=== PATIENT | male | born 1950 | race Caucasian/White ===

== ENCOUNTER 2024-10-22 03:30 | Inpatient (IN) | payer OTHER, MEDICARE ==
[2024-10-22] VITALS (17 sets, daily range): BP systolic 77–146; BP diastolic 41–76; PULSE 56–103; RESP 11–23; TEMP 98–99.2; O2SAT 70–100
[~2024-10-22] VITALS: Ht 188 cm; Wt 55.0 kg
[2024-10-22] MEDS: ALBUTEROL SULF 2.5 MG/0.5ML(0.5%) NEB SOLN HHN ONE (03:45)
[2024-10-22] MEDS: IPRATROPIUM BROM 0.5 MG/2.5ML INH SOL HHN ONE (03:45)
[2024-10-22] MEDS: ETOMIDATE (2MG/ML) 20ML VIAL IV ONE ×2 (03:55→04:24)
[2024-10-22] MEDS: SUCCINYLCHOLINE CHLORIDE 20 MG/ML 10ML VIAL IV ONE ×2 (03:55→04:24)
--- NOTE | 2024-10-22 04:02 | ED.PDOC ---
SOB-HPI HPI Comments 74 year old male brought in by EMS presents to the ED with a chief complaint of shortness of breath onset today. Per EMS, patient was experiencing shortness of breath, used albuterol and nebulizer at home without improvement. Upon EMS arrival, patient's O2 sat was 80% on RA and had bilateral leg swelling. Patient was placed on an NRB, O2 sat was 99%. PMHx HTN, AL. Patient is a poor historian. No other symptoms or modifying factors present at this time. Chief Complaint: Shortness of Breath Time Seen by MD: 03:35 Primary Care Provider: CHIQUIS Reviewed notes: Medications, Allergies Information Source: Patient, Emergency Med Personnel Mode of Arrival: EMS Severity: Moderate Timing: Hours Duration: Since onset Context: At Rest PE Risk Factors: None History of: None Prehospital treatment: Oxygen, Treatment Modifying Factors: Nothing Associated Signs and Symptoms: Leg Swelling Vital Signs Vital Signs Date Time Temp Pulse Resp B/P (MAP) Pulse Ox O2 Delivery O2 Flow Rate FiO2 10/22/24 07:30 57 19 100 Mechanical Ventilator+ 60 60 10/22/24 07:30 97.5 114/48 (70) 97.5 10/22/24 07:21 60 Physical Exam General: Patient is lethargic, in respiratory distress Skin: Skin in warm, dry and intact. Appropriate color for ethnicity. HEENT: The head is normocephalic and atraumatic. Conjunctivae are clear without exudates or hemorrhage. Sclera is non-icteric. EOM are intact. No signs of nystagmus. Eyelids are normal in appearance without swelling or lesions. Oral mucosa is pink and moist Neck: The neck is supple with normal range of motion. Positive JVD. Cardiac: Heart rate and rhythm are normal. No murmurs, gallops, or rubs are auscultated. Respiratory: Positive respiratory distress, tachypnea. Rhonchi bilaterally Abdominal: Abdomen is soft, non-tender without distention. Bowel sounds are present and normoactive in all four quadrants. Extremities: Upper and lower extremities are atraumatic in appearance without deformity, positive bilateral pitting edema Review of Systems: Unable to obtain Past Medical History PAST MEDICAL HISTORY: HTN, AL Surgical History: CABG Family History Family History: Reviewed,noncontributory to illness Social History Smoker: Cigarettes Alcohol: Denies ETOH Use Drugs: Denies Drug Use Lives In: Home Was a procedure done? Was a procedure done?: Yes Sedation Sedation?: Yes Informed consent obtained: No Sedation start time: 03:56 Sedation end time: 03:56 Sedation total time: patient is currently sedated Intubation Prep: Preoxygenation Pretreated with: Sedation Medicated with: Succinylcholine (100 mg), Other (etomidate 20 mg) Intubation Approach: Orotracheal Intubation size: cm (24) Informed consent obtained: Yes Risks/benefits/alt described: Yes Differential Dx Differential Diagnosis: Asthma, Bronchitis, Cardiogenic Shock, CHF, COPD, Myocardial infarction, Pneumonia, Pneumothorax, Pulmonary Embolism, Respiratory Distress, URI, Other X-Ray, Labs, Meds, VS Vital Signs Date Time Temp Pulse Resp B/P (MAP) Pulse Ox O2 Delivery O2 Flow Rate FiO2 10/22/24 07:30 57 19 100 Mechanical Ventilator+ 60 60 10/22/24 07:30 97.5 57 19 114/48 (70) 100 97.5 10/22/24 07:21 63 20 100 Mechanical Ventilator+ 60 60 60 10/22/24 07:00 97.5 58 24 110/48 (68) 100 97.5 10/22/24 07:00 110/48 10/22/24 07:00 110/48 10/22/24 07:00 110/48 10/22/24 06:50 61 13 116/47 (70) 100 10/22/24 06:45 59 15 89/52 (64) 100 10/22/24 06:45 82/52 10/22/24 06:40 85/46 10/22/24 06:30 59 15 85/46 (59) 100 10/22/24 06:30 93/45 10/22/24 06:30 93/45 10/22/24 06:30 93/45 10/22/24 06:30 85/45 10/22/24 06:30 93/45 10/22/24 06:15 97.7 63 20 100/45 (63) 100 97.7 10/22/24 06:15 97.7 63 20 100/45 (63) 100 97.7 10/22/24 06:15 100/45 10/22/24 06:15 100/45 10/22/24 06:15 100/45 10/22/24 06:03 67 20 77/41 (53) 100 60 10/22/24 06:00 76/40 10/22/24 06:00 77/41 10/22/24 06:00 68 20 76/40 (52) 100 10/22/24 05:55 75/43 10/22/24 05:50 74/44 10/22/24 05:45 67/42 10/22/24 05:45 67/42 10/22/24 05:45 71 20 67/42 (50) 100 10/22/24 05:30 69/35 10/22/24 05:30 71 20 69/35 (46) 100 10/22/24 05:15 71 20 93/48 (63) 100 10/22/24 05:00 73 18 121/57 (78) 100 10/22/24 05:00 121/57 10/22/24 04:45 66 22 132/78 (96) 96 10/22/24 04:45 132/78 10/22/24 04:36 146/76 10/22/24 04:30 76 12 95/54 (68) 98 10/22/24 04:30 95/54 10/22/24 04:15 92 22 146/76 (99) 96 10/22/24 04:11 83 20 146/76 (99) 70 100 10/22/24 04:10 146/76 10/22/24 04:00 95 22 150/75 (100) 100 10/22/24 04:00 92 22 96 Mechanical Ventilator+ 50 50 10/22/24 04:00 89 10/22/24 03:50 97.9 65 26 165/72 (103) 99 10/22/24 03:45 78 26 171/72 (105) 84 10/22/24 03:31 80 Lab Test 10/22/24 07:33 10/22/24 07:10 10/22/24 06:37 10/22/24 06:35 Range/Units Blood Gas Specimen Type Arterial Blood Gas Sample Site Right radial Blood Gas Patient Temperature 37.0 Arterial Blood Date Drawn [id number] Arterial Blood pH 7.290 L 7.350-7.450 Arterial Blood Partial Pressure CO2 53.1 H 35.0-48.0 mmHg Arterial Blood Partial Pressure O2 198.5 H 83.0-108.0 mmHg Arterial Blood HCO3 25.0 21.0-28.0 mmol/L Arterial Blood Oxygen Saturation 99.2 H 94.0-98.0 % Arterial Blood Base Excess -2.3 L -2.0-3.0 mmol/L Arterial Blood Oxyhemoglobin 97.2 94.0-98.0 % Arterial Blood Carboxyhemoglobin 1.4 0.5-1.5 % Arterial Blood Methemoglobin 0.6 0.0-1.5 % Javad Test Modified Blood Gas Total Hemoglobin 14.30 13.5-17.5 g/dL Blood Gas Set Respiration Rate 20.0 Blood Gas Modality Vent - ac FiO2 % 60.0 Blood Gas Tidal Volume 500.0 Blood Gas PEEP or CPAP 5.0 Troponin I High Sensitivity 504 *H </=54 ng/L Triglycerides Level 90 < 150 mg/dL Cholesterol Level 117 < 200 mg/dL LDL Cholesterol 64 < 100 mg/dL HDL Cholesterol 38 L 40-59 mg/dL Thyroid Stimulating Hormone (TSH) 2.77 0.55-4.78 uIU/mL Influenza Type A Antigen Negative Negative Influenza Type B Antigen Negative Negative SARS-CoV-2 Antigen (Rapid) Negative NEGATIVE Lactic Acid Level 2.9 *H 0.4-2.0 mmol/L Test 10/22/24 05:03 10/22/24 04:22 10/22/24 04:04 10/22/24 03:50 Range/Units Troponin I High Sensitivity 143 *H 155 *H </=54 ng/L Blood Gas Specimen Type Arterial Blood Gas Sample Site Right radial Blood Gas Patient Temperature 37.0 Arterial Blood Date Drawn [id number] Arterial Blood pH 7.053 *L 7.350-7.450 Arterial Blood Partial Pressure CO2 86.0 *H 35.0-48.0 mmHg Arterial Blood Partial Pressure O2 396.1 *H 83.0-108.0 mmHg Arterial Blood HCO3 23.4 21.0-28.0 mmol/L Arterial Blood Oxygen Saturation 99.8 H 94.0-98.0 % Arterial Blood Base Excess -9.1 L -2.0-3.0 mmol/L Arterial Blood Oxyhemoglobin 97.3 94.0-98.0 % Arterial Blood Carboxyhemoglobin 1.8 H 0.5-1.5 % Arterial Blood Methemoglobin 0.7 0.0-1.5 % Javad Test Modified Blood Gas Total Hemoglobin 15.10 13.5-17.5 g/dL Blood Gas Set Respiration Rate 20.0 Blood Gas Modality Vent - ac FiO2 % 100.0 Blood Gas Tidal Volume 450.0 Blood Gas PEEP or CPAP 5.0 Blood Gas Critical Value Read Back Yes Blood Gas Notified Whom Md geri gonzalez Blood Gas Notified Time [id number] Blood Gas Notified By Rt andrew reaves Urine Opiates Screen Neg NEGATIVE Urine Fentanyl Screen Neg NEGATIVE Urine Barbiturates Screen Neg NEGATIVE Urine Phencyclidine Screen Neg NEGATIVE Urine Amphetamines Screen Neg NEGATIVE Urine Benzodiazepines Screen Neg NEGATIVE Urine Cocaine Screen Neg NEGATIVE Urine Cannabinoids Screen Neg NEGATIVE White Blood Count 9.5 4.4-10.8 10^3/uL Red Blood Count 4.88 4.5-5.90 10^6/uL Hemoglobin 15.0 13.5-17.5 g/dL Hematocrit 45.2 41.0-53.0 % Mean Corpuscular Volume 92.6 80.0-100.0 fL Mean Corpuscular Hemoglobin 30.8 28.0-32.0 pg Mean Corpuscular Hemoglobin Concent 33.2 32.0-36.0 g/dL Red Cell Distribution Width 14.5 H 11.8-14.3 % Platelet Count 278 140-450 10^3/uL Mean Platelet Volume 7.4 6.9-10.8 fL Neutrophils (%) (Auto) 78.9 37.0-80.0 % Lymphocytes (%) (Auto) 14.0 10.0-50.0 % Monocytes (%) (Auto) 6.6 0.0-12.0 % Eosinophils (%) (Auto) 0.1 0.0-7.0 % Basophils (%) (Auto) 0.4 0.0-2.0 % Neutrophils # (Auto) 7.5 1.6-8.6 10 ^3/uL Lymphocytes # (Auto) 1.3 0.4-5.4 10 ^3/uL Monocytes # (Auto) 0.6 0-1.3 10 ^3/uL Eosinophils # (Auto) 0 0-0.8 10 ^3/uL Basophils # (Auto) 0 0-0.2 10 ^3/uL Nucleated Red Blood Cells 0.2 % Sodium Level 130 L 136-145 mmol/L Potassium Level 5.2 H 3.5-5.1 mmol/L Chloride Level 100 98-107 mmol/L Carbon Dioxide Level 24 20-31 mmol/L Anion Gap 6 5-15 Blood Urea Nitrogen 17 9-23 mg/dL Creatinine 1.28 0.700-1.30 mg/dL Glomerular Filtration Rate Calc 59 >90 mL/min BUN/Creatinine Ratio 13.3 10.0-20.0 Serum Glucose 303 H 74-106 mg/dL Lactic Acid Level 2.7 *H 0.4-2.0 mmol/L Calcium Level 9.1 8.7-10.4 mg/dL Total Bilirubin 0.4 0.2-1.0 mg/dL Aspartate Amino Transferase (AST) 67 H 13-40 U/L Alanine Aminotransferase (ALT) 52 H 7-40 U/L Alkaline Phosphatase 83 46-116 U/L B-Type Natriuretic Peptide 3521.35 0-100 pg/mL Total Protein 6.6 5.7-8.2 g/dL Albumin 4.0 3.2-4.8 g/dL Test 10/22/24 03:44 Range/Units POC Glucose 213 H 70-106 mg/dl Microbiology Date/Time Source Procedure Growth Status 10/22/24 04:12 Sputum Gram Stain - Final Resulted 10/22/24 04:12 Sputum Respiratory Culture Pending Resulted Current Medications Medications (Trade) Dose Ordered Sig/Diallo Route Start Time Stop Time Status Last Admin Methylprednisolone Sodium Succinate (Solu Medrol) 125 mg ONCE ONCE IV 10/22/24 03:45 10/22/24 03:46 DC 10/22/24 04:35 Furosemide (Lasix Injection) 40 mg ONCE ONCE IV 10/22/24 03:45 10/22/24 03:46 DC 10/22/24 04:36 Propofol 100 ml @ 1.566 mls/ hr Q24H IV 10/22/24 04:00 10/22/24 14:09 Etomidate 20 mg ONCE ONCE IV 10/22/24 04:00 10/22/24 04:01 DC 10/22/24 03:55 Succinylcholine Chloride (Quelicin) 100 mg ONCE ONCE IV 10/22/24 04:00 10/22/24 04:01 DC 10/22/24 03:55 Insulin Human Regular (InsuLIN R) 5 units ONCE ONCE IV 10/22/24 05:00 10/22/24 05:01 DC 10/22/24 05:58 Norepinephrine Bitartrate 250 ml @ 3.75 mls/hr Q24H IV 10/22/24 05:45 10/22/24 05:45 Midazolam HCl 50 ml @ 1 mls/hr Q24H IV 10/22/24 06:30 10/22/24 14:54 DC 10/22/24 11:46 [place] [id number] Ph: [phone] DIAGNOSTIC IMAGING Diagnostic Imaging Report : [id number] Signed PATIENT: JENNIFER HERMOSILLO ACCT: [id number] UNIT: [id number] : 1950 LOC: ER ROOM / BED: / AGE / SEX: 74 / M ADM STATUS: REG ER SERVICE [id number] ORDERING PHYSICIAN: DANIEL GONZALEZ MD PROCEDURE(s): CXRP - CHEST PORTABLE REASON: dyspnea ORDER NUMBER(s): [id number], ACCESSION NUMBER(s): [id number] CHEST RADIOGRAPH Indication: dyspnea Technique: Single frontal view of the chest was obtained Comparison: CHEST PORTABLE on DOS: 11/30/21 FINDINGS: Lines and Tubes: The enteric tube terminates in the region of the stomach. Endotracheal tube terminates 4.7 cm above the kathi. Lungs: Diffuse bilateral opacities. Pleura: No effusion. No pneumothorax. Cardiomediastinal contours: Unremarkable Bones: No acute osseous abnormality. IMPRESSION: 1. Support lines and tubes as described. 2. Diffuse bilateral opacities suspicious for multifocal pneumonia. ATED BY: VALDO SILVER MD DICTATED DATE/TIME: 10/22/24431 SIGNED BY: VALDO SILVER MD SIGNED DATE/TIME: 10/22/24431 CC: Time of 1ST Reevaluation: 04:05 Reevaluation 1ST: Unchanged Patient Education/Counseling: Diagnosis, Treatment, Prognosis Family Education/Counseling: No Family Present Additional Information The following tests were ordered, and results were reviewed by me: EKG-x3, CBC, CMP,BNP, XY CHEST, BLOOD ALCOHOL, TROP-x3, LA W/ REFLEX, ABG W/ CO-OX, RESPIRATORY CULTURE W/ GS, Additional Information was gathered from interviewing the following independent historians: EMS I reviewed and agreed with the following test results read by other providers: BHARATHI CHEST I discussed treatment and results with medical personnel and patient Departure 1 Departure Time of Disposition: 05:04 Impression: Primary Impression: Acute hypercapnic respiratory failure Additional Impressions: Acute exacerbation of CHF (congestive heart failure) Endotracheally intubated Elevated troponin I level Respiratory acidosis Pneumonia Disposition: ADMITTED INPATIENT Admit to: ICU Condition: Critical Comments 74-year-old male arrived to the emergency department in respiratory distress. Symptoms likely secondary to acute pulmonary edema or pneumonia. Shortly after his arrival his respiratory rate decreased, oxygen saturation decreased. He was intubated successfully. HS Troponin elevated will trend to determine if it is increasing/possibly secondary to ACS however patient did not report chest pain. NO ST elevations on EKG. VT increased, will repeat. CT head pending for evaluation of AMS, though likely secondary to respiratory status. Patient admitted for further treatment, monitoring and evaluation. Extensive evaluation was performed in attempt to identify or rule out: (See differential diagnosis section) The following tests were ordered, and results were reviewed by me: (See diagnostic results section) The following test were independently interpreted by me: Chest [id number] vascular congestion I reviewed and agreed with the following test results read by other providers: N/A I reviewed the following notes from the pt's past medical encounters: (None available at this time) Additional information was gathered from interviewing the following independent historians: EMS personel Discussion of management or test interpretation with external physician/other qualified health intensive care ambulance paramedic: Dr. Champion with [employer]. Auth # [id number] Addressed an acute or chronic illness that poses a threat to life or bodily function: Acute respiratory failure, respiratory acidosis,CHF exacerbation Decision regarding hospitalization or escalation of hospital level of care: Risk and benefits of admission for further treatment of patient's condition was considered. Due to patient's current clinical condition, high risk of decline and poor outcome if discharged and need for further inpatient management and monitoring, patient will be admitted to the hospital. Drug therapy requiring intensive monitoring for toxicity:Furosemide, propofol, etomidate, succinylcholine, Parenteral controlled substances: N/A Decision regarding elective major surgery with identified patient or procedure risk factors: N/A Decision regarding emergency major surgery: N/A Decision not to resuscitate or to de-escalate care because of poor prognosis: N/A Diagnosis or treatment significantly limited by social determinants of health: N/A Critical Care Note Critical Care Time?: Yes (35 min-critical care time only) Critical care comment: Due to a high probability of clinically significant, life threatening deterioration, the patient required my highest level of preparedness to intervene emergently and I personally spent this critical care time directly and personally managing the patient. This critical care time included obtaining a history; examining the patient; pulse oximetry; ordering and review of studies; arranging urgent treatment with development of a management plan; evaluation of patient's response to treatment; frequent reassessment; and, discussions with other providers. This critical care time was performed to assess and manage the high probability of imminent, life-threatening deterioration that could result in multi-organ failure. It was exclusive of separately billable procedures and treating other patients and teaching time. Please see my other sections and the rest of the note for further information on patient assessment and treatment. Stability Stability form required: No Heart Score Heart Score: Heart Score Response (Comments) Value History N/A 0 EKG N/A 0 Age N/A 0 Risk Factors N/A 0 Troponin N/A 0 Total 0 I personally scribed for DANIEL GONZALEZ MD ([email or web address]) on 10/22/24 at 04:02. Electronically submitted by Una Fuller ([email or web address]). I personally scribed for DANIEL GONZALEZ MD ([email or web address]) on 10/22/24 at 04:21. Electronically submitted by Una Fuller ([email or web address]). I personally scribed for DANIEL GONZALEZ MD ([email or web address]) on 10/22/24 at 04:44. Electronically submitted by Una Fuller ([email or web address]). I personally scribed for DANIEL GONZALEZ MD ([email or web address]) on 10/22/24 at 06:02. Electronically submitted by Una Fuller ([email or web address]). DANIEL GONZALEZ MD Oct 22, 2024 04:02
[2024-10-22] MEDS: PROPOFOL 100 ML IV SCH (04:10)
[2024-10-22] MEDS: PROPOFOL 100 ML IV ONE (04:24)
[2024-10-22 04:32] LABS: Basophils # (auto) 0 10 ^3/uL (0-0.2); Basophils % (auto) 0.4 % (0.0-2.0); Eosinophils # (auto) 0 10 ^3/uL (0-0.8); Eosinophils % (auto) 0.1 % (0.0-7.0); Hematocrit 45.2 % (41.0-53.0); Lymphocytes # (auto) 1.3 10 ^3/uL (0.4-5.4); Mean Corpuscular Hemoglobin 30.8 pg (28.0-32.0); Mean Corpuscular Hgb Conc. 33.2 g/dL (32.0-36.0); Mean Corpuscular Volume 92.6 fL (80.0-100.0); Monocytes # (auto) 0.6 10 ^3/uL (0-1.3); Monocytes % (auto) 6.6 % (0.0-12.0); Neutrophils # (auto) 7.5 10 ^3/uL (1.6-8.6); Neutrophils % (auto) 78.9 % (37.0-80.0); Nucleated Red Blood Cells % 0.2 %; Platelet Count (auto) 278 10^3/uL (140-450); Red Blood Cells 4.88 10^6/uL (4.5-5.90); Red Cell Distribution Width 14.5 % (11.8-14.3); White Blood Cell 9.5 10^3/uL (4.4-10.8)
--- NOTE | 2024-10-22 04:34 | DVH ---
CHEST RADIOGRAPH Indication: dyspnea Technique: Single frontal view of the chest was obtained Comparison: CHEST PORTABLE on DOS: 11/30/21 FINDINGS: Lines and Tubes: The enteric tube terminates in the region of the stomach. Endotracheal tube terminat es 4.7 cm above the kathi. Lungs: Diffuse bilateral opacities. Pleura: No effusion. No pneumothorax. Cardiomediastinal contours: Unremarkable Bones: No acute osseous abnormality. IMPRESSION: 1. Support lines and tubes as described. 2. Diffuse bilateral opacities suspicious for multifocal pneumonia.
[2024-10-22] MEDS: methylPREDNISolone SOD SUCC 125 MG/2 ML VL IV ONE (04:35)
[2024-10-22] MEDS: FUROSEMIDE 40 MG/4 ML VIAL IV ONE (04:36)
[2024-10-22 04:44] LABS: Base Excess -9.1 mmol/L (-2.0-3.0)
[2024-10-22 04:46] LABS: Alkaline Phosphatase 83 U/L (46-116); Anion Gap 6 (5-15); BUN/Creatinine Ratio 13.3 (10.0-20.0); Bilirubin, Total 0.4 mg/dL (0.2-1.0); Blood Urea Nitrogen 17 mg/dL (9-23); Calcium 9.1 mg/dL (8.7-10.4); Carbon Dioxide 24 mmol/L (20-31); Chloride 100 mmol/L (98-107)
[2024-10-22 04:47] LABS: Total Protein 6.6 g/dL (5.7-8.2)
[2024-10-22 04:50] LABS: Aspartate Aminotransferase 67 U/L (13-40); Glucose 303 mg/dL (74-106); Potassium 5.2 mmol/L (3.5-5.1); Sodium 130 mmol/L (136-145)
[2024-10-22 04:51] LABS: Alanine Aminotransferase 52 U/L (7-40)
[2024-10-22 04:54] LABS: Lactic Acid w/Reflex 2.7 mmol/L (0.4-2.0)
[2024-10-22] MEDS: NOREPINEPHRINE 8 MG/250ML KIT 250 ML IV SCH (05:45)
[2024-10-22] MEDS: NOREPINEPHRINE 8 MG/250ML KIT 250 ML IV ONE (05:52)
[2024-10-22] MEDS: InsuLIN REG 1unit/0.01ml Soln (100units/ml) IV ONE (05:58)
[2024-10-22] MEDS: MIDAZOLAM DRIP 50 mg/50mL 50 ML IV SCH (06:30)
[2024-10-22] MEDS: MIDAZOLAM DRIP 50 mg/50mL 50 ML IV ONE (06:33)
--- NOTE | 2024-10-22 07:03 | ECG ---
[facility] Test Date: 2024-10-22 Test Time: 03:31:43 Pat Name: JENNIFER HERMOSILLO Department: er Room: [facility] Gender: M [employer]: corrie : 1950 Requested By: EMERGENCY EMERGENCY Order Number: [id number] Reading MD: Bryant Lovell Measurements Intervals [place] Rate: 80 P: 85 ME: 110 QRS: -162 QRSD: 158 T: 26 QT: 397 QTc: 458 Interpretive Statements Sinus rhythm Borderline short ME interval Biatrial enlargement RBBB and LPFB Inferior infarct, age indeterminate Probable lateral infarct, old Artifact in lead(s) III,aVF,V6 Electronically Signed On 10-22-2024 9:51:30 PST by Bryant Lovell Please click the below link to view image of tracing.
[2024-10-22 07:29] LABS: Rapid Influenza A Negative (Negative); Rapid Influenza B Negative (Negative)
[2024-10-22 07:30] LABS: COVID19 ANTIGEN SOFIA FIA NEGATIVE (NEGATIVE)
[2024-10-22] MEDS ORDERED: MORPHINE SULFATE INJ 2 MG/ml SYRG IV PRN (07:45)
[2024-10-22] MEDS ORDERED: NITROGLYCERIN 0.4 MG SL TAB SL PRN (07:45)
[2024-10-22] MEDS ORDERED: ACETAMINOPHEN 325 MG TAB PO PRN (07:45)
[2024-10-22] MEDS: cefTRIAXone 1GM/50ML D5W 50 ML IV ONE (07:45)
[2024-10-22] MEDS ORDERED: ONDANSETRON HCL 4 MG/2 ML VIAL IV PRN (07:45)
[2024-10-22] MEDS ORDERED: ALBUTEROL SULF 2.5 MG/0.5ML(0.5%) NEB SOLN NEB PRN (07:45)
[2024-10-22] MEDS ORDERED: IPRATROPIUM BROM 0.5 MG/2.5ML INH SOL NEB PRN (07:45)
[2024-10-22 07:50] LABS: Base Excess -2.3 mmol/L (-2.0-3.0)
[2024-10-22] MEDS ORDERED: ASPI-325 PO (08:05)
[2024-10-22] MEDS ORDERED: ATOR40TA52 PO (08:05)
[2024-10-22] MEDS ORDERED: CLOP75TA70 PO (08:05)
[2024-10-22] MEDS ORDERED: MET25T PO (08:05)
--- NOTE | 2024-10-22 08:07 | DVHHP2 ---
History of Present Illness Reason for Visit: Shortness of breath History of Present Illness Josh Harmon is a 74-year-old male with past medical history of hypertension, COPD, CHF, [place], and CABG x4 greater than 10 years ago at [facility] [place] who presents to the ED for SOB x several months. 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 reports that patient has smokes cigarettes is also on the patch, drinks alcohol, and denies illicit drug use. Patient's granddaughter who is an ICU nurse reports that patient had abnormal D-dimer had an ultrasound DVT done which was negative. Patient was noted to have to 3+ edema bilateral lower extremities and was given Lasix to start today however was not able to start due to his worsening symptoms and here for evaluation. Family also reports that patient was able to ambulate but was short of breath while speaking no more than 3 words at a time. Patient also took nebulizer treatments with no relief. Family denies any recent illnesses or sick contacts. Cardiovascular: CHF, HTN, [place] Pulmonary: COPD Past Surgical History: CABG Family History: DM, Other (Dad with diabetes and CHF) Smoke: <1 pack per day ALCOHOL: occassional Drugs: None Lives: with Family Domestic Violence: Neg Review of Systems Constitutional: No: Fever, Chills, Sweats, Weakness, Malaise, Other Eyes: No: Pain, Vision change, Conjunctivae inflammation, Eyelid inflammation, Other, Redness ENT: No: Ear pain, Ear discharge, Nose pain, Nose discharge, Nose congestion, Mouth pain, Mouth swelling, Throat pain, Throat swelling, Other Respiratory: Shortness of breath; No: Cough, Dry, SOB with excertion, Wheezing, Hemoptysis, Pleuritic Pain, Sputum, Wheezing, Other Cardiovascular: No: Chest Pain, Palpitations, Orthopnea, Paroxysmal Noc. Dyspnea, Edema, Lt Headedness, Other Gastrointestinal: No: Nausea, Vomiting, Abdominal Pain, Diarrhea, Constipation, Melena, Hematochezia, Other Genitourinary: No Dysuria, No Frequency, No Incontinence, No Hematuria, No Retention, No Other Musculoskeletal: No: other, neck pain, shoulder pain, arm pain, back pain, hand pain, leg pain, foot pain Skin: No: Rash, Lesions, Jaundice, Bruising, Other Neurological: No: Weakness, Numbness, Incoordination, Change in speech, Confusion, Seizures, Other Allergies: Coded Allergies: NO KNOWN ALLERGIES (Unverified , 11/21/13) Medications Current Medications Medications Dose Ordered Sig/Diallo Route Start Time Stop Time Status Last Admin Dose Admin Propofol 100 ml @ 1.566 mls/ hr Q24H IV 10/22/24 04:00 10/22/24 04:10 1.566 MLS/HR Norepinephrine Bitartrate 250 ml @ 3.75 mls/hr Q24H IV 10/22/24 05:45 10/22/24 05:45 3.75 MLS/HR Midazolam HCl 50 ml @ 1 mls/hr Q24H IV 10/22/24 06:30 10/22/24 06:30 1 MLS/HR Ondansetron HCl 4 mg Q4HP PRN IV 10/22/24 07:45 UNV Enoxaparin Sodium 30 mg DAILY SC 10/22/24 10:00 UNV Acetaminophen 650 mg Q6HP PRN PO 10/22/24 07:45 UNV Nitroglycerin 0.4 mg Q5MINP PRN SL 10/22/24 07:45 UNV Morphine Sulfate 2 mg Q30M PRN IV 10/22/24 07:45 UNV Ceftriaxone Sodium 50 ml @ 100 mls/hr DAILY@09 IV 10/22/24 09:00 UNV Azithromycin 250 ml @ 125 mls/hr DAILY IV 10/22/24 10:00 UNV Methylprednisolone Sodium Succinate 40 mg Q8HR IV 10/22/24 14:00 UNV Albuterol 2.5 mg Q4HR NEB 10/22/24 10:00 UNV Albuterol 2.5 mg Q2HPRN PRN NEB 10/22/24 07:45 UNV Ipratropium [place] 0.5 mg Q4HR NEB 10/22/24 10:00 UNV Ipratropium [place] 0.5 mg Q2HPRN PRN NEB 10/22/24 07:45 UNV Exam Vital Signs Vital Signs Date Time Temp Pulse Resp B/P (MAP) Pulse Ox O2 Delivery O2 Flow Rate FiO2 10/22/24 07:21 63 20 100 Mechanical Ventilator+ 60 60 60 10/22/24 07:00 97.5 110/48 (68) 97.5 HEENT: Atraumatic Respiratory: Normal air movement Cardiovascular: Normal S1, Normal S2 Abdominal: Soft Extremities: No cyanosis Skin: No significant lesion Labs/Xrays Labs Test 10/22/24 07:33 10/22/24 07:10 10/22/24 06:37 10/22/24 06:35 Range/Units Blood Gas Specimen Type Arterial Blood Gas Sample Site Right radial Blood Gas Patient Temperature 37.0 Arterial Blood Date Drawn [id number] Arterial Blood pH 7.290 L 7.350-7.450 Arterial Blood Partial Pressure CO2 53.1 H 35.0-48.0 mmHg Arterial Blood Partial Pressure O2 198.5 H 83.0-108.0 mmHg Arterial Blood HCO3 25.0 21.0-28.0 mmol/L Arterial Blood Oxygen Saturation 99.2 H 94.0-98.0 % Arterial Blood Base Excess -2.3 L -2.0-3.0 mmol/L Arterial Blood Oxyhemoglobin 97.2 94.0-98.0 % Arterial Blood Carboxyhemoglobin 1.4 0.5-1.5 % Arterial Blood Methemoglobin 0.6 0.0-1.5 % Javad Test Modified Blood Gas Total Hemoglobin 14.30 13.5-17.5 g/dL Blood Gas Set Respiration Rate 20.0 Blood Gas Modality Vent - ac FiO2 % 60.0 Blood Gas Tidal Volume 500.0 Blood Gas PEEP or CPAP 5.0 Troponin I High Sensitivity 504 *H </=54 ng/L Influenza Type A Antigen Negative Negative Influenza Type B Antigen Negative Negative SARS-CoV-2 Antigen (Rapid) Negative NEGATIVE Lactic Acid Level 2.9 *H 0.4-2.0 mmol/L Test 10/22/24 04:22 10/22/24 03:50 10/22/24 03:44 Range/Units Blood Gas Critical Value Read Back Yes Blood Gas Notified Whom Md geri martinez Blood Gas Notified Time [id number] Blood Gas Notified By Rt andrew reaves White Blood Count 9.5 4.4-10.8 10^3/uL Red Blood Count 4.88 4.5-5.90 10^6/uL Hemoglobin 15.0 13.5-17.5 g/dL Hematocrit 45.2 41.0-53.0 % Mean Corpuscular Volume 92.6 80.0-100.0 fL Mean Corpuscular Hemoglobin 30.8 28.0-32.0 pg Mean Corpuscular Hemoglobin Concent 33.2 32.0-36.0 g/dL Red Cell Distribution Width 14.5 H 11.8-14.3 % Platelet Count 278 140-450 10^3/uL Mean Platelet Volume 7.4 6.9-10.8 fL Neutrophils (%) (Auto) 78.9 37.0-80.0 % Lymphocytes (%) (Auto) 14.0 10.0-50.0 % Monocytes (%) (Auto) 6.6 0.0-12.0 % Eosinophils (%) (Auto) 0.1 0.0-7.0 % Basophils (%) (Auto) 0.4 0.0-2.0 % Neutrophils # (Auto) 7.5 1.6-8.6 10 ^3/uL Lymphocytes # (Auto) 1.3 0.4-5.4 10 ^3/uL Monocytes # (Auto) 0.6 0-1.3 10 ^3/uL Eosinophils # (Auto) 0 0-0.8 10 ^3/uL Basophils # (Auto) 0 0-0.2 10 ^3/uL Nucleated Red Blood Cells 0.2 % Sodium Level 130 L 136-145 mmol/L Potassium Level 5.2 H 3.5-5.1 mmol/L Chloride Level 100 98-107 mmol/L Carbon Dioxide Level 24 20-31 mmol/L Anion Gap 6 5-15 Blood Urea Nitrogen 17 9-23 mg/dL Creatinine 1.28 0.700-1.30 mg/dL Glomerular Filtration Rate Calc 59 >90 mL/min BUN/Creatinine Ratio 13.3 10.0-20.0 Serum Glucose 303 H 74-106 mg/dL Calcium Level 9.1 8.7-10.4 mg/dL Total Bilirubin 0.4 0.2-1.0 mg/dL Aspartate Amino Transferase (AST) 67 H 13-40 U/L Alanine Aminotransferase (ALT) 52 H 7-40 U/L Alkaline Phosphatase 83 46-116 U/L B-Type Natriuretic Peptide 3521.35 0-100 pg/mL Total Protein 6.6 5.7-8.2 g/dL Albumin 4.0 3.2-4.8 g/dL POC Glucose 213 H 70-106 mg/dl CHEST RADIOGRAPH Indication: s/po central line placement verification Technique: Single frontal view of the chest was obtained Comparison: XY CHEST PORTABLE on DOS: 10/22/24, CHEST PORTABLE on DOS: 11/30/21, XY CHEST PORTABLE on DOS: 10/22/24 FINDINGS: Lines and Tubes: The enteric tube terminates in the region of the stomach. Endotracheal tube terminates 4.7 cm above the kathi. Lungs: Diffuse bilateral opacities. Pleura: No effusion. No pneumothorax. Cardiomediastinal contours: Unremarkable Bones: No acute osseous abnormality. IMPRESSION: 1. Support lines and tubes as described. 2. Diffuse bilateral opacities suspicious for multifocal pneumonia. CHEST RADIOGRAPH Indication: dyspnea Technique: Single frontal view of the chest was obtained Comparison: CHEST PORTABLE on DOS: 11/30/21 FINDINGS: Lines and Tubes: The enteric tube terminates in the region of the stomach. Endotracheal tube terminates 4.7 cm above the kathi. Lungs: Diffuse bilateral opacities. Pleura: No effusion. No pneumothorax. Cardiomediastinal contours: Unremarkable Bones: No acute osseous abnormality. IMPRESSION: 1. Support lines and tubes as described. Assessment/Plan Assessment/Plan Assessment/Plan: Acute hypoxic respiratory failure likely due to PNA Respiratory acidosis Lactic acidosis likely due to sepsis Hyponatremia Hyperkalemia Bradycardia Hyperkalemia protocol done in ED Elevated troponins Labs Chest x-ray Sedation Pressor Respiratory treatments Diuretics IV steroids ABG COVID test Flu test RSV test CT head Respiratory culture Troponin BNP EKG Lactic Blood cultures Last echo on 11/22/2023 EF 58% Echo ordered Cardiology consult IV antibiotics-ceftriaxone plus azithromycin A.m. chest x-ray A.m. labs UDS Lipid panel TSH CT chest Hyperglycemia A1c ISS and Accu-Cheks Chronic Hypertension Continue home medications History of CHF Strict I&Os Daily weights Tobacco use Patient currently uses nicotine patch Counseled patient's family on cessation of tobacco use FEN/PPX NPO Hep-Lock DVT ppx -patient on Plavix PUD ppx - Protonix Discussed plan of care with patient's , granddaughter, and nurse Home medications reconciled Admit to ICU Plan discussed with: Spouse, Other (Granddaughter Vanessa, she will ) My Orders Orders - TAQUERIA ERICKSON Procedure Category Date Status Time Admit ADMIT 10/22/24 Transmitted 07:43 Allergies [facility] 10/22/24 Transmitted 07:43 Code Status CODE 10/22/24 Transmitted 07:43 Ondansetron Hcl PHA 10/22/24 Logged (Zofran) 07:45 Complete Blood Count LAB 10/23/24 Verified 04:00 Comprehensive LAB 10/23/24 Verified Metabolic Panel 04:00 Npo (Nothing By DIET 10/22/24 Transmitted Mouth) Diet Breakfast Enoxaparin Sodium PHA 10/22/24 Logged (Lovenox) 10:00 Acetaminophen Tablet PHA 10/22/24 Logged (Tylenol Tablet) 07:45 Nitroglycerin PHA 10/22/24 Logged Sublingual (Ntrostat 07:45 Morphine Sulfate PHA 10/22/24 Logged Injection 07:45 Stat Ekg For Chest [facility] 10/22/24 Transmitted Pain 07:43 Notify Md Of Changes [facility] 10/22/24 Transmitted From Base 07:43 Pipe Cutter For [facility] 10/22/24 Transmitted 24 Hours 07:43 Emergency Dysrhythmia [facility] 10/22/24 Transmitted Protocol 07:43 Rhythm Strips Once [facility] 10/22/24 Transmitted Every Shift 07:43 Oxygen By Nasal RT 10/22/24 Transmitted Cannula 07:43 Ceftriaxone 1gm/50ml PHA 10/22/24 Logged D5w (Rocephin) 09:00 Ceftriaxone 1gm/50ml PHA 10/22/24 Logged D5w (Rocephin) 07:45 Azithromycin 500mg/ PHA 10/22/24 Logged 250ml (Zithromax 50 10:00 Methylprednisolone PHA 10/22/24 Logged Sod Succ (Solu Medrol 14:00 Albuterol Medneb PHA 10/22/24 Logged (Ventolin Medneb) 10:00 Albuterol Medneb PHA 10/22/24 Logged (Ventolin Medneb) 07:45 Ipratropium Medneb PHA 10/22/24 Logged (Atrovent Medneb) 10:00 Ipratropium Medneb PHA 10/22/24 Logged (Atrovent Medneb) 07:45 Furosemide Injection PHA 10/22/24 Verified (Lasix Injection) 18:00 Date of Service: Oct 22, 2024 Billing Provider: TAQUERIA ERICKSONP Common Visit Codes: [id number] INP/OBS CARE (HIGH) TAQUERIA ERICKSON UPHOLSTERER APPRENTICE Oct 22, 2024 08:07
--- NOTE | 2024-10-22 08:18 | DVH ---
CHEST RADIOGRAPH Indication: s/po central line placement verification Technique: Single frontal view of the chest was obtained Comparison: XY CHEST PORTABLE on DOS: 10/22/24, CHEST PORTABLE on DOS: 11/30/21, XY CHEST PORTABLE on DO S: 10/22/24 FINDINGS: Lines and Tubes: The enteric tube terminates in the region of the stomach. Endotracheal tube terminat es 4.7 cm above the kathi. Lungs: Diffuse bilateral opacities. Pleura: No effusion. No pneumothorax. Cardiomediastinal contours: Unremarkable Bones: No acute osseous abnormality. IMPRESSION: 1. Support lines and tubes as described. 2. Diffuse bilateral opacities suspicious for multifocal pneumonia.
[2024-10-22] MEDS: cefTRIAXone 1GM/50ML D5W 50 ML IV SCH (09:00)
[2024-10-22] MEDS: AZITHROMYCIN 500MG/ 250ML 250 ML IV SCH (10:00)
--- NOTE | 2024-10-22 10:11 | DVHINCON2 ---
Date Seen: Oct 22, 2024 Referring Physician WILIAM Rhodes Reason for Consultation Elevated troponin History of Present Illness This is a 74-year-old male patient who presents to the emergency room for chief complaint of shortness of breath for three months. Patient is mechanically ventilated and chemically sedated at time of assessment. History obtained from patients , Estrella. According to the patient's , the patient has been having shortness of breath for approximately three months. She noticed worsening shortness of breath yesterday approximately 3 hours prior to emergency room arrival. She states that she called emergency medical services after patient stated that he was feeling severely short of breath prompted her to call 911. Upon emergency room arrival, the patient was urgently intubated. Initial twelve lead electrocardiogram reveals normal sinus rhythm with right bundle branch block. Initial troponin level of 155ng/L with up trend and peak level at 504ng/L. Significant past medical history includes ST-elevation myocardial in farction status post PTCA X 1 RICARDO to RCA in 2013, severe coronary artery disease status post triple-vessel CABG in 2013, hypertension, dyslipidemia, COPD, hepatitis-B, and anxiety. 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 Past Medical History Past medical history reviewed. No other significant than mentioned above. Past Surgical History Triple vessel CABG in 2013 Hernia repair Family History Family history reviewed. Social History The patient has a 30 pack-year history, smokes approximately half a pack per day Denies illicit drug use Denies any alcohol use (As per patients ) Allergies: Coded Allergies: NO KNOWN ALLERGIES (Unverified , 11/21/13) Home Meds Reported Medications Nicotine (Nicotine Transdermal Syst) 7 Mg/24 Hr Dis, 1 DAILY 10/22/24 Clopidogrel Bisulfate (CLOPIDOGREL) 75 Mg Tab, 1 DAILY 10/22/24 Aspirin (Aspirin Low Dose) 81 Mg Tab, 1 DAILY 10/22/24 Atorvastatin Calcium (ATORVASTATIN CALCIUM) 40 Mg Tab, 1 DAILY 10/22/24 Metoprolol Tartrate (Lopressor) 25 Mg Tb, 1 10/22/24 Home Meds Home medications reviewed. Current Medications Current Medications Medications (Trade) Dose Ordered Sig/Diallo Route PRN Reason Start Time Stop Time Status Last Admin Propofol 100 ml @ 1.566 mls/ hr Q24H IV 10/22/24 04:00 10/22/24 08:06 Norepinephrine Bitartrate 250 ml @ 3.75 mls/hr Q24H IV 10/22/24 05:45 10/22/24 05:45 Midazolam HCl 50 ml @ 1 mls/hr Q24H IV 10/22/24 06:30 10/22/24 06:30 Ondansetron HCl (Zofran) 4 mg Q4HP PRN IV NAUSEA / VOMITING 10/22/24 07:45 UNV Enoxaparin Sodium (Lovenox) 30 mg DAILY SC 10/22/24 10:00 UNV Acetaminophen (Tylenol Tablet) 650 mg Q6HP PRN PO PAIN SCALE 1-3 OR TEMP>100.4 10/22/24 07:45 UNV Nitroglycerin (Ntrostat Sublingual) 0.4 mg Q5MINP PRN SL FOR CHEST PAIN 10/22/24 07:45 UNV Morphine Sulfate 2 mg Q30M PRN IV FOR CHEST PAIN 10/22/24 07:45 UNV Ceftriaxone Sodium 50 ml @ 100 mls/hr DAILY@09 IV 10/22/24 09:00 UNV Azithromycin 250 ml @ 125 mls/hr DAILY IV 10/22/24 10:00 UNV Methylprednisolone Sodium Succinate (Solu Medrol) 40 mg Q8HR IV 10/22/24 14:00 UNV Albuterol (Ventolin Medneb) 2.5 mg Q4HR NEB 10/22/24 10:00 UNV Albuterol (Ventolin Medneb) 2.5 mg Q2HPRN PRN NEB SHORTNESS OF BREATH 10/22/24 07:45 UNV Ipratropium [place] (Atrovent Medneb) 0.5 mg Q4HR NEB 10/22/24 10:00 UNV Ipratropium [place] (Atrovent Medneb) 0.5 mg Q2HPRN PRN NEB SHORTNESS OF BREATH 10/22/24 07:45 UNV Furosemide (Lasix Injection) 40 mg BIDD IV 10/22/24 18:00 UNV Review of Systems Constitutional: No symptom reported Ears, Nose, & Throat: No symptom reported Eyes: No symptom reported Neurological: No symptoms reported Pulmonary/Respiratory: Shortness of breath Cardiovascular: No symptom reported Gastrointestinal: No symptom reported Genitourinary: No symptom reported Musculoskeletal: No symptom reported Skin: No symptom reported Psychiatric: No symptom reported Endocrine: No symptom reported Hematologic/Lymphatic: No symptom reported Vital Signs Vital Signs Date Time Temp Pulse Resp B/P (MAP) Pulse Ox O2 Delivery O2 Flow Rate FiO2 10/22/24 08:57 98.0 56 20 120/59 98.0 10/22/24 08:02 100 60 10/22/24 07:30 Mechanical Ventilator+ 10/22/24 07:21 60 Physical Exam General Appearance: Calm, relaxed Pulmonary/Respiratory: Diminished bilateral lower lobes Cardiovascular/Chest: Regular rate and rhythm. Peripheral Pulses: 2+ Radial (R). 2+ Radial (L). 2+ Pedal (R). 2+ Pedal (L) Abdominal Exam: Normal bowel sounds. Soft, non-tender. No hepatosplenomegaly. No masses. Ankle Exam: 4+ pitting edema Lower extremities: 4+ pitting edema Neuro/Mental Status: Chemically sedated Thoughts/Psych: Deferred Appearance: No acute distress. Skin Exam: Normal inspection. Normal color. Warm and dry. Labs/Diagnostic Data Labs Test 10/22/24 07:33 10/22/24 07:10 10/22/24 06:37 10/22/24 06:35 Range/Units Blood Gas Specimen Type Arterial Blood Gas Sample Site Right radial Blood Gas Patient Temperature 37.0 Arterial Blood Date Drawn [id number] Arterial Blood pH 7.290 L 7.350-7.450 Arterial Blood Partial Pressure CO2 53.1 H 35.0-48.0 mmHg Arterial Blood Partial Pressure O2 198.5 H 83.0-108.0 mmHg Arterial Blood HCO3 25.0 21.0-28.0 mmol/L Arterial Blood Oxygen Saturation 99.2 H 94.0-98.0 % Arterial Blood Base Excess -2.3 L -2.0-3.0 mmol/L Arterial Blood Oxyhemoglobin 97.2 94.0-98.0 % Arterial Blood Carboxyhemoglobin 1.4 0.5-1.5 % Arterial Blood Methemoglobin 0.6 0.0-1.5 % Javad Test Modified Blood Gas Total Hemoglobin 14.30 13.5-17.5 g/dL Blood Gas Set Respiration Rate 20.0 Blood Gas Modality Vent - ac FiO2 % 60.0 Blood Gas Tidal Volume 500.0 Blood Gas PEEP or CPAP 5.0 Troponin I High Sensitivity 504 *H </=54 ng/L Influenza Type A Antigen Negative Negative Influenza Type B Antigen Negative Negative SARS-CoV-2 Antigen (Rapid) Negative NEGATIVE Lactic Acid Level 2.9 *H 0.4-2.0 mmol/L Test 10/22/24 04:22 10/22/24 03:50 10/22/24 03:44 Range/Units Blood Gas Critical Value Read Back Yes Blood Gas Notified Whom Md geri martinez Blood Gas Notified Time [id number] Blood Gas Notified By Rt andrew reaves White Blood Count 9.5 4.4-10.8 10^3/uL Red Blood Count 4.88 4.5-5.90 10^6/uL Hemoglobin 15.0 13.5-17.5 g/dL Hematocrit 45.2 41.0-53.0 % Mean Corpuscular Volume 92.6 80.0-100.0 fL Mean Corpuscular Hemoglobin 30.8 28.0-32.0 pg Mean Corpuscular Hemoglobin Concent 33.2 32.0-36.0 g/dL Red Cell Distribution Width 14.5 H 11.8-14.3 % Platelet Count 278 140-450 10^3/uL Mean Platelet Volume 7.4 6.9-10.8 fL Neutrophils (%) (Auto) 78.9 37.0-80.0 % Lymphocytes (%) (Auto) 14.0 10.0-50.0 % Monocytes (%) (Auto) 6.6 0.0-12.0 % Eosinophils (%) (Auto) 0.1 0.0-7.0 % Basophils (%) (Auto) 0.4 0.0-2.0 % Neutrophils # (Auto) 7.5 1.6-8.6 10 ^3/uL Lymphocytes # (Auto) 1.3 0.4-5.4 10 ^3/uL Monocytes # (Auto) 0.6 0-1.3 10 ^3/uL Eosinophils # (Auto) 0 0-0.8 10 ^3/uL Basophils # (Auto) 0 0-0.2 10 ^3/uL Nucleated Red Blood Cells 0.2 % Sodium Level 130 L 136-145 mmol/L Potassium Level 5.2 H 3.5-5.1 mmol/L Chloride Level 100 98-107 mmol/L Carbon Dioxide Level 24 20-31 mmol/L Anion Gap 6 5-15 Blood Urea Nitrogen 17 9-23 mg/dL Creatinine 1.28 0.700-1.30 mg/dL Glomerular Filtration Rate Calc 59 >90 mL/min BUN/Creatinine Ratio 13.3 10.0-20.0 Serum Glucose 303 H 74-106 mg/dL Calcium Level 9.1 8.7-10.4 mg/dL Total Bilirubin 0.4 0.2-1.0 mg/dL Aspartate Amino Transferase (AST) 67 H 13-40 U/L Alanine Aminotransferase (ALT) 52 H 7-40 U/L Alkaline Phosphatase 83 46-116 U/L B-Type Natriuretic Peptide 3521.35 0-100 pg/mL Total Protein 6.6 5.7-8.2 g/dL Albumin 4.0 3.2-4.8 g/dL POC Glucose 213 H 70-106 mg/dl Assessment NSTEMI, rule out progressive coronary artery disease Severe coronary artery disease s/p triple vessel CABG in [address]-elevation myocardial infarction status post PTCA X 1 RICARDO to RCA in 2013 (on Plavix and ASA) Acute on chronic HFrEF, NYHA class IV, newly diagnosed Moderate tricuspid valve regurgitation Hypertension Dyslipidemia Pneumonia COPD Hepatitis B Anxiety Plan/Recommendation We will continue with the following plan/recommendations (Dr. Lovell): Case reviewed with . Transthoracic echocardiogram reveals an EF 25-30% with global hypokinesis especially of the inferior basal segment of the left ventricle. Unable to initiate GDMT considering that the patient is on vas opressor therapy. Given the patient's significant cardiac history, significant up-trend in troponin levels, and echocardiogram results, we will recommend for the patient to undergo a coronary angiogram with left heart catheterization. Spoke with patient's who was at bedside regarding plan for coronary angiogram.The procedure was discussed with the patient's in full detail including risks and benefits. Risks include but are not limited to bleeding, contrast-induced nephropathy, stroke, and even . The patient's understands and is agreeable for the patient to undergo the procedure. We will schedule the patient for coronary angiogram on 10/23/24 at first availability. In the meantime, continue vasopressors for hemodynamic support. Continue dual antiplatelet therapy and lipid-lowering agent. Diuretics as tolerated. Continue with close cardiac surveillance. Thank you for allowing us to care for this patient. Please call with any questions or concerns. Critical care time spent: 44 minutes This medical document was created using an electronic medical record system with voice recognition software and computerized dictation system. Although this document has been carefully reviewed, there might still be some phonetic and typographical errors. Occasional wrong-word or ``sound-alike substitutions may have occurred due to the inherent limitations of voice recognition software. These areas are purely typographical due to imperfections of the software programs and do not reflect any compromise in the patient's medical care. Please read the chart carefully and recognize, using context, where these substi tutions have occurred. Plan discussed with: Spouse, Other (Bedside RN) NYHA Physical activity limitations: Class4(Severe)discomfort (w any activit,symptoms at rest) Date of Service: Oct 22, 2024 Billing Provider: NURA CATES Cardiology Common Codes: [id number] INP/OBS CARE (High) Cardiology Consultation Codes: [id number] CONSULT <45MIN NURA CATES Oct 22, 2024 10:11
[2024-10-22] MEDS: ALBUTEROL SULF 2.5 MG/0.5ML(0.5%) NEB SOLN ONE (10:28)
[2024-10-22] MEDS: IPRATROPIUM BROM 0.5 MG/2.5ML INH SOL ONE (10:28)
[2024-10-22] MEDS ORDERED: NICO7DIS19 TD (10:32)
[2024-10-22] MEDS: IPRATROPIUM BROM 0.5 MG/2.5ML INH SOL NEB SCH (10:36)
[2024-10-22] MEDS: ALBUTEROL SULF 2.5 MG/0.5ML(0.5%) NEB SOLN NEB SCH (10:37)
[2024-10-22 10:55] LABS: LDL Cholesterol 64 mg/dL (< 100); Triglycerides 90 mg/dL (< 150)
[2024-10-22 10:57] LABS: Cholesterol 117 mg/dL (< 200)
[2024-10-22 11:07] LABS: Benzodiazephine Screen, Urine Neg (NEGATIVE)
[2024-10-22 11:15] LABS: HDL Cholesterol 38 mg/dL (40-59)
[2024-10-22 11:16] LABS: Amphetamine Screen, Urine Neg (NEGATIVE); Barbiturate Scree,Urine Neg (NEGATIVE); Cannabinoid Screen, Urine Neg (NEGATIVE); Cocaine Screen, Urine Neg (NEGATIVE); Opiate Scree,Urine Neg (NEGATIVE); Phencyclidine Screen, Urine Neg (NEGATIVE)
[2024-10-22] MEDS: IOHEXOL 300 MG/ML 100ML BOTTLE IJ ONE (11:19)
[2024-10-22] MEDS: ENOXAPARIN SOD 30 MG/0.3 ML SYRINGE SC SCH (11:44)
--- NOTE | 2024-10-22 12:27 | DVH ---
EXAM: CT HEAD WITHOUT CONTRAST HISTORY: ams COMPARISON: None TECHNIQUE: Axial images of the head were obtained and reformatted in coronal and sagittal planes. All CT scans at this medical facility are performed using dose modulation techniques as appropriate t o a performed exam including the following: Automated exposure control was utilized; adjustment of th e MA and/or KV according to patient size; and use of iterative reconstruction technique. CT Dose: CTDI volume is 6 mGy. Dose-length product is 17 40 mGy*cm FINDINGS: There is no evidence of acute intracranial hemorrhage, mass, mass effect midline shift. There is no h ydrocephalus or extra-axial fluid collection. Norman-white matter differentiation is maintained. The visualized paranasal sinuses and mastoid air cells are clear. The calvarium is intact. IMPRESSION: 1. No acute intracranial process. HS:Y
[2024-10-22] MEDS: methylPREDNISolone SOD SUCC 40 MG/ML VL IV SCH (13:44)
--- NOTE | 2024-10-22 13:51 | DVHNC2 ---
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 Indication: Hypotension, CVP monitoring Room prepared for procedure: Yes Patrol Police Sergeant performed hand hygien: Yes Maximal sterile barrier precau: Mask/Eye shield, Sterile gown Skin Preparation: Chlorhexidine gluconate, Providine iodine Skin preparation completely dr: Yes Insertion site: Right, Internal jugular Central line catheter type: Otc-[id number]-yqa dialysis Number of lumens: 3 Antiseptic ointment applied to: Yes Post Assessment: Chest X-Ray Date of Service: Oct 22, 2024 Billing Provider: AIDEN MEDINA MD Common Visit Codes: [id number] INP/OBS CARE (HIGH) Secondary Visit Codes: [id number] STANDBY SERVICE Consultation Codes: [id number] CONSULT <45MIN Procedure Codes: [id number] NON-TUNNEL CV CATH AIDEN MEDINA MD Oct 22, 2024 13:51
[2024-10-22] MEDS ORDERED: methylPREDNISolone SOD SUCC 40 MG/ML VL IV SCH (14:00)
--- NOTE | 2024-10-22 14:01 | DVH ---
EXAM: CT CT CHEST WITH AND WO HISTORY: resp failure COMPARISON: None TECHNIQUE: Axial images were obtained and reformatted in coronal and sagittal planes. All CT scans at this medical facility are performed using dose modulation techniques as appropriate to a performed exam including the following: Automated exposure control was utilized; adjustment of the MA and/or K V according to patient size; and use of iterative reconstruction technique. CT Dose: CTDI volume is 60.62 mGy. Dose-length product is 1740.14 mGy*cm FINDINGS: Medical devices: ETT ends above the level the kathi. Enteric tube extends to slightly below the gas troesophageal junction. Lower neck: Unremarkable. Cardiomediastinal: The heart is normal in size. Median sternotomy wires and mediastinal vascular cl ips are seen . The 1st and 2nd order branches of the pulmonary arteries are patent. Aorta is normal in caliber with moderate atherosclerotic calcified plaque formation. Lungs: small right pleural effusion with mild adjacent compressive atelectasis. Mild reticular opac ities are seen in the bilateral upper lobes, more prominent on the right side. Bones and Soft Tissues: No acute abnormality. Upper Abdomen: No acute abnormality. Other: None. IMPRESSION: 1. The enteric tube ends slightly below the GE junction. Recommend 10 cm advancement for optimal pos itioning. 2. The ETT is in satisfactory position. 3. Small right pleural effusion with mild adjacent compressive atelectasis. 4. Mild scattered bilateral reticular opacities more prominent in the right upper lobe that may repre sent edema or infiltrates. No lobar consolidation noted. 5. The 1st and 2nd order branches of the pulmonary arteries are patent.
[2024-10-22] MEDS ORDERED: Jevity 1.2 Cal/Fiber 1 Liter GT SCH (15:00)
--- NOTE | 2024-10-22 15:01 | DVHPN2 ---
Subjective Patient chemically sedated Reviewed: Care Plan, H&P, Labs, Medications Changes from previous H/P or p: No Changes General: Per HPI Eyes: No Pain, No Vision change, No Conjunctivae inflammation, No Eyelid inflammation, No Other, No Redness ENT: No Ear pain, No Ear discharge, No Nose pain, No Nose discharge, No Nose congestion, No Mouth pain, No Mouth swelling, No Throat pain, No Throat swelling, No Other Cardiovascular: No Chest Pain, No Palpitations, No Orthopnea, No Paroxysmal Noc. Dyspnea, No Edema, No Lt Headedness, No Other Respiratory: No Cough, No Dry; Shortness of breath; No SOB with excertion, No Wheezing, No Hemoptysis, No Pleuritic Pain, No Sputum, No Other Gastrointestinal: No Nausea, No Vomiting, No Abdominal Pain, No Diarrhea, No Constipation, No Melena, No Hematochezia, No Other Genitourinary: No Dysuria, No Frequency, No Incontinence, No Hematuria, No Retention, No Other Musculoskeletal: No other, No neck pain, No shoulder pain, No arm pain, No back pain, No hand pain, No leg pain, No foot pain Skin: No Rash, No Lesions, No Jaundice, No Bruising, No Other Objective Vitals Vital Signs Date Time Temp Pulse Resp B/P (MAP) Pulse Ox O2 Delivery O2 Flow Rate FiO2 10/22/24 14:36 63 20 110/59 (76) 100 30 10/22/24 08:57 98.0 98.0 10/22/24 07:30 Mechanical Ventilator+ 10/22/24 07:21 60 Intake/Output Intake and Output 10/22/24 07:00 Intake Total 193.48 ml Balance 193.48 ml Intake IV Total 193.48 ml General Appearance: Other (Chemically sedated) HEENT: Atraumatic, PERRLA Neck: Carotid Bruits [place] Lungs: Clear to auscultation, Normal air movement, Other (Mechanical ventilation) Cardiovascular: Normal S1, Normal S2 Abdomen: Normal bowel sounds Back: Flank Tenderness, Midline Tenderness Neuro: Other (Unable to assess) Skin: Dry, Intact Psych/Mental Status: Other (Unable to assess) Medications Current Medications Medications Dose Ordered Sig/Diallo Route Start Time Stop Time Status Last Admin Dose Admin Propofol 100 ml @ 1.566 mls/ hr Q24H IV 10/22/24 04:00 10/22/24 14:09 15.66 MLS/HR Norepinephrine Bitartrate 250 ml @ 3.75 mls/hr Q24H IV 10/22/24 05:45 10/22/24 05:45 3.75 MLS/HR Ondansetron HCl 4 mg Q4HP PRN IV 10/22/24 07:45 Acetaminophen 650 mg Q6HP PRN PO 10/22/24 07:45 Nitroglycerin 0.4 mg Q5MINP PRN SL 10/22/24 07:45 Morphine Sulfate 2 mg Q30M PRN IV 10/22/24 07:45 Ceftriaxone Sodium 50 ml @ 100 mls/hr DAILY@09 IV 10/22/24 09:00 10/22/24 09:00 100 MLS/HR Azithromycin 250 ml @ 125 mls/hr DAILY IV 10/22/24 10:00 10/22/24 10:00 125 MLS/HR Albuterol 2.5 mg Q4HR NEB 10/22/24 10:00 10/22/24 14:36 2.5 MG Albuterol 2.5 mg Q2HPRN PRN NEB 10/22/24 07:45 Ipratropium [place] 0.5 mg Q4HR NEB 10/22/24 10:00 10/22/24 14:36 0.5 MG Ipratropium [place] 0.5 mg Q2HPRN PRN NEB 10/22/24 07:45 Furosemide 40 mg BIDD IV 10/22/24 18:00 Budesonide 0.5 mg BID NEB 10/22/24 22:00 Methylprednisolone Sodium Succinate 40 mg Q12H IV 10/23/24 02:00 UNV Enoxaparin Sodium 50 mg Q12HR SC 10/22/24 22:00 UNV Fentanyl Citrate 250 ml @ 2.5 mls/hr Q24H IV 10/22/24 15:00 UNV Enteral Nutritional Formula 1,000 ml 30ML/HR GT 10/22/24 15:00 UNV Laboratory Results Laboratory Tests 10/22/24 03:50 Chemistry Test 10/22/24 03:50 Albumin 4.0 g/dL (3.2-4.8) Calcium Level 9.1 mg/dL (8.7-10.4) Total Protein 6.6 g/dL (5.7-8.2) Lipid panel Test 10/22/24 07:10 Cholesterol Level 117 mg/dL (< 200) HDL Cholesterol 38 mg/dL (40-59) L Triglycerides Level 90 mg/dL (< 150) Cardiac Markers Test 10/22/24 03:50 B-Type Natriuretic Peptide 3521.35 pg/mL (0-100) LFT Test 10/22/24 03:50 Alanine Aminotransferase (ALT) 52 U/L (7-40) H Alkaline Phosphatase 83 U/L (46-116) Aspartate Amino Transferase (AST) 67 U/L (13-40) H Total Bilirubin 0.4 mg/dL (0.2-1.0) HgA1c, TSH Test 10/22/24 07:10 Thyroid Stimulating Hormone (TSH) 2.77 uIU/mL (0.55-4.78) Blood Gas Results Test 10/22/24 04:22 10/22/24 07:33 Arterial Blood pH 7.053 (7.350-7.450) 7.290 (7.350-7.450) FiO2 % 100.0 60.0 Microbiology Microbiology Date/Time Source Procedure Growth Status 10/22/24 04:12 Sputum Gram Stain - Final Resulted 10/22/24 04:12 Sputum Respiratory Culture Pending Resulted Labs and/or images reviewed: Labs reviewed by me, Image(s) reviewed by me Assessment/Plan Assessment/Plan Impression: -acute on chronic hypoxic and hypercarbic respiratory failure -COPD with exacerbation -rule out community-acquired pneumonia, probable Gram-positive/Gram-negative etiology -NSTEMI,? Type 2 -history of CAD with previous CABG and stent placement -pulmonary cachexia -shock, questionable etiology including sepsis versus cardiogenic Plan: -continue current ventilator settings -repeat BMP, lactic acid level, troponin level -cardiology consultation -start full-dose anticoagulation with Lovenox -CT angiogram of the chest reviewed. Negative for PE. -continue antibiotic therapy with azithromycin and Rocephin -bronchodilators q.4 hours -start tube feeding -long discussion made with the patient's and daughter who were bedside. All questions answered. Critical care time spent with patient discussing and formulating plan of care: 90 minutes. This does not include time spent performing procedures. This medical document was created using an electronic medical record system with [employer] system. Although this document has been carefully reviewed, there may still be some phonetic and typographical errors. These areas are purely typographical due to imperfections of the software programs, and do not reflect any compromise in the patient's medical care. Plan discussed with: Patient, Spouse, Daughter, Other (RN) My Orders Orders - LAMONT ESCOBAR NP Procedure Category Date Status Time Methylprednisolone PHA 10/23/24 Logged Sod Succ (Solu Medrol 02:00 Basic Metabolic Panel LAB 10/22/24 Transmitted 14:48 Lactic Acid W/ Reflex LAB 10/22/24 Transmitted Order 14:48 Troponin-I Hs LAB 10/22/24 Transmitted 14:48 Enoxaparin Sodium PHA 10/22/24 Logged (Lovenox) 22:00 Fentanyl Drip PHA 10/22/24 Logged 2500mcg/250mlns 15:00 Nutritional PHA 10/22/24 Logged Supplements (Jevity 15:00 Abg W/ Co-Ox RT 10/22/24 Logged 14:48 Date of Service: Oct 22, 2024 Billing Provider: LAMONT ESCOBAR NP Common Visit Codes: [id number] CARE 30-74 MIN, [id number] CARE-EACH +30MIN LAMNOT ESCOBAR NP Oct 22, 2024 15:01
[2024-10-22 15:29] LABS: Chloride 102 mmol/L (98-107); Potassium 4.4 mmol/L (3.5-5.1)
[2024-10-22 15:30] LABS: Anion Gap 8 (5-15); Carbon Dioxide 25 mmol/L (20-31)
[2024-10-22 15:32] LABS: Base Excess -1.3 mmol/L (-2.0-3.0)
[2024-10-22 15:36] LABS: BUN/Creatinine Ratio 14.8 (10.0-20.0); Blood Urea Nitrogen 19 mg/dL (9-23)
[2024-10-22 15:46] LABS: Calcium 8.4 mg/dL (8.7-10.4); Glucose 149 mg/dL (74-106); Sodium 135 mmol/L (136-145)
[2024-10-22] MEDS: ENOXAPARIN SOD 100 MG/1 ML SYRINGE SC SCH (16:03)
[2024-10-22] MEDS: fentaNYL Drip 2500mCg/250mlNS 250 ML IV SCH (16:35)
--- NOTE | 2024-10-22 17:18 | DVHSR ---
APPROVED REPORT EXAM: Two-dimensional and M-mode echocardiogram with Doppler and color Doppler. Blood Pressure: 120/59 mmHg INDICATION Elevated Trops RISK FACTORS Height: 74, Weight: 115 DIMENSIONS LVDd4.8 (3.8-5.7cm)LA (2D)4.5 (1.9-4.0cm)Aortic Root (2.0-3.7cm) LVDs3.9 (2.5-4.0cm)LA (MM) (1.9-4.0cm)Aortic Cusp Exc (1.5-2.0cm) EF (%) 40.0 (55-70%)Rt. Atrium3.5 (1.9-4.0cm)Asc. Aorta cm Mitral Valve MitralMitral Stenosis E wave0.86m/sMV Mean GR.mmHg A wave0.56m/sMV Peak GR.80mmHg E/A ratio1.52D MVAcm2 DECEL [id number] 1/2 [id number] IVRTmsDop MVA1.88cm2 Aortic Valve Aortic ValveAortic Stenosis V11.03m/Willie Mean GR.4mmHg V21.45m/Willie Peak GR.9mmHg LVOT Diameter1.6 (1.8-2.4cm)Doppler AVA1.43cm2 AI P 1/2 Scom332.24ms Tricuspid Valve TR Velocity2.79m/s [id number] Other Information Technically limited study due to patient on a vent. Conclusion Technically difficult study. Sinus rhythm. Left ventricular enlargement. Aortic root enlargement. Left atrial enlargement. Notable aortic sclerosis. Diminished excursion of the right coronary cusp with calcification of the cusps. Mitral and tricuspid are structurally normal. Pulmonic normal. Left ventricular function is diminished. EF is about 25-30%. Global hypokinesis especially of the i nferior basal segment of the left ventricle. Moderate tricuspid regurgitation. Mild aortic insufficiency. No pericardial effusion masses or vegetations discernible.
[2024-10-22] MEDS: FUROSEMIDE 40 MG/4 ML VIAL IV SCH (18:17)
[2024-10-22] MEDS: BUDESONIDE (INHALATION) 0.5 MG/2 ML NEB NEB SCH (18:41)
[2024-10-22] MEDS: ATORVASTATIN 20 MG TAB PO SCH (22:00)
[2024-10-23] VITALS (97 sets, daily range): BP systolic 81–125; BP diastolic 46–66; PULSE 54–89; RESP 17–78; TEMP 96.7–99.2; O2SAT 98–100
[2024-10-23] MEDS: methylPREDNISolone SOD SUCC 40 MG/ML VL IV SCH (01:43)
[2024-10-23 03:42] LABS: Basophils # (auto) 0 10 ^3/uL (0-0.2); Basophils % (auto) 0.1 % (0.0-2.0); Eosinophils # (auto) 0 10 ^3/uL (0-0.8); Eosinophils % (auto) 0.2 % (0.0-7.0); Hematocrit 41.5 % (41.0-53.0); Hemoglobin 14.1 g/dL (13.5-17.5); Lymphocytes # (auto) 0.6 10 ^3/uL (0.4-5.4); Lymphocytes % (auto) 5.4 % (10.0-50.0); Mean Corpuscular Hemoglobin 30.9 pg (28.0-32.0); Mean Corpuscular Hgb Conc. 33.9 g/dL (32.0-36.0); Mean Corpuscular Volume 91.1 fL (80.0-100.0); Monocytes # (auto) 0.7 10 ^3/uL (0-1.3); Monocytes % (auto) 6.2 % (0.0-12.0); Neutrophils # (auto) 9.6 10 ^3/uL (1.6-8.6); Neutrophils % (auto) 88.1 % (37.0-80.0); Nucleated Red Blood Cells % 0.1 %; Platelet Count (auto) 270 10^3/uL (140-450); Red Blood Cells 4.56 10^6/uL (4.5-5.90); White Blood Cell 10.9 10^3/uL (4.4-10.8)
[2024-10-23 03:53] LABS: Albumin 3.3 g/dL (3.2-4.8); Alkaline Phosphatase 69 U/L (46-116); Anion Gap 9 (5-15); BUN/Creatinine Ratio 15.7 (10.0-20.0); Bilirubin, Total 0.3 mg/dL (0.2-1.0); Blood Urea Nitrogen 21 mg/dL (9-23); Calcium 8.9 mg/dL (8.7-10.4); Carbon Dioxide 25 mmol/L (20-31); Chloride 102 mmol/L (98-107); Potassium 4.2 mmol/L (3.5-5.1); Total Protein 5.7 g/dL (5.7-8.2)
[2024-10-23 04:14] LABS: Sodium 136 mmol/L (136-145)
[2024-10-23 04:15] LABS: Alanine Aminotransferase 42 U/L (7-40); Aspartate Aminotransferase 42 U/L (13-40); Glucose 170 mg/dL (74-106)
--- NOTE | 2024-10-23 05:28 | DVH ---
EXAM: XR Chest, 1 View CLINICAL INDICATION: pna, NGT placement TECHNIQUE: Frontal view of the chest. COMPARISON: XY CHEST PORTABLE on DOS: 10/22/24, XY CHEST PORTABLE on DOS: 10/22/24, CHEST PORTABLE on D OS: 11/30/21 FINDINGS: LUNGS AND PLEURAL SPACES: Mild pulmonary congestion. No consolidation. No pneumothorax. HEART: Unremarkable. No cardiomegaly. MEDIASTINUM: Unremarkable. Normal mediastinal contour. BONES/JOINTS: Unremarkable. No acute fracture. TUBES, LINES AND DEVICES: Enteric tube tip in the stomach. The endotracheal tube (ETT) is in [employer] position. Right internal jugular central venous catheter tip in the superior vena cava. OTHER FINDINGS: . None. . .. IMPRESSION: Mild pulmonary congestion.
[2024-10-23 06:29] LABS: Base Excess 1.4 mmol/L (-2.0-3.0)
[2024-10-23] MEDS: IODIXANOL 320MG/ML 100ML BTL IV ONE ×5 (07:16→10:11)
[2024-10-23] MEDS: HEPARIN IN NS 1000Units/500mL 1,500 ML ONE (07:17)
[2024-10-23] MEDS: LIDOCAINE 2%HCL (LOCAL ANESTH.) INJ 20ML MDV ONE (07:45)
[2024-10-23] MEDS: SODIUM CHL 0.9% 50 ML ONE ×2 (08:02→09:20)
[2024-10-23] MEDS: ANGIOMAX 250 MG VIAL IV ONE ×2 (08:02→09:20)
--- NOTE | 2024-10-23 08:09 | DVH ---
EXAM: XY CHEST PORTABLE Indication: ETT ADVANCE Technique: Frontal view of the chest. Comparison: XY CHEST XRAY 1 VIEW on DOS: 10/23/24, XY CHEST PORTABLE on DOS: 10/22/24, XY CHEST PORTABLE on DOS: 10/22/24, CHEST PORTABLE on DOS: 11/30/21, XY CHEST XRAY 1 VIEW on DOS: 10/23/24 FINDINGS: LUNGS AND PLEURAL SPACES: Mild pulmonary congestion. No consolidation. No pneumothorax. HEART: Unremarkable. No cardiomegaly. MEDIASTINUM: Unremarkable. Normal mediastinal contour. BONES/JOINTS: Unremarkable. No acute fracture. TUBES, LINES AND DEVICES: Enteric tube tip in the stomach. The endotracheal tube (ETT) is in [employer] position. Right internal jugular central venous catheter tip in the superior vena cava. IMPRESSION: No significant change compared to prior exam.
[2024-10-23] MEDS: ASPirin 81 mg TAB PO SCH (10:00)
[2024-10-23] MEDS: CLOPIDOGREL BISULFATE 75 MG TAB PO SCH (10:00)
--- NOTE | 2024-10-23 10:07 | DVHPN2 ---
Subjective Patient chemically sedated Reviewed: Care Plan, H&P, Labs, Medications Changes from previous H/P or p: No Changes General: Per HPI Eyes: No Pain, No Vision change, No Conjunctivae inflammation, No Eyelid inflammation, No Other, No Redness ENT: No Ear pain, No Ear discharge, No Nose pain, No Nose discharge, No Nose congestion, No Mouth pain, No Mouth swelling, No Throat pain, No Throat swelling, No Other Cardiovascular: No Chest Pain, No Palpitations, No Orthopnea, No Paroxysmal Noc. Dyspnea, No Edema, No Lt Headedness, No Other Respiratory: No Cough, No Dry; Shortness of breath; No SOB with excertion, No Wheezing, No Hemoptysis, No Pleuritic Pain, No Sputum, No Other Gastrointestinal: No Nausea, No Vomiting, No Abdominal Pain, No Diarrhea, No Constipation, No Melena, No Hematochezia, No Other Genitourinary: No Dysuria, No Frequency, No Incontinence, No Hematuria, No Retention, No Other Musculoskeletal: No other, No neck pain, No shoulder pain, No arm pain, No back pain, No hand pain, No leg pain, No foot pain Skin: No Rash, No Lesions, No Jaundice, No Bruising, No Other Objective Vitals Vital Signs Date Time Temp Pulse Resp B/P (MAP) Pulse Ox O2 Delivery O2 Flow Rate FiO2 10/23/24 09:44 30 10/23/24 08:00 78 20 99 Mechanical Ventilator+ 10/23/24 07:15 98/52 (67) 10/23/24 07:00 97.6 97.6 10/22/24 07:21 60 Intake/Output Intake and Output 10/23/24 07:00 Intake Total 847.9410 ml Output Total 1300 ml Balance -452.0590 ml Intake Oral 0 ml IV Total 847.9410 ml Output Urine Total 1300 ml Stool Total 0 ml Exam Patient was assessed in the cardiac catheterization lab. General Appearance: Other (Chemically sedated) HEENT: Atraumatic, PERRLA Neck: Carotid Bruits [place] Lungs: Clear to auscultation, Normal air movement, Other (Mechanical ventilation) Cardiovascular: Normal S1, Normal S2 Abdomen: Normal bowel sounds Back: Flank Tenderness, Midline Tenderness Neuro: Other (Unable to assess) Skin: Dry, Intact Psych/Mental Status: Other (Unable to assess) Medications Current Medications Medications Dose Ordered Sig/Diallo Route Start Time Stop Time Status Last Admin Dose Admin Propofol 100 ml @ 1.566 mls/ hr Q24H IV 10/22/24 04:00 10/23/24 00:50 10.962 MLS/HR Norepinephrine Bitartrate 250 ml @ 3.75 mls/hr Q24H IV 10/22/24 05:45 10/22/24 05:45 3.75 MLS/HR Ondansetron HCl 4 mg Q4HP PRN IV 10/22/24 07:45 Acetaminophen 650 mg Q6HP PRN PO 10/22/24 07:45 Nitroglycerin 0.4 mg Q5MINP PRN SL 10/22/24 07:45 Morphine Sulfate 2 mg Q30M PRN IV 10/22/24 07:45 Ceftriaxone Sodium 50 ml @ 100 mls/hr DAILY@09 IV 10/22/24 09:00 10/22/24 09:00 100 MLS/HR Azithromycin 250 ml @ 125 mls/hr DAILY IV 10/22/24 10:00 10/22/24 10:00 125 MLS/HR Albuterol 2.5 mg Q4HR NEB 10/22/24 10:00 10/23/24 06:19 2.5 MG Albuterol 2.5 mg Q2HPRN PRN NEB 10/22/24 07:45 Ipratropium [place] 0.5 mg Q4HR NEB 10/22/24 10:00 10/23/24 06:19 0.5 MG Ipratropium [place] 0.5 mg Q2HPRN PRN NEB 10/22/24 07:45 Furosemide 40 mg BIDD IV 10/22/24 18:00 10/23/24 05:27 40 MG Budesonide 0.5 mg BID NEB 10/22/24 22:00 10/23/24 06:19 0.5 MG Methylprednisolone Sodium Succinate 40 mg Q12H IV 10/23/24 02:00 10/23/24 01:43 40 MG Enoxaparin Sodium 50 mg Q12HR SC 10/22/24 22:00 10/22/24 16:03 50 MG Fentanyl Citrate 250 ml @ 2.5 mls/hr Q24H IV 10/22/24 15:00 10/22/24 16:35 2.5 MLS/HR Enteral Nutritional Formula 1,000 ml 30ML/HR GT 10/22/24 15:00 Clopidogrel Bisulfate 75 mg DAILY PO 10/23/24 10:00 Aspirin 81 mg DAILY PO 10/23/24 10:00 Atorvastatin Calcium 40 mg HS PO 10/22/24 22:00 Sodium Chloride 1,000 ml @ 75 mls/hr [id number] IV 10/23/24 10:00 10/23/24 23:19 UNV Laboratory Results Laboratory Tests 10/23/24 03:11 Chemistry Test 10/22/24 15:07 10/23/24 03:11 Calcium Level 8.4 mg/dL (8.7-10.4) L 8.9 mg/dL (8.7-10.4) Albumin 3.3 g/dL (3.2-4.8) Total Protein 5.7 g/dL (5.7-8.2) LFT Test 10/23/24 03:11 Alanine Aminotransferase (ALT) 42 U/L (7-40) H Alkaline Phosphatase 69 U/L (46-116) Aspartate Amino Transferase (AST) 42 U/L (13-40) H Total Bilirubin 0.3 mg/dL (0.2-1.0) Blood Gas Results Test 10/22/24 15:15 10/23/24 06:20 Arterial Blood pH 7.375 (7.350-7.450) 7.371 (7.350-7.450) FiO2 % 30.0 30.0 Microbiology Microbiology Date/Time Source Procedure Growth Status 10/22/24 04:12 Sputum Gram Stain - Final Resulted 10/22/24 04:12 Sputum Respiratory Culture Pending Resulted 10/22/24 03:50 Blood Blood Culture - Preliminary NO GROWTH AFTER 24 HOURS OF INCUBATION. Resulted Labs and/or images reviewed: Labs reviewed by me, Image(s) reviewed by me Assessment/Plan Assessment/Plan Impression: -acute on chronic hypoxic and hypercarbic respiratory failure -COPD with exacerbation -rule out community-acquired pneumonia, probable Gram-positive/Gram-negative etiology -NSTEMI, type 1 secondary to circumflex artery -history of CAD with previous CABG and stent placement -pulmonary cachexia -shock, questionable etiology including sepsis versus cardiogenic -acute diastolic heart failure Plan: Events: Repeat troponin level increased yesterday. ABG within normal limits. Patient was started on therapeutic dose Lovenox. Patient was taken to cardiac catheterization lab this a.m. for which she was receiving intervention to his circumflex artery. Continue dual antiplatelet therapy per Dr. Lovell discretion. -continue current ventilator settings -cardiology consultation : Recommendations reviewed -gentle IV hydration with diuresis over the next 24 hours -start full-dose anticoagulation with Lovenox -CT angiogram of the chest reviewed. Negative for PE. -continue antibiotic therapy with azithromycin and Rocephin -bronchodilators q.4 hours -start tube feeding -repeat labs, chest x-ray, ABG in a.m. Critical care time spent with patient discussing and formulating plan of care: 40 minutes. This does not include time spent performing procedures. This medical document was created using an electronic medical record system with [employer] system. Although this document has been carefully reviewed, there may still be some phonetic and typographical errors. These areas are purely typographical due to imperfections of the software programs, and do not reflect any compromise in the patient's medical care. Plan discussed with: Patient, Other My Orders Orders - LAMONT ESCOBAR NP Procedure Category Date Status Time Methylprednisolone PHA 10/23/24 In Process Sod Succ (Solu Medrol 02:00 Enoxaparin Sodium PHA 10/22/24 In Process (Lovenox) 22:00 Fentanyl Drip PHA 10/22/24 In Process 2500mcg/250mlns 15:00 Nutritional PHA 10/22/24 In Process Supplements (Jevity 15:00 Abg W/ Co-Ox RT 10/22/24 Logged 14:48 Communication Order ORDERS 10/22/24 Transmitted 15:53 Urine Bacterial BRODIE 10/23/24 In Process Culture 04:41 Mrsa Screen BRODIE 10/23/24 In Process 01:00 Chest Xray 1 View XY 10/23/24 Resulted 04:00 * Wound Consult CONS 10/23/24 Transmitted Abg W/ Co-Ox RT 10/23/24 Logged 06:00 Sodium Chloride 0.9% PHA 10/23/24 Logged 10:00 Complete Blood Count LAB 10/24/24 Verified 04:00 Chest Portable XY 10/24/24 Logged 04:00 Abg W/ Co-Ox RT 10/24/24 Logged 04:00 Date of Service: Oct 23, 2024 Billing Provider: LAMONT ESCOBAR NP Common Visit Codes: [id number] CARE 30-74 MIN LAMONT ESCOBAR NP Oct 23, 2024 10:07
[2024-10-23] MEDS: CLOPIDOGREL BISULFATE 75 MG TAB ONE (10:26)
[2024-10-23] MEDS: ASPirin 325 MG TAB ONE (10:35)
--- NOTE | 2024-10-23 11:31 | DVH ---
EXAM: XY CHEST PORTABLE Indication: CHECK ETT PLACEMENT Technique: Frontal view of the chest. Comparison: XY CHEST PORTABLE on DOS: 10/23/24, XY CHEST XRAY 1 VIEW on DOS: 10/23/24, XY CHEST PORTABLE on DOS: 10/22/24, XY CHEST PORTABLE on DOS: 10/22/24, CHEST PORTABLE on DOS: 11/30/21, XY CHEST PORTABLE o n DOS: 10/23/24 FINDINGS: LUNGS AND PLEURAL SPACES: Mild pulmonary congestion. No consolidation. No pneumothorax. HEART: Unremarkable. No cardiomegaly. MEDIASTINUM: Unremarkable. Normal mediastinal contour. BONES/JOINTS: Unremarkable. No acute fracture. TUBES, LINES AND DEVICES: Enteric tube tip in the stomach. The endotracheal tube (ETT) is in [employer] position. Right internal jugular central venous catheter tip in the superior vena cava. IMPRESSION: No significant change compared to prior exam.
[2024-10-23] MEDS: SODIUM CHLORIDE 0.9% 1,000 ML IV SCH (11:40)
--- NOTE | 2024-10-23 11:58 | DVHOP2 ---
Operative Report - 2 Report Details Date: 10/23/24 Preop Diagnosis: CAD Postop Diagnosis: Severe CAD Surgeon: Henrietta Lovell MD Anesthesiologist: Conscious sedation and IV sedation. Patient on a ventilator Anesthesia: Mac, Local Consent: The patient was informed of the risks and benefits of the procedure. These include but are not limited to complications of anesthesia, postoperative infection, incomplete relief of symptoms, recurrence of symptoms, damage to blood vessels, nerves and tendons, deep venous thrombosis, pulmonary embolism and possible need for repeat surgery in the future. Complications: No complications Estimated Blood Loss: 10 cc Findings: Coronary artery disease. Severe calcification of the circumflex. Occluded saphenous graft to the marginal. Occluded LAD proximally. Indications for Surgery: Non STEMI Name of Procedure Performed Bilateral cine coronary angiography. Ventriculography not performed. Left heart catheterization precipitated complete heart block given underlying right bundle branch block Procedure Details Procedure Details: Prior local anesthesia with 2% lidocaine to the right groin and full informed consent obtained patient was prepped and draped in usual fashion followed by placement of a six Qat[place] sheath into the right femoral artery through which six [place] Tong catheters were used to cannulate both right and left coronary ostium. A pigtail catheter was not used. The right coronary catheter was used to cannulate the left internal mammary artery and saphenous grafts. Hemodynamics aortic blood pressure was 110/70. End-diastolic pressure was not obtained. Coronary anatomy. The RCA is a large vessel it is normal in its proximal and mid section there is moderate plaquing throughout its proximal mid and distal segments. The PDA and posterolateral branches are free of significant disease. The saphenous grafts to the RCA is occluded. We could not find a 2nd graft within the aorta. The left main is large and normal. Left anterior descending is occluded proximally. The circumflex is occluded proximally. There is slight filling of the distal circumflex marginal. The saphenous graft to the circumflex could not be found. The internal mammary artery to the LAD is patent in its entirety without stenosis. The anastomosis is wide and open. The LAD distal to the anastomosis is free of significant disease. Ventriculography was not performed. Angioplasty was performed for which a three five EBU was placed. A whisper wire was placed across the area of stenosis and we attempted balloon angioplasty however we could not get a balloon through for which we placed a Sapphire 1 mm balloon and dilated the proximal and mid circumflex. We were then able to pass a shockwave balloon 2.5 x 12 into the proximal portion but could not get it past the proximal. Several treatments rounds were made. We then placed a guide liner into the proximal circumflex to help with support. We were able to take the balloon distally into the distal circumflex however this was a diffusely diseased vessel. We were able to place a two five by 17 mm stent distally prior to the bifurcation of the posterolateral branch. There was some diffuse irregularity at the posterolateral and distally into the circumflex. Possibly a dissection. We then placed a two 5 x 17 stent into the proximal circumflex and an 3.0 mm x 8 mm stent into the proximal circumflex itself. There was improved flow however distal runoff was questionable. ALFREDO two flow was noted. Patient tolerated procedure well there were no further complications. Impression three-vessel coronary artery disease with patent saphenous grafts to the LAD. Occluded graft to the RCA with patent RCA. Occluded saphenous graft to the circumflex with reconstitution of flow and aperture of the PETROGRAPHER to the circumflex coronary artery. Recommendations: dual antiplatelet therapy to continue. Lipid-lowering therapy. Guarded prognosis This was considered salvage angioplasty given patient is on a ventilator with a decreased ejection fraction. Condition Poor Disposition Still a Patient Date of Service: Oct 23, 2024 Billing Provider: HENRIETTA LOVELL Sr., MD Cardiology Common Codes: [id number] INP/OBS CARE (High) Cardiology Procedure Codes: 16654 -PTCA W/STENT PLACEMENT ( aperture of PETROGRAPHER circumflex) HENRIETTA LOVELL Sr., MD Oct 23, 2024 11:58
[2024-10-23] MEDS ORDERED: AMLO1TAB22 PO (12:27)
[2024-10-23] MEDS ORDERED: FURO20TA3 PO (12:27)
[2024-10-23] MEDS ORDERED: TIOT17SP IN (12:27)
[2024-10-23] MEDS ORDERED: ALBU108A5 IN (12:27)
--- NOTE | 2024-10-23 23:23 | DVHINCON2 ---
Date of service: Oct 23, 2024 Referring Physician Gio Mclean NP Reason for Consultation Acute on chronic hypoxic respiratory failure requiring mechanical ventilator, COPD exacerbation. History of Present Illness A 74-year-old man with past medical history of COPD, hypertension, CHF, CT, and CAD s/p CABG x4 greater than [address] [facility] [place] presented to ED on 10/22/24 for SOB x several months. Family reported patient has been short of breath for several months, SOB with ambulation and out of breath when talking. 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 reports patient smokes cigarettes, is also on the patch. Granddaughter, who is an ICU nurse, reports patient had abnormal D-dimer and ultrasound was negative for DVT. Patient had 2 to 3+ edema in bilateral lower extremities and was given Lasix to start on day of presentation; however was not able to start due to his worsening symptoms and presented here for evaluation. Patient also took nebulizer treatments with no relief. Family denies any recent illnesses or sick contacts. Patient was admitted for further care and pulmonary consultation is requested for evaluation and management d/t the above findings. Review of Systems: 14-point review of systems negative unless otherwise noted above. Past Medical History: Hypertension, COPD, CHF, CT, and coronary artery disease Past Surgical History: CABG x4 greater than [address] [facility] [place] Medications: Reviewed. Allergies: No known drug allergies. Family History: Diabetes, CHF. Social History: Smoker. Smokes cigarettes, <1 pack per day. Is on the patch. Drinks alcohol occasionally. No illicit drug use. Family History: Cardiovascular disease G8 FATHER Diabetes mellitus G8 FATHER Allergies: Coded Allergies: NO KNOWN ALLERGIES (Unverified , 11/21/13) Home Meds Reported Medications Amlodipine Besylate (Amlodipine Besylate) 5 Mg Tab, 5 MG PO DAILY, MG 10/23/24 Furosemide (Furosemide) 20 Mg Tab, 20 MG PO DAILY, TAB 10/23/24 Albuterol Sulfate (Albuterol Sulfate Hfa) 108 Mcg/Act Aer, 1 PUFF IN Q4H PRN for SHORTNESS OF BREATH, AER 10/23/24 Tiotropium [place] Monohydrate (Spiriva Respimat) 2.5 Mcg/Act Spr, 1 PUFF IN DAILY, SPRAY 10/23/24 Nicotine (Nicotine Transdermal Syst) 7 Mg/24 Hr Dis, 1 PATCH TD DAILY 10/22/24 Clopidogrel Bisulfate (CLOPIDOGREL) 75 Mg Tab, 1 TAB PO DAILY 10/22/24 Aspirin (Aspirin Low Dose) 81 Mg Tab, 1 TAB PO DAILY 10/22/24 Atorvastatin Calcium (ATORVASTATIN CALCIUM) 40 Mg Tab, 1 TAB PO DAILY 10/22/24 Metoprolol Tartrate (Lopressor) 25 Mg Tb, 1 TAB PO BID 10/22/24 Current Medications Current Medications Medications (Trade) Dose Ordered Sig/Diallo Route PRN Reason Start Time Stop Time Status Last Admin Methylprednisolone Sodium Succinate (Solu Medrol) 40 mg Q12H IV 10/23/24 02:00 10/23/24 13:31 Clopidogrel Bisulfate (Plavix) 75 mg DAILY PO 10/23/24 10:00 Aspirin 81 mg DAILY PO 10/23/24 10:00 Sodium Chloride 1,000 ml @ 75 mls/hr [id number] IV 10/23/24 10:00 10/23/24 23:19 10/23/24 11:40 Vital Signs Vital Signs Date Time Temp Pulse Resp B/P (MAP) Pulse Ox O2 Delivery O2 Flow Rate FiO2 10/23/24 23:00 66 20 93/47 (62) 100 10/23/24 22:38 30 10/23/24 20:00 96.7 96.7 10/23/24 20:00 Mechanical Ventilator+ 10/22/24 07:21 60 Physical Exam Gen.: Patient lying in bed in medical ICU. Sedated, intubated on mechanical ventilator. Head: Normocephalic, atraumatic. Eyes: PERRLA. Ears: Normal external anatomy. Throat: Endotracheal tube and orogastric tube in place. Neck: Supple, trachea midline. Chest: Transmitted breath sounds bilaterally. Decreased air entry bilaterally. No wheezing. Bibasilar crackles. Cardiovascular: Positive S1, positive S2. Regular rate and rhythm. Abdomen: Positive bowel sounds in all 4 quadrants. Soft, nontender, nondistended. : Bills in place. Normal external genitalia. Rectal: Deferred. Skin: Warm, dry. Intact. Extremities: 2+ radial pulses bilaterally. No lower extremity edema. Neuro: Sedated. Labs/Diagnostic Data Labs Test 10/23/24 06:20 10/23/24 03:11 10/22/24 15:55 10/22/24 15:07 Range/Units Blood Gas Specimen Type Arterial Blood Gas Sample Site Left radial Blood Gas Patient Temperature 37.0 Arterial Blood Date Drawn Arterial Blood pH 7.371 7.350-7.450 Arterial Blood Partial Pressure CO2 48.4 H 35.0-48.0 mmHg Arterial Blood Partial Pressure O2 83.4 83.0-108.0 mmHg Arterial Blood HCO3 27.4 21.0-28.0 mmol/L Arterial Blood Oxygen Saturation 95.1 94.0-98.0 % Arterial Blood Base Excess 1.4 -2.0-3.0 mmol/L Arterial Blood Oxyhemoglobin 94.5 94.0-98.0 % Arterial Blood Carboxyhemoglobin 0.2 L 0.5-1.5 % Arterial Blood Methemoglobin 0.4 0.0-1.5 % Javad Test Modified Blood Gas Total Hemoglobin 15.30 13.5-17.5 g/dL Blood Gas Set Respiration Rate 20.0 Blood Gas Modality Vent - ac FiO2 % 30.0 Blood Gas Tidal Volume 550.0 Blood Gas PEEP or CPAP 5.0 White Blood Count 10.9 H 4.4-10.8 10^3/uL Red Blood Count 4.56 4.5-5.90 10^6/uL Hemoglobin 14.1 13.5-17.5 g/dL Hematocrit 41.5 41.0-53.0 % Mean Corpuscular Volume 91.1 80.0-100.0 fL Mean Corpuscular Hemoglobin 30.9 28.0-32.0 pg Mean Corpuscular Hemoglobin Concent 33.9 32.0-36.0 g/dL Red Cell Distribution Width 14.0 11.8-14.3 % Platelet Count 270 140-450 10^3/uL Mean Platelet Volume 7.8 6.9-10.8 fL Neutrophils (%) (Auto) 88.1 H 37.0-80.0 % Lymphocytes (%) (Auto) 5.4 L 10.0-50.0 % Monocytes (%) (Auto) 6.2 0.0-12.0 % Eosinophils (%) (Auto) 0.2 0.0-7.0 % Basophils (%) (Auto) 0.1 0.0-2.0 % Neutrophils # (Auto) 9.6 H 1.6-8.6 10 ^3/uL Lymphocytes # (Auto) 0.6 0.4-5.4 10 ^3/uL Monocytes # (Auto) 0.7 0-1.3 10 ^3/uL Eosinophils # (Auto) 0 0-0.8 10 ^3/uL Basophils # (Auto) 0 0-0.2 10 ^3/uL Nucleated Red Blood Cells 0.1 % Sodium Level 136 136-145 mmol/L Potassium Level 4.2 3.5-5.1 mmol/L Chloride Level 102 98-107 mmol/L Carbon Dioxide Level 25 20-31 mmol/L Anion Gap 9 5-15 Blood Urea Nitrogen 21 9-23 mg/dL Creatinine 1.34 H 0.700-1.30 mg/dL Glomerular Filtration Rate Calc 56 >90 mL/min BUN/Creatinine Ratio 15.7 10.0-20.0 Serum Glucose 170 H 74-106 mg/dL Calcium Level 8.9 8.7-10.4 mg/dL Total Bilirubin 0.3 0.2-1.0 mg/dL Aspartate Amino Transferase (AST) 42 H 13-40 U/L Alanine Aminotransferase (ALT) 42 H 7-40 U/L Alkaline Phosphatase 69 46-116 U/L Total Protein 5.7 5.7-8.2 g/dL Albumin 3.3 3.2-4.8 g/dL Lactic Acid Level 1.2 0.4-2.0 mmol/L Troponin I High Sensitivity 2020 *H </=54 ng/L Test 10/22/24 07:10 10/22/24 06:37 10/22/24 04:22 10/22/24 04:04 Range/Units Triglycerides Level 90 < 150 mg/dL Cholesterol Level 117 < 200 mg/dL LDL Cholesterol 64 < 100 mg/dL HDL Cholesterol 38 L 40-59 mg/dL Thyroid Stimulating Hormone (TSH) 2.77 0.55-4.78 uIU/mL Influenza Type A Antigen Negative Negative Influenza Type B Antigen Negative Negative SARS-CoV-2 Antigen (Rapid) Negative NEGATIVE Blood Gas Critical Value Read Back Yes Blood Gas Notified Whom Md geri martinez Blood Gas Notified Time [id number] Blood Gas Notified By Rt andrew reaves Urine Opiates Screen Neg NEGATIVE Urine Fentanyl Screen Neg NEGATIVE Urine Barbiturates Screen Neg NEGATIVE Urine Phencyclidine Screen Neg NEGATIVE Urine Amphetamines Screen Neg NEGATIVE Urine Benzodiazepines Screen Neg NEGATIVE Urine Cocaine Screen Neg NEGATIVE Urine Cannabinoids Screen Neg NEGATIVE Test 10/22/24 03:50 10/22/24 03:44 Range/Units B-Type Natriuretic Peptide 3521.35 0-100 pg/mL POC Glucose 213 H 70-106 mg/dl Microbiology Date/Time Source Procedure Growth Status 10/22/24 23:45 Nose MRSA Screen - Final Complete 10/22/24 04:12 Sputum Gram Stain - Final Resulted 10/22/24 04:12 Sputum Respiratory Culture Pending Resulted 10/22/24 03:50 Blood Blood Culture - Preliminary NO GROWTH AFTER 24 HOURS OF INCUBATION. Resulted Assessment Impression: Acute on chronic hypoxic respiratory failure On mechanical ventilator Acute COPD exacerbation Shock, septic vs. cardiogenic Coronary artery disease, s/p stents x3 Pulmonary cachexia Acute diastolic CHF Nicotine dependence, on NRT Plan: s/p intubation on mechanical ventilator. CXR image and report reviewed. Devices in place. Mild pulmonary congestion. No consolidation. No pneumothorax. ABG reviewed, compensated. On AC mode; RR 20, VT 550, PEEP 5, FiO2 of 30% Titrate FIO2 to keep O2 saturation above 90%. VAP bundle. Daily ABG and CXR while intubated Sedate for ventilator synchrony - On Propofol Fentanyl for analgesia Continue bronchodilators. Pulmicort IV steroids Continue antibiotics. F/u cultures. On pressors for hemodynamic support Levophed 6 mcg/min Titrate to keep mean arterial pressure greater than 65 mmHg. Diurese as tolerated w/ Lasix Monitor renal function Monitor electrolytes. Supplement as necessary. Monitor ins and outs. Maintain euvolemia. Tube feeds for nutritional support GI prophylaxis. DVT prophylaxis. Prognosis: Poor given patient's multiple co-morbidities. Condition: Critical Rest of plan per hospitalist and other consultants. A total of 35 minutes of critical care time was spent reviewing the patient record, examining the patient, making a diagnostic and therapeutic plan, discussing this plan with the medical personnel, following up on diagnostic studies and following the patient for clinical stability excluding any and all procedures. At least 50% of this time was spent in direct, [id number] contact. Thank you, WILIAM Mclean, for allowing me to participate in this patient's care. Further recommendations will depend on the patient's clinical course. Please do not hesitate to contact me if you have any questions or concerns. This medical document was created using an electronic medical record system with [employer] computerized dictation system. Although these documentations are being carefully reviewed, there may still be some phonetic and typographical changes. The errors are purely typographical, due to imperfection on the software program, and do not reflect any compromise in the patient's medical care. Plan discussed with: Other (LING Baeza/WILIAM Mclean/) MARCO ANTONIO QUIGLEY MD Oct 23, 2024 23:23
[2024-10-24] VITALS (112 sets, daily range): BP systolic 84–134; BP diastolic 45–64; PULSE 64–93; RESP 18–25; TEMP 97.2–99.1; O2SAT 93–100
[2024-10-24 04:15] LABS: Basophils # (auto) 0 10 ^3/uL (0-0.2); Basophils % (auto) 0.1 % (0.0-2.0); Eosinophils # (auto) 0 10 ^3/uL (0-0.8); Hematocrit 38.6 % (41.0-53.0); Hemoglobin 13.5 g/dL (13.5-17.5); Lymphocytes # (auto) 0.3 10 ^3/uL (0.4-5.4); Lymphocytes % (auto) 3.1 % (10.0-50.0); Mean Corpuscular Hemoglobin 31.5 pg (28.0-32.0); Monocytes # (auto) 0.7 10 ^3/uL (0-1.3); Monocytes % (auto) 6.3 % (0.0-12.0); Neutrophils # (auto) 9.7 10 ^3/uL (1.6-8.6); Neutrophils % (auto) 90.5 % (37.0-80.0); Platelet Count (auto) 224 10^3/uL (140-450); Red Blood Cells 4.29 10^6/uL (4.5-5.90); White Blood Cell 10.7 10^3/uL (4.4-10.8)
[2024-10-24 04:31] LABS: Alanine Aminotransferase 36 U/L (7-40); Albumin 3.3 g/dL (3.2-4.8); Alkaline Phosphatase 66 U/L (46-116); Anion Gap 6 (5-15); Aspartate Aminotransferase 34 U/L (13-40); BUN/Creatinine Ratio 22.4 (10.0-20.0); Carbon Dioxide 30 mmol/L (20-31); Chloride 103 mmol/L (98-107); Magnesium 2.2 mg/dL (1.6-2.6); Phosphorus 4.7 mg/dL (2.4-5.1); Potassium 3.7 mmol/L (3.5-5.1); Sodium 139 mmol/L (136-145)
[2024-10-24 04:37] LABS: Bilirubin, Total 0.3 mg/dL (0.2-1.0); Blood Urea Nitrogen 26 mg/dL (9-23); Calcium 8.7 mg/dL (8.7-10.4); Glucose 132 mg/dL (74-106); Total Protein 5.3 g/dL (5.7-8.2)
--- NOTE | 2024-10-24 05:19 | DVH ---
CHEST RADIOGRAPH Indication: Respiratory Failure Technique: Single frontal view of the chest was obtained Comparison: XY CHEST PORTABLE on DOS: 10/23/24, XY CHEST PORTABLE on DOS: 10/23/24, XY CHEST XRAY 1 VIEW on DOS: 10/23/24 IMPRESSION: Heart appears normal in size. The lungs appear hyperinflated. Support lines and tubes appear unchang ed in position. Similar appearance of interstitial upper lobe prominence and perihilar prominence. No discrete pneumothorax. No significant interval change.
[2024-10-24 06:48] LABS: Base Excess 1.2 mmol/L (-2.0-3.0)
--- NOTE | 2024-10-24 07:40 | DVH ---
CHEST RADIOGRAPH Indication: OGT PLACEMENT Technique: Single frontal view of the chest was obtained COMPARISON: XY CHEST PORTABLE on DOS: 10/24/24, XY CHEST PORTABLE on DOS: 10/23/24, XY CHEST PORTABLE on DOS: 10/23/24, XY CHEST XRAY 1 VIEW on DOS: 10/23/24, XY CHEST PORTABLE on DOS: 10/22/24 FINDINGS: Lines and Tubes: Endotracheal tube, enteric catheter, right central venous catheter in satisfactory p osition. Median sternotomy. Lungs: Mild congestion. COPD. Pleura: No effusion. No pneumothorax. Cardiomediastinal contours: Unremarkable Bones: Unremarkable IMPRESSION: Lines and tubes in satisfactory position. No significant interval change.
--- NOTE | 2024-10-24 09:52 | DVHPN2 ---
Consult Progress Note Subjective Review of Systems: Deferred (Currently intubated and sedated) Objective vital signs Vital Sign Date Time Temp Pulse Resp B/P (MAP) Pulse Ox O2 Delivery O2 Flow Rate FiO2 10/24/24 09:34 70 10/24/24 09:32 30 10/24/24 09:30 98.2 20 109/53 (71) 100 208.8 10/24/24 07:56 Mechanical Ventilator+ 10/22/24 07:21 60 Total Intake and Output 10/23/24 10/23/24 10/24/24 15:00 23:00 07:00 Intake Total 865.498 ml 790.112 ml 279.800 ml Output Total 1050 ml 900 ml Balance 865.498 ml -259.888 ml -620.200 ml medications Current Medications Medications Dose Ordered Sig/Diallo Route Start Time Stop Time Status Last Admin Dose Admin Propofol 100 ml @ 1.566 mls/ hr Q24H IV 10/22/24 04:00 10/24/24 03:32 9.396 MLS/HR Norepinephrine Bitartrate 250 ml @ 3.75 mls/hr Q24H IV 10/22/24 05:45 10/23/24 12:24 11.25 MLS/HR Ondansetron HCl 4 mg Q4HP PRN IV 10/22/24 07:45 Acetaminophen 650 mg Q6HP PRN PO 10/22/24 07:45 Nitroglycerin 0.4 mg Q5MINP PRN SL 10/22/24 07:45 Morphine Sulfate 2 mg Q30M PRN IV 10/22/24 07:45 Ceftriaxone Sodium 50 ml @ 100 mls/hr DAILY@09 IV 10/22/24 09:00 10/24/24 08:58 100 MLS/HR Azithromycin 250 ml @ 125 mls/hr DAILY IV 10/22/24 10:00 10/24/24 08:59 125 MLS/HR Albuterol 2.5 mg Q4HR NEB 10/22/24 10:00 10/24/24 06:06 2.5 MG Albuterol 2.5 mg Q2HPRN PRN NEB 10/22/24 07:45 Ipratropium [place] 0.5 mg Q4HR NEB 10/22/24 10:00 10/24/24 06:06 0.5 MG Ipratropium [place] 0.5 mg Q2HPRN PRN NEB 10/22/24 07:45 Furosemide 40 mg BIDD IV 10/22/24 18:00 10/24/24 06:14 40 MG Budesonide 0.5 mg BID NEB 10/22/24 22:00 10/23/24 19:02 0.5 MG Methylprednisolone Sodium Succinate 40 mg Q12H IV 10/23/24 02:00 10/24/24 01:58 40 MG Fentanyl Citrate 250 ml @ 2.5 mls/hr Q24H IV 10/22/24 15:00 10/23/24 16:40 7.5 MLS/HR Enteral Nutritional Formula 1,000 ml 30ML/HR GT 10/22/24 15:00 Clopidogrel Bisulfate 75 mg DAILY PO 10/23/24 10:00 10/24/24 08:59 75 MG Aspirin 81 mg DAILY PO 10/23/24 10:00 10/24/24 08:58 81 MG Atorvastatin Calcium 40 mg HS PO 10/22/24 22:00 10/23/24 21:41 40 MG Examination: LUNGS:Abnormal (On vent at 30% FiO2.), CVS:Normal (Telemetry reviewed consistent with sinus rhythm at 70 beats per minute.), CVS:Abnormal (On vasopressor support with Levophed at 8), NEURO:Abnormal (Sedated) laboratory and microbiology Laboratory Tests 10/24/24 03:46 Test 10/24/24 03:46 Range/Units Serum Glucose 132 H 74-106 mg/dL Problem List/Assessment/Plan Problem List/Assessment/Plan Assessment NSTEMI, rule out progressive coronary artery disease Severe coronary artery disease s/p triple vessel CABG in [address]-elevation myocardial infarction status post PTCA X 1 RICARDO to RCA in 2014 (on Plavix and ASA) Acute on chronic HFrEF, NYHA class IV, newly diagnosed Moderate tricuspid valve regurgitation Hypertension Dyslipidemia Pneumonia COPD Hepatitis B Anxiety Plan/Recommendation Case Discussed with Dr Lovell. Echo reviewed and shows EF 25-30% with global hypokinesis especially of the inferior basal segment of the left ventricle. GDMT held as patient on vasopressor support with Levophed continue titrating. Continues to be intubated, FiO2 30%. S/p coronary angiogram noting occluded SVG to RCA though did show RCA has a normal vessel in proximal mid section with moderate plaquing throughout its mid to distal segments. [place] to LAD patent. SVG to circ can not be found, patient underwent shockwave therapy, angioplasty, and stenting to distal and proximal circumflex. Possible dissection. Continue on anticoagulation therapy with DAPT with aspirin and Plavix. Continue supportive management while of vent. Continue diuresis with Lasix 40 mg IV twice daily. On IV antibiotics. Pulmonology on board. Critical care time spent: 38 minutes This medical document was created using an electronic medical record system with voice recognition software and computerized dictation system. Although this document has been carefully reviewed, there might still be some phonetic and typographical errors. Occasional wrong-word or ``sound-alike substitutions may have occurred due to the inherent limitations of voice recognition software. These areas are purely typographical due to imperfections of the software programs and do not reflect any compromise in the patient's medical care. Please read the chart carefully and recognize, using context, where these substitutions have occurred. Thank you for allowing me to participate in the management of this patient. The treatment plan was discussed with and agreed upon by patient/family including requesting consultants and ordering of imaging/procedures. Plan discussed with: Patient Date of Service: Oct 24, 2024 Billing Provider: MILY PAULSON Common Visit Codes: [id number] INP/OBS CARE(HIGH), 07296-[id number] CARE 30-74 MIN MILY PAULSON Oct 24, 2024 09:52
[2024-10-24] MEDS: POTASSIUM CHL 20MEQ/100ML 100 ML IV ONE (11:18)
--- NOTE | 2024-10-24 12:58 | DVHPN2 ---
Subjective Intubated, and sedated Reviewed: Care Plan, H&P, Labs, Medications, Previous Orders, Radiology, Other (Consultations) Changes from previous H/P or p: No Changes Objective Vitals Vital Signs Date Time Temp Pulse Resp B/P (MAP) Pulse Ox O2 Delivery O2 Flow Rate FiO2 10/24/24 12:00 30 10/24/24 11:40 67 20 112/59 (76) 100 10/24/24 11:00 98.2 208.8 10/24/24 07:56 Mechanical Ventilator+ 10/22/24 07:21 60 Intake/Output Intake and Output 10/24/24 07:00 Intake Total 1935.410 ml Output Total 1950 ml Balance -14.590 ml Intake Oral 30 ml IV Total 1846.410 ml Tube Feeding 59 ml Output Urine Total 1950 ml General Appearance: Other (Intubated, and sedated) HEENT: Atraumatic Lungs: Other (MV sounds) Cardiovascular: Regular rate, Normal S1, Normal S2 Abdomen: Normal bowel sounds, Soft Genitourinary: Other (Bills's) Neuro: Other (Sedated) Psych/Mental Status: Other (Sedated) Medications Current Medications Medications Dose Ordered Sig/Diallo Route Start Time Stop Time Status Last Admin Dose Admin Propofol 100 ml @ 1.566 mls/ hr Q24H IV 10/22/24 04:00 10/24/24 09:40 12.528 MLS/HR Norepinephrine Bitartrate 250 ml @ 3.75 mls/hr Q24H IV 10/22/24 05:45 10/23/24 12:24 11.25 MLS/HR Ondansetron HCl 4 mg Q4HP PRN IV 10/22/24 07:45 Acetaminophen 650 mg Q6HP PRN PO 10/22/24 07:45 Nitroglycerin 0.4 mg Q5MINP PRN SL 10/22/24 07:45 Morphine Sulfate 2 mg Q30M PRN IV 10/22/24 07:45 Ceftriaxone Sodium 50 ml @ 100 mls/hr DAILY@09 IV 10/22/24 09:00 10/24/24 08:58 100 MLS/HR Azithromycin 250 ml @ 125 mls/hr DAILY IV 10/22/24 10:00 10/24/24 08:59 125 MLS/HR Albuterol 2.5 mg Q4HR NEB 10/22/24 10:00 10/24/24 10:05 2.5 MG Albuterol 2.5 mg Q2HPRN PRN NEB 10/22/24 07:45 Ipratropium [place] 0.5 mg Q4HR NEB 10/22/24 10:00 10/24/24 10:05 0.5 MG Ipratropium [place] 0.5 mg Q2HPRN PRN NEB 10/22/24 07:45 Furosemide 40 mg BIDD IV 10/22/24 18:00 10/24/24 06:14 40 MG Budesonide 0.5 mg BID NEB 10/22/24 22:00 10/24/24 10:05 0.5 MG Methylprednisolone Sodium Succinate 40 mg Q12H IV 10/23/24 02:00 10/24/24 01:58 40 MG Fentanyl Citrate 250 ml @ 2.5 mls/hr Q24H IV 10/22/24 15:00 10/23/24 16:40 7.5 MLS/HR Enteral Nutritional Formula 1,000 ml 30ML/HR GT 10/22/24 15:00 Clopidogrel Bisulfate 75 mg DAILY PO 10/23/24 10:00 10/24/24 08:59 75 MG Aspirin 81 mg DAILY PO 10/23/24 10:00 10/24/24 08:58 81 MG Atorvastatin Calcium 40 mg HS PO 10/22/24 22:00 10/23/24 21:41 40 MG Enteral Nutritional Formula 1,000 ml DAILY NG 10/25/24 10:00 Laboratory Results Laboratory Tests 10/24/24 03:46 Chemistry Test 10/24/24 03:46 Albumin 3.3 g/dL (3.2-4.8) Calcium Level 8.7 mg/dL (8.7-10.4) Magnesium Level 2.2 mg/dL (1.6-2.6) Phosphorus Level 4.7 mg/dL (2.4-5.1) Total Protein 5.3 g/dL (5.7-8.2) L LFT Test 10/24/24 03:46 Alanine Aminotransferase (ALT) 36 U/L (7-40) Alkaline Phosphatase 66 U/L (46-116) Aspartate Amino Transferase (AST) 34 U/L (13-40) Total Bilirubin 0.3 mg/dL (0.2-1.0) Blood Gas Results Test 10/24/24 06:36 Arterial Blood pH 7.393 (7.350-7.450) FiO2 % 30.0 Microbiology Microbiology Date/Time Source Procedure Growth Status 10/22/24 23:45 Nose MRSA Screen - Final Complete 10/22/24 04:12 Sputum Gram Stain - Final Resulted 10/22/24 04:12 Sputum Respiratory Culture Pending Resulted 10/22/24 03:50 Blood Blood Culture - Preliminary NO GROWTH AFTER 48 HOURS OF INCUBATION. Resulted Labs and/or images reviewed: Labs reviewed by me, Image(s) reviewed by me Assessment/Plan Assessment/Plan Covering Gio Mclean NP: #Acute metabolic/toxic encephalopathy in the setting of shock #Acute on chronic hypoxic and hypercarbic respiratory failure due to Haemophilus influenzae pneumonia #COPD with exacerbation #Haemophilus influenzae pneumonia #NSTEMI, type 1 secondary to circumflex artery #CAD s/p CABG and stent placement #Pulmonary cachexia #Multi-factorial shock; septic with lactic acidosis and cardiogenic #FRED due to VMN in the setting of shock #Acute diastolic heart failure Pulmonology, and cardiology are following Continue broad-spectrum IV antibiotics Continue oxygen therapy via MV as indicated Continue IV vasopressors as needed Monitor electrolytes closely and replace/correct as needed Avoid nephrotoxic agents Reviewed available cultures, labs, ABGs, and imaging studies including CXR Continue close monitoring Goals of care discussed with the patient's for 20 minutes; full code. 120 minutes of critical care time. Late Entry. This medical document was created using an electronic medical record system with computerized dictation system. Although this document has been carefully reviewed, there might still be some phonetic and typographical errors. These areas are purely typographical due to imperfections of the software programs, and do not reflect any compromise in the patient's medical care. Plan discussed with: Spouse, Other (Nurse) My Orders Orders - BETSY SMITH MD Procedure Category Date Status Time Potassium Chl PHA 10/24/24 In Process 20meq/100ml 11:00 Date of Service: Oct 24, 2024 Billing Provider: BETSY SMITH MD Common Visit Codes: 25471-[id number] CARE 30-74 MIN (120 minutes), [id number] CARE-EACH +30MIN Secondary Visit Codes: [id number] CARE PLAN 30 MINUTES (20 minutes) BETSY SMITH MD Oct 24, 2024 12:58
--- NOTE | 2024-10-24 22:34 | DVHPN2 ---
Progress Note - Dictate Date Seen: Oct 24, 2024 Medical Necessity Reason Pt with a Central, PICC or Fol: Yes The following are medically ne: Garcia Catheter Reason for garcia catheter: Strict I&O Subjective Patient seen and examined at bedside. Sedated, intubated on mechanical ventilator. Overnight events reviewed. vital signs Vital Sign Date Time Temp Pulse Resp B/P (MAP) Pulse Ox O2 Delivery O2 Flow Rate FiO2 10/24/24 22:00 30 10/24/24 22:00 70 10/24/24 22:00 98.8 20 116/59 (78) 100 209.8 10/24/24 20:00 Mechanical Ventilator+ 10/22/24 07:21 60 Total Intake and Output 10/23/24 10/23/24 10/24/24 15:00 23:00 07:00 Intake Total 865.498 ml 790.112 ml 279.800 ml Output Total 1050 ml 900 ml Balance 865.498 ml -259.888 ml -620.200 ml medications Current Medications Medications Dose Ordered Sig/Dialol Route Start Time Stop Time Status Last Admin Dose Admin Propofol 100 ml @ 1.566 mls/ hr Q24H IV 10/22/24 04:00 10/24/24 17:14 12.528 MLS/HR Norepinephrine Bitartrate 250 ml @ 3.75 mls/hr Q24H IV 10/22/24 05:45 10/23/24 12:24 11.25 MLS/HR Ondansetron HCl 4 mg Q4HP PRN IV 10/22/24 07:45 Acetaminophen 650 mg Q6HP PRN PO 10/22/24 07:45 Nitroglycerin 0.4 mg Q5MINP PRN SL 10/22/24 07:45 Morphine Sulfate 2 mg Q30M PRN IV 10/22/24 07:45 Ceftriaxone Sodium 50 ml @ 100 mls/hr DAILY@09 IV 10/22/24 09:00 10/24/24 08:58 100 MLS/HR Azithromycin 250 ml @ 125 mls/hr DAILY IV 10/22/24 10:00 10/24/24 08:59 125 MLS/HR Albuterol 2.5 mg Q4HR NEB 10/22/24 10:00 10/24/24 21:36 2.5 MG Albuterol 2.5 mg Q2HPRN PRN NEB 10/22/24 07:45 Ipratropium [place] 0.5 mg Q4HR NEB 10/22/24 10:00 10/24/24 21:36 0.5 MG Ipratropium [place] 0.5 mg Q2HPRN PRN NEB 10/22/24 07:45 Furosemide 40 mg BIDD IV 10/22/24 18:00 10/24/24 17:15 40 MG Budesonide 0.5 mg BID NEB 10/22/24 22:00 10/24/24 21:36 0.5 MG Methylprednisolone Sodium Succinate 40 mg Q12H IV 10/23/24 02:00 10/24/24 14:17 40 MG Fentanyl Citrate 250 ml @ 2.5 mls/hr Q24H IV 10/22/24 15:00 10/23/24 16:40 7.5 MLS/HR Enteral Nutritional Formula 1,000 ml 30ML/HR GT 10/22/24 15:00 Clopidogrel Bisulfate 75 mg DAILY PO 10/23/24 10:00 10/24/24 08:59 75 MG Aspirin 81 mg DAILY PO 10/23/24 10:00 10/24/24 08:58 81 MG Atorvastatin Calcium 40 mg HS PO 10/22/24 22:00 10/24/24 22:11 40 MG Enteral Nutritional Formula 1,000 ml DAILY NG 10/25/24 10:00 Dexmedetomidine HCl 400 mcg/ Dextrose 100 ml @ 3.45 mls/hr Q24H IV 10/24/24 14:45 objective Gen.: Patient lying in bed in medical ICU. Sedated, intubated on mechanical ventilator. Head: Normocephalic, atraumatic. Eyes: PERRLA. Ears: Normal external anatomy. Throat: Endotracheal tube and orogastric tube in place. Neck: Supple, trachea midline. Chest: Transmitted breath sounds bilaterally. Decreased air entry bilaterally. No wheezing. Bibasilar crackles. Cardiovascular: Positive S1, positive S2. Regular rate and rhythm. Abdomen: Positive bowel sounds in all 4 quadrants. Soft, nontender, nondistended. : Garcia in place. Normal external genitalia. Rectal: Deferred. Skin: Warm, dry. Intact. Extremities: 2+ radial pulses bilaterally. No lower extremity edema. Neuro: Sedated. laboratory and microbiology Laboratory Tests 10/24/24 03:46 Test 10/24/24 03:46 Range/Units Serum Glucose 132 H 74-106 mg/dL Assessment/Plan Impression: Acute on chronic hypoxic respiratory failure On mechanical ventilator Acute COPD exacerbation Shock, septic vs. cardiogenic Coronary artery disease, s/p stents x3 Pulmonary cachexia Acute diastolic CHF Nicotine dependence, on NRT Events: Remains on vent support Sedated on Propofol, Fentanyl On pressors for hemodynamic support Levophed 4 mcg/min Titrate to keep mean arterial pressure greater than 65 mmHg. Improved pressor requirements ABG reviewed, compensated. CXR reviewed, demonstrates mild pulmonary congestion, COPD. Continue antibiotics Follow up cardiology recs Tube feeds for nutritional support SBT/CATHY - CPAP when stable from cardiac standpoint. Labs and imaging reviewed. Rest of plan as noted below. Plan: s/p intubation on mechanical ventilator. On AC mode; RR 20, VT 550, PEEP 5, FiO2 of 30% Titrate FIO2 to keep O2 saturation above 90%. VAP bundle. Daily ABG and CXR while intubated Sedate for ventilator synchrony - On Propofol Fentanyl for analgesia Continue bronchodilators. Pulmicort IV steroids Continue antibiotics. F/u cultures. On pressors for hemodynamic support Titrate to keep mean arterial pressure greater than 65 mmHg. Diurese as tolerated w/ Lasix Monitor renal function Monitor electrolytes. Supplement as necessary. Monitor ins and outs. Maintain euvolemia. Tube feeds for nutritional support GI prophylaxis. DVT prophylaxis. Prognosis: Poor given patient's multiple co-morbidities. Condition: Critical Rest of plan per hospitalist and other consultants. A total of 35 minutes of critical care time was spent reviewing the patient record, examining the patient, making a diagnostic and therapeutic plan, discussing this plan with the medical personnel, following up on diagnostic studies and following the patient for clinical stability excluding any and all procedures. At least 50% of this time was spent in direct, [id number] contact. Thank you, WILIAM Mclean, for allowing me to participate in this patient's care. Further recommendations will depend on the patient's clinical course. Please do not hesitate to contact me if you have any questions or concerns. This medical document was created using an electronic medical record system with [employer] system. Although these documentations are being carefully reviewed, there may still be some phonetic and typographical changes. The errors are purely typographical, due to imperfection on the software program, and do not reflect any compromise in the patient's medical care. Dietary Evaluation Review Recommendations by RD: Increase Calorie Intake Comments: 1. Increase TF to goal rate of 55 mL/hr as tolerated. Goal rate will provide 1,832 kcals (including propofol) 73 g protein, and 1581 mL H2O (including flushes) per 24 hours. Goal rate will meet ~ 97% daily estimated energy needs and 100% daily estimated protein needs 2. Flush wih 200 mL H20 Q6 2. Advance patient diet when medically feasible to cardiac diet, pending H[employer]KE OPERATOR approval 3. Continue to monitor TF tolerance, weight, labs, and skin integrity Expected Outcomes/Goals: 1) labs to improve 2) diet to advance 3) f/u in 2-3 days Plan discussed with: Other (RN) Critical Care Time(min): 35 MARCO ANTONIO QUIGLEY MD Oct 24, 2024 22:34
--- NOTE | 2024-10-24 23:13 | DVHPN2 ---
Consult Progress Note Subjective Review of Systems: Deferred (Currently intubated and sedated ) Other Systems: Patient was seen and evaluated in follow up in the ICU, as I am covering for cardiology services this weekend. Patient intubated and sedated on ventilator. 30% FiO2. Patient is planned for CPAP trial. BUN 26. Objective vital signs Vital Sign Date Time Temp Pulse Resp B/P (MAP) Pulse Ox O2 Delivery O2 Flow Rate FiO2 10/24/24 22:00 30 10/24/24 22:00 70 10/24/24 22:00 98.8 20 116/59 (78) 100 209.8 10/24/24 20:00 Mechanical Ventilator+ 10/22/24 07:21 60 Total Intake and Output 10/23/24 10/23/24 10/24/24 15:00 23:00 07:00 Intake Total 865.498 ml 790.112 ml 279.800 ml Output Total 1050 ml 900 ml Balance 865.498 ml -259.888 ml -620.200 ml medications Current Medications Medications Dose Ordered Sig/Diallo Route Start Time Stop Time Status Last Admin Dose Admin Propofol 100 ml @ 1.566 mls/ hr Q24H IV 10/22/24 04:00 10/24/24 17:14 12.528 MLS/HR Norepinephrine Bitartrate 250 ml @ 3.75 mls/hr Q24H IV 10/22/24 05:45 10/23/24 12:24 11.25 MLS/HR Ondansetron HCl 4 mg Q4HP PRN IV 10/22/24 07:45 Acetaminophen 650 mg Q6HP PRN PO 10/22/24 07:45 Nitroglycerin 0.4 mg Q5MINP PRN SL 10/22/24 07:45 Morphine Sulfate 2 mg Q30M PRN IV 10/22/24 07:45 Ceftriaxone Sodium 50 ml @ 100 mls/hr DAILY@09 IV 10/22/24 09:00 10/24/24 08:58 100 MLS/HR Azithromycin 250 ml @ 125 mls/hr DAILY IV 10/22/24 10:00 10/24/24 08:59 125 MLS/HR Albuterol 2.5 mg Q4HR NEB 10/22/24 10:00 10/24/24 21:36 2.5 MG Albuterol 2.5 mg Q2HPRN PRN NEB 10/22/24 07:45 Ipratropium [place] 0.5 mg Q4HR NEB 10/22/24 10:00 10/24/24 21:36 0.5 MG Ipratropium [place] 0.5 mg Q2HPRN PRN NEB 10/22/24 07:45 Furosemide 40 mg BIDD IV 10/22/24 18:00 10/24/24 17:15 40 MG Budesonide 0.5 mg BID NEB 10/22/24 22:00 10/24/24 21:36 0.5 MG Methylprednisolone Sodium Succinate 40 mg Q12H IV 10/23/24 02:00 10/24/24 14:17 40 MG Fentanyl Citrate 250 ml @ 2.5 mls/hr Q24H IV 10/22/24 15:00 10/23/24 16:40 7.5 MLS/HR Enteral Nutritional Formula 1,000 ml 30ML/HR GT 10/22/24 15:00 Clopidogrel Bisulfate 75 mg DAILY PO 10/23/24 10:00 10/24/24 08:59 75 MG Aspirin 81 mg DAILY PO 10/23/24 10:00 10/24/24 08:58 81 MG Atorvastatin Calcium 40 mg HS PO 10/22/24 22:00 10/24/24 22:11 40 MG Enteral Nutritional Formula 1,000 ml DAILY NG 10/25/24 10:00 Dexmedetomidine HCl 400 mcg/ Dextrose 100 ml @ 3.45 mls/hr Q24H IV 10/24/24 14:45 Examination: GENERAL:Abnormal (intubated on vent), HEENT:Normal, LUNGS:Abnormal (decreased breath sounds ), ABDOMEN:Normal, NEURO:Abnormal (sedated ) laboratory and microbiology Laboratory Tests 10/24/24 03:46 Test 10/24/24 03:46 Range/Units Serum Glucose 132 H 74-106 mg/dL Problem List/Assessment/Plan Problem List/Assessment/Plan Assessment NSTEMI, rule out progressive coronary artery disease. Severe coronary artery disease s/p triple vessel CABG in 2013. HX of ST-elevation myocardial infarction status post PTCA X 1 RICARDO to RCA in 2014 (on Plavix and ASA). Acute on chronic HFrEF, NYHA class IV, newly diagnosed. Moderate tricuspid valve regurgitation. Hypertension. Dyslipidemia. Pneumonia. COPD. Hepatitis B. Anxiety. Plan/Recommendation Continued all current supportive medical care. Patient has been seen by Rafat Adams NP on my behalf, him and I discussed the plan with the patient. Echo reviewed and shows EF 25-30% with global hypokinesis especially of the inferior basal segment of the left ventricle. GDMT held as patient on vasopressor support with Levophed continue titrating. Continues to be intubated, FiO2 30%. S/p coronary angiogram noting occluded SVG to RCA though did show RCA has a normal vessel in proximal mid section with moderate plaquing throughout its mid to distal segments. [place] to LAD patent. SVG to circ can not be found, patient underwent shockwave therapy, angioplasty, and stenting to distal and proximal circumflex. Possible dissection. Continue on anticoagulation therapy with DAPT with aspirin and Plavix. Continue supportive management while of vent. Continue diuresis with Lasix 40 mg IV twice daily. On IV antibiotics. Pulmonology on board. Additional plan as per the hospital course. Plan discussed with: Other Dietary Evaluation Review Recommendations by RD: Increase Calorie Intake Comments: 1. Increase TF to goal rate of 55 mL/hr as tolerated. Goal rate will provide 1,832 kcals (including propofol) 73 g protein, and 1581 mL H2O (including flushes) per 24 hours. Goal rate will meet ~ 97% daily estimated energy needs and 100% daily estimated protein needs 2. Flush wih 200 mL H20 Q6 2. Advance patient diet when medically feasible to cardiac diet, pending KLYSTR[employer] TUBE TESTER approval 3. Continue to monitor TF tolerance, weight, labs, and skin integrity Expected Outcomes/Goals: 1) labs to improve 2) diet to advance 3) f/u in 2-3 days Date of Service: Oct 24, 2024 Billing Provider: KELSI MIGUEL MD Cardiology Common Codes: [id number] HOSP CARE(High, [id number] CARE 30-74 MIN KELSI MIGUEL MD Oct 24, 2024 22:27
[2024-10-25] VITALS (78 sets, daily range): BP systolic 94–167; BP diastolic 48–91; PULSE 61–99; RESP 10–22; TEMP 97.7–99.1; O2SAT 76–100
[2024-10-25 04:09] LABS: Basophils # (auto) 0 10 ^3/uL (0-0.2); Basophils % (auto) 0.1 % (0.0-2.0); Eosinophils # (auto) 0 10 ^3/uL (0-0.8); Hematocrit 36.9 % (41.0-53.0); Hemoglobin 12.6 g/dL (13.5-17.5); Lymphocytes # (auto) 0.6 10 ^3/uL (0.4-5.4); Lymphocytes % (auto) 6.7 % (10.0-50.0); Mean Corpuscular Hemoglobin 30.8 pg (28.0-32.0); Mean Corpuscular Hgb Conc. 34.2 g/dL (32.0-36.0); Mean Corpuscular Volume 90.1 fL (80.0-100.0); Monocytes # (auto) 0.7 10 ^3/uL (0-1.3); Monocytes % (auto) 8.6 % (0.0-12.0); Neutrophils % (auto) 84.6 % (37.0-80.0); Platelet Count (auto) 182 10^3/uL (140-450); White Blood Cell 8.3 10^3/uL (4.4-10.8)
[2024-10-25 04:31] LABS: Alanine Aminotransferase 34 U/L (7-40); Albumin 3.4 g/dL (3.2-4.8); Alkaline Phosphatase 59 U/L (46-116); Anion Gap 7 (5-15); BUN/Creatinine Ratio 23.6 (10.0-20.0); Calcium 8.7 mg/dL (8.7-10.4); Chloride 101 mmol/L (98-107); Magnesium 2.4 mg/dL (1.6-2.6); Potassium 3.8 mmol/L (3.5-5.1); Sodium 140 mmol/L (136-145)
[2024-10-25 04:32] LABS: Total Protein 5.7 g/dL (5.7-8.2)
[2024-10-25 04:35] LABS: Aspartate Aminotransferase 73 U/L (13-40); Bilirubin, Total 0.3 mg/dL (0.2-1.0); Blood Urea Nitrogen 25 mg/dL (9-23); Carbon Dioxide 32 mmol/L (20-31); Glucose 123 mg/dL (74-106)
--- NOTE | 2024-10-25 05:43 | DVH ---
CHEST RADIOGRAPH Indication: Intubated. Technique: Single frontal view of the chest was obtained Comparison: XY CHEST PORTABLE on DOS: 10/24/24, XY CHEST PORTABLE on DOS: 10/24/24, XY CHEST PORTABLE on DOS: 10/23/24 IMPRESSION: Heart appears normal in size. Lungs appear clear without focal airspace opacity, effusion, pneumotho rax. Coarsened interstitial markings. Support lines and tubes appear similar to prior examination.
[2024-10-25] MEDS: Jevity 1.2 Cal/Fiber 1 Liter NG SCH (07:03)
[2024-10-25 09:26] LABS: Base Excess 4.8 mmol/L (-2.0-3.0)
--- NOTE | 2024-10-25 10:02 | DVHPN2 ---
Consult Progress Note Subjective Review of Systems: Deferred (Intubated) Objective vital signs Vital Sign Date Time Temp Pulse Resp B/P (MAP) Pulse Ox O2 Delivery O2 Flow Rate FiO2 10/25/24 09:42 79 10/25/24 09:30 97.9 14 122/65 (84) 100 208.2 10/25/24 09:00 30 10/25/24 08:00 Mechanical Ventilator+ Total Intake and Output 10/24/24 10/24/24 10/25/24 15:00 23:00 07:00 Intake Total 361.762 ml 330.224 ml 510.831 ml Output Total 1150 ml 1150 ml Balance 361.762 ml -819.776 ml -639.169 ml medications Current Medications Medications Dose Ordered Sig/Diallo Route Start Time Stop Time Status Last Admin Dose Admin Propofol 100 ml @ 1.566 mls/ hr Q24H IV 10/22/24 04:00 10/25/24 00:22 12.528 MLS/HR Norepinephrine Bitartrate 250 ml @ 3.75 mls/hr Q24H IV 10/22/24 05:45 10/23/24 12:24 11.25 MLS/HR Ondansetron HCl 4 mg Q4HP PRN IV 10/22/24 07:45 Acetaminophen 650 mg Q6HP PRN PO 10/22/24 07:45 Nitroglycerin 0.4 mg Q5MINP PRN SL 10/22/24 07:45 Morphine Sulfate 2 mg Q30M PRN IV 10/22/24 07:45 Ceftriaxone Sodium 50 ml @ 100 mls/hr DAILY@09 IV 10/22/24 09:00 10/25/24 07:12 100 MLS/HR Azithromycin 250 ml @ 125 mls/hr DAILY IV 10/22/24 10:00 10/25/24 07:12 125 MLS/HR Albuterol 2.5 mg Q4HR NEB 10/22/24 10:00 10/25/24 06:54 2.5 MG Albuterol 2.5 mg Q2HPRN PRN NEB 10/22/24 07:45 Ipratropium [place] 0.5 mg Q4HR NEB 10/22/24 10:00 10/25/24 06:54 0.5 MG Ipratropium [place] 0.5 mg Q2HPRN PRN NEB 10/22/24 07:45 Furosemide 40 mg BIDD IV 10/22/24 18:00 10/25/24 05:49 40 MG Budesonide 0.5 mg BID NEB 10/22/24 22:00 10/25/24 06:54 0.5 MG Methylprednisolone Sodium Succinate 40 mg Q12H IV 10/23/24 02:00 10/25/24 02:18 40 MG Fentanyl Citrate 250 ml @ 2.5 mls/hr Q24H IV 10/22/24 15:00 10/25/24 02:21 5 MLS/HR Enteral Nutritional Formula 1,000 ml 30ML/HR GT 10/22/24 15:00 Clopidogrel Bisulfate 75 mg DAILY PO 10/23/24 10:00 10/25/24 07:17 75 MG Aspirin 81 mg DAILY PO 10/23/24 10:00 10/25/24 07:17 81 MG Atorvastatin Calcium 40 mg HS PO 10/22/24 22:00 10/24/24 22:11 40 MG Enteral Nutritional Formula 1,000 ml DAILY NG 10/25/24 10:00 Dexmedetomidine HCl 400 mcg/ Dextrose 100 ml @ 3.45 mls/hr Q24H IV 10/24/24 14:45 10/25/24 03:24 3.45 MLS/HR Examination: LUNGS:Abnormal (CPAP trial), CVS:Normal (Telemetry consistent with sinus rhythm at 84 beats per minute. No overnight events noted on review.), NEURO:Abnormal (Following commands, CPAP trial) laboratory and microbiology Laboratory Tests 10/25/24 03:34 Test 10/25/24 03:34 Range/Units Serum Glucose 123 H 74-106 mg/dL Problem List/Assessment/Plan Problem List/Assessment/Plan Assessment NSTEMI, rule out progressive coronary artery disease Severe coronary artery disease s/p triple vessel CABG in [address]-elevation myocardial infarction status post PTCA X 1 RICARDO to RCA in 2014 (on Plavix and ASA) Acute on chronic HFrEF, NYHA class IV, newly diagnosed Moderate tricuspid valve regurgitation Hypertension Dyslipidemia Pneumonia COPD Hepatitis B Anxiety Plan/Recommendation Case Discussed with Dr Lovell. Echo reviewed and shows EF 25-30% with global hypokinesis especially of the inferior basal segment of the left ventricle. GDMT held as patient on vasopressor support with Levophed continue titrating. Continues to be intubated, FiO2 30%. S/p coronary angiogram noting occluded SVG to RCA though did show RCA has a normal vessel in proximal mid section with moderate plaquing throughout its mid to distal segments. [place] to LAD patent. SVG to circ can not be found, patient underwent shockwave therapy, angioplasty, and stenting to distal and proximal circumflex. Continue on anticoagulation therapy with DAPT with aspirin and Plavix. Continue supportive management while of vent CPAP trial today. Continue diuresis with Lasix 40 mg IV twice daily. Good urine output overnight, creatinine stable. On IV antibiotics. Pulmonology on board. Critical care time spent: 38 minutes This medical document was created using an electronic medical record system with voice recognition software and computerized dictation system. Although this document has been carefully reviewed, there might still be some phonetic and typographical errors. Occasional wrong-word or ``sound-alike substitutions may have occurred due to the inherent limitations of voice recognition software. These areas are purely typographical due to imperfections of the software programs and do not reflect any compromise in the patient's medical care. Please read the chart carefully and recognize, using context, where these substitutions have occurred. Thank you for allowing me to participate in the management of this patient. The treatment plan was discussed with and agreed upon by patient/family including requesting consultants and ordering of imaging/procedures. Plan discussed with: Patient, Spouse, Other (Bedside RN) Dietary Evaluation Review Recommendations by RD: Increase Calorie Intake Comments: 1. Increase TF to goal rate of 55 mL/hr as tolerated. Goal rate will provide 1,832 kcals (including propofol) 73 g protein, and 1581 mL H2O (including flushes) per 24 hours. Goal rate will meet ~ 97% daily estimated energy needs and 100% daily estimated protein needs 2. Flush wih 200 mL H20 Q6 2. Advance patient diet when medically feasible to cardiac diet, pending CARPET REPAIRER approval 3. Continue to monitor TF tolerance, weight, labs, and skin integrity Expected Outcomes/Goals: 1) labs to improve 2) diet to advance 3) f/u in 2-3 days Date of Service: Oct 25, 2024 Billing Provider: MILY PAULSON Common Visit Codes: [id number] INP/OBS CARE(HIGH), [id number] CARE 30-74 MIN MILY PAULSONP Oct 25, 2024 10:02
--- NOTE | 2024-10-25 21:36 | DVHPN2 ---
Subjective Extubated Reviewed: Care Plan, H&P, Labs, Medications, Previous Orders, Radiology, Other (Consultations) Changes from previous H/P or p: Changes Objective Vitals Vital Signs Date Time Temp Pulse Resp B/P (MAP) Pulse Ox O2 Delivery O2 Flow Rate FiO2 10/25/24 20:00 84 20 95 Mechanical Ventilator+ 30 30 10/25/24 18:18 3 10/25/24 18:00 99.1 167/91 (116) 210.4 Intake/Output Intake and Output 10/25/24 07:00 Intake Total 1202.817 ml Output Total 2300 ml Balance -1097.183 ml Intake Oral 240 ml IV Total 629.817 ml Tube Feeding 333 ml Output Urine Total 2300 ml Stool Total 0 ml General Appearance: Alert, Oriented X3, Cooperative, No acute distress HEENT: Atraumatic Lungs: Other (Decreased air bilaterally) Cardiovascular: Regular rate, Normal S1, Normal S2 Abdomen: Normal bowel sounds, Soft, No tenderness Genitourinary: Other (Bills's) Neuro: Cranial nerves 3-12 NL Psych/Mental Status: Mental status NL Medications Current Medications Medications Dose Ordered Sig/Diallo Route Start Time Stop Time Status Last Admin Dose Admin Ondansetron HCl 4 mg Q4HP PRN IV 10/22/24 07:45 Acetaminophen 650 mg Q6HP PRN PO 10/22/24 07:45 Nitroglycerin 0.4 mg Q5MINP PRN SL 10/22/24 07:45 Morphine Sulfate 2 mg Q30M PRN IV 10/22/24 07:45 Ceftriaxone Sodium 50 ml @ 100 mls/hr DAILY@09 IV 10/22/24 09:00 10/25/24 07:12 100 MLS/HR Azithromycin 250 ml @ 125 mls/hr DAILY IV 10/22/24 10:00 10/25/24 07:12 125 MLS/HR Albuterol 2.5 mg Q4HR NEB 10/22/24 10:00 10/25/24 18:23 2.5 MG Albuterol 2.5 mg Q2HPRN PRN NEB 10/22/24 07:45 Ipratropium [place] 0.5 mg Q4HR NEB 10/22/24 10:00 10/25/24 18:23 0.5 MG Ipratropium [place] 0.5 mg Q2HPRN PRN NEB 10/22/24 07:45 Furosemide 40 mg BIDD IV 10/22/24 18:00 10/25/24 17:50 40 MG Budesonide 0.5 mg BID NEB 10/22/24 22:00 10/25/24 06:54 0.5 MG Methylprednisolone Sodium Succinate 40 mg Q12H IV 10/23/24 02:00 10/25/24 12:54 40 MG Clopidogrel Bisulfate 75 mg DAILY PO 10/23/24 10:00 10/25/24 07:17 75 MG Aspirin 81 mg DAILY PO 10/23/24 10:00 10/25/24 07:17 81 MG Atorvastatin Calcium 40 mg HS PO 10/22/24 22:00 10/24/24 22:11 40 MG Laboratory Results Laboratory Tests 10/25/24 03:34 Chemistry Test 10/25/24 03:34 Albumin 3.4 g/dL (3.2-4.8) Calcium Level 8.7 mg/dL (8.7-10.4) Magnesium Level 2.4 mg/dL (1.6-2.6) Total Protein 5.7 g/dL (5.7-8.2) LFT Test 10/25/24 03:34 Alanine Aminotransferase (ALT) 34 U/L (7-40) Alkaline Phosphatase 59 U/L (46-116) Aspartate Amino Transferase (AST) 73 U/L (13-40) H Total Bilirubin 0.3 mg/dL (0.2-1.0) Blood Gas Results Test 10/25/24 09:02 Arterial Blood pH 7.429 (7.350-7.450) FiO2 % 30.0 Microbiology Microbiology Date/Time Source Procedure Growth Status 10/23/24 00:30 Urine - [place] Urine Culture - Final Complete 10/22/24 23:45 Nose MRSA Screen - Final Complete 10/22/24 04:12 Sputum Gram Stain - Final Complete 10/22/24 04:12 Respiratory Culture - Final Haemophilus influenzae Complete 10/22/24 03:50 Blood Blood Culture - Preliminary NO GROWTH AFTER 72 HOURS OF INCUBATION. Resulted Labs and/or images reviewed: Labs reviewed by me, Image(s) reviewed by me Assessment/Plan Assessment/Plan Covering Gio Mclean NP: #Acute metabolic/toxic encephalopathy in the setting of shock; resolved #Acute on chronic hypoxic and hypercarbic respiratory failure due to Haemophilus influenzae pneumonia #COPD with exacerbation #Haemophilus influenzae pneumonia #NSTEMI, type 1 secondary to circumflex artery #CAD s/p CABG and stent placement #Pulmonary cachexia #Multi-factorial shock; septic with lactic acidosis and cardiogenic #FRED due to VMN in the setting of shock #Acute diastolic heart failure Pulmonology, and cardiology are following Continue broad-spectrum IV antibiotics Continue oxygen therapy via nasal cannula as indicated Restart IV vasopressors as needed Monitor electrolytes closely and replace/correct as needed Avoid nephrotoxic agents Reviewed available cultures, labs, ABGs, and imaging studies including CXR Continue close monitoring 66 minutes of critical care time. Late Entry. This medical document was created using an electronic medical record system with computerized dictation system. Although this document has been carefully reviewed, there might still be some phonetic and typographical errors. These areas are purely typographical due to imperfections of the software programs, and do not reflect any compromise in the patient's medical care. Plan discussed with: Patient, Spouse, Other (Nurse) My Orders Orders - BETSY SMITH MD Procedure Category Date Status Time Abg W/ Co-Ox RT 10/25/24 Logged 08:50 * Swallow Request ST 10/25/24 Transmitted 17:00 Pt Request For Service PT 10/25/24 Logged 13:09 Magnesium LAB 10/26/24 Verified 04:00 Transfer Orders XFER 10/25/24 Transmitted 18:38 * Swallow Request ST 10/26/24 Transmitted 09:00 Date of Service: Oct 25, 2024 Billing Provider: BETSY SMITH MD Common Visit Codes: [id number] CARE 30-74 MIN (66 minutes) BETSY SMITH MD Oct 25, 2024 21:36
--- NOTE | 2024-10-25 21:45 | DVHPN2 ---
Progress Note - Dictate Date Seen: Oct 25, 2024 Medical Necessity Reason Pt with a Central, PICC or Fol: Yes The following are medically ne: Garcia Catheter Reason for garcia catheter: Strict I&O Subjective Patient seen and examined at bedside. S/p extubation, on supplemental oxygen Overnight events reviewed. vital signs Vital Sign Date Time Temp Pulse Resp B/P (MAP) Pulse Ox O2 Delivery O2 Flow Rate FiO2 10/25/24 20:00 84 20 95 Mechanical Ventilator+ 30 30 10/25/24 18:18 3 10/25/24 18:00 99.1 167/91 (116) 210.4 Total Intake and Output 10/24/24 10/24/24 10/25/24 15:00 23:00 07:00 Intake Total 361.762 ml 330.224 ml 510.831 ml Output Total 1150 ml 1150 ml Balance 361.762 ml -819.776 ml -639.169 ml medications Current Medications Medications Dose Ordered Sig/Diallo Route Start Time Stop Time Status Last Admin Dose Admin Ondansetron HCl 4 mg Q4HP PRN IV 10/22/24 07:45 Acetaminophen 650 mg Q6HP PRN PO 10/22/24 07:45 Nitroglycerin 0.4 mg Q5MINP PRN SL 10/22/24 07:45 Morphine Sulfate 2 mg Q30M PRN IV 10/22/24 07:45 Ceftriaxone Sodium 50 ml @ 100 mls/hr DAILY@09 IV 10/22/24 09:00 10/25/24 07:12 100 MLS/HR Azithromycin 250 ml @ 125 mls/hr DAILY IV 10/22/24 10:00 10/25/24 07:12 125 MLS/HR Albuterol 2.5 mg Q4HR NEB 10/22/24 10:00 10/25/24 18:23 2.5 MG Albuterol 2.5 mg Q2HPRN PRN NEB 10/22/24 07:45 Ipratropium [place] 0.5 mg Q4HR NEB 10/22/24 10:00 10/25/24 18:23 0.5 MG Ipratropium [place] 0.5 mg Q2HPRN PRN NEB 10/22/24 07:45 Furosemide 40 mg BIDD IV 10/22/24 18:00 10/25/24 17:50 40 MG Budesonide 0.5 mg BID NEB 10/22/24 22:00 10/25/24 06:54 0.5 MG Methylprednisolone Sodium Succinate 40 mg Q12H IV 10/23/24 02:00 10/25/24 12:54 40 MG Clopidogrel Bisulfate 75 mg DAILY PO 10/23/24 10:00 10/25/24 07:17 75 MG Aspirin 81 mg DAILY PO 10/23/24 10:00 10/25/24 07:17 81 MG Atorvastatin Calcium 40 mg HS PO 10/22/24 22:00 10/24/24 22:11 40 MG objective Gen.: Patient lying in bed in no apparent distress. On supplemental oxygen. Head: Normocephalic, atraumatic. Eyes: EOMI/PERRLA. Ears: Normal hearing. Normal anatomy. Neck/trachea: Trachea midline, supple. Nose: Normal external anatomy. Mouth: Moist mucous membranes. Chest: Decreased air entry bilaterally. No wheezing or rhonchi. Cardiovascular: Positive S1, positive S2. Regular rate and rhythm. Abdomen: Positive bowel sounds in all 4 quadrants. Soft, non-tender, non- distended. : Deferred. Rectal: Deferred. Skin: Warm, dry. Intact. Extremities: 2+ radial pulses bilaterally. No lower extremity edema. Neuro: Awake, alert, oriented x3. No gross motor or sensory deficits. Cranial nerves II through XII intact. Gait not assessed. laboratory and microbiology Laboratory Tests 10/25/24 03:34 Test 10/25/24 03:34 Range/Units Serum Glucose 123 H 74-106 mg/dL Assessment/Plan Impression: Acute on chronic hypoxic respiratory failure On mechanical ventilator Acute COPD exacerbation Shock, septic vs. cardiogenic Coronary artery disease, s/p stents x3 Pulmonary cachexia Acute diastolic CHF Nicotine dependence, on NRT Events: Patient tolerated CPAP this AM and was extubated uneventfully Currently on supplemental oxygen, 3 LPM NC Taper O2 as tolerated Off sedation Off pressors, hemodynamically stable Continue antibiotics Incentive spirometry Cardiology recs appreciated Labs and imaging reviewed. Rest of plan as noted below. Plan: S/p extubation On supplemental oxygen Titrate to keep O2 sats above 90%. Off sedation Continue bronchodilators. Pulmicort IV steroids Continue antibiotics. F/u cultures. Pressors as necessary for hemodynamic support Titrate to keep mean arterial pressure greater than 65 mmHg. Diurese as tolerated w/ Lasix Monitor renal function Monitor electrolytes. Supplement as necessary. Monitor ins and outs. Maintain euvolemia. Tube feeds for nutritional support GI prophylaxis. DVT prophylaxis. Prognosis: Guarded given patient's multiple co-morbidities. Condition: Critical Rest of plan per hospitalist and other consultants. A total of 35 minutes of critical care time was spent reviewing the patient record, examining the patient, making a diagnostic and therapeutic plan, discussing this plan with the medical personnel, following up on diagnostic studies and following the patient for clinical stability excluding any and all procedures. At least 50% of this time was spent in direct, [id number] contact. Thank you, WILIAM Mclean, for allowing me to participate in this patient's care. Further recommendations will depend on the patient's clinical course. Please do not hesitate to contact me if you have any questions or concerns. This medical document was created using an electronic medical record system with [employer] dictation system. Although these documentations are being carefully reviewed, there may still be some phonetic and typographical changes. The errors are purely typographical, due to imperfection on the software program, and do not reflect any compromise in the patient's medical care. Dietary Evaluation Review Recommendations by RD: Increase Calorie Intake Comments: 1. Increase TF to goal rate of 55 mL/hr as tolerated. Goal rate will provide 1,832 kcals (including propofol) 73 g protein, and 1581 mL H2O (including flushes) per 24 hours. Goal rate will meet ~ 97% daily estimated energy needs and 100% daily estimated protein needs 2. Flush wih 200 mL H20 Q6 2. Advance patient diet when medically feasible to cardiac diet, pending [employer] approval 3. Continue to monitor TF tolerance, weight, labs, and skin integrity Expected Outcomes/Goals: 1) labs to improve 2) diet to advance 3) f/u in 2-3 days Plan discussed with: Other (LING Valente) Critical Care Time(min): 35 MARCO ANTONIO QUIGLEY MD Oct 25, 2024 21:45
--- NOTE | 2024-10-25 22:38 | DVHPN2 ---
Consult Progress Note Subjective Review of Systems: Deferred Other Systems: Patient was seen and evaluated in follow up in the ICU, as I am covering for Dr. Lovell, cardiology services over the weekend. Patient had successful CPAP trial and was successfully extubated. Patient is on 40 L via mask. CO2 32, BUN 25, AST 73. Chest x-ray shows heart appears normal in size. Lungs appear clear without focal airspace opacity, effusion, pneumothorax. Coarsened interstitial markings. Objective vital signs Vital Sign Date Time Temp Pulse Resp B/P (MAP) Pulse Ox O2 Delivery O2 Flow Rate FiO2 10/25/24 15:00 98.6 80 17 138/73 (94) 99 209.5 10/25/24 14:26 Mask 40.0 10/25/24 14:26 N/A Total Intake and Output 10/24/24 10/24/24 10/25/24 15:00 23:00 07:00 Intake Total 361.762 ml 330.224 ml 510.831 ml Output Total 1150 ml 1150 ml Balance 361.762 ml -819.776 ml -639.169 ml medications Current Medications Medications Dose Ordered Sig/Diallo Route Start Time Stop Time Status Last Admin Dose Admin Propofol 100 ml @ 1.566 mls/ hr Q24H IV 10/22/24 04:00 10/25/24 00:22 12.528 MLS/HR Norepinephrine Bitartrate 250 ml @ 3.75 mls/hr Q24H IV 10/22/24 05:45 10/23/24 12:24 11.25 MLS/HR Ondansetron HCl 4 mg Q4HP PRN IV 10/22/24 07:45 Acetaminophen 650 mg Q6HP PRN PO 10/22/24 07:45 Nitroglycerin 0.4 mg Q5MINP PRN SL 10/22/24 07:45 Morphine Sulfate 2 mg Q30M PRN IV 10/22/24 07:45 Ceftriaxone Sodium 50 ml @ 100 mls/hr DAILY@09 IV 10/22/24 09:00 10/25/24 07:12 100 MLS/HR Azithromycin 250 ml @ 125 mls/hr DAILY IV 10/22/24 10:00 10/25/24 07:12 125 MLS/HR Albuterol 2.5 mg Q4HR NEB 10/22/24 10:00 10/25/24 14:25 2.5 MG Albuterol 2.5 mg Q2HPRN PRN NEB 10/22/24 07:45 Ipratropium [place] 0.5 mg Q4HR NEB 10/22/24 10:00 10/25/24 14:26 0.5 MG Ipratropium [place] 0.5 mg Q2HPRN PRN NEB 10/22/24 07:45 Furosemide 40 mg BIDD IV 10/22/24 18:00 10/25/24 05:49 40 MG Budesonide 0.5 mg BID NEB 10/22/24 22:00 10/25/24 06:54 0.5 MG Methylprednisolone Sodium Succinate 40 mg Q12H IV 10/23/24 02:00 10/25/24 12:54 40 MG Fentanyl Citrate 250 ml @ 2.5 mls/hr Q24H IV 10/22/24 15:00 10/25/24 02:21 5 MLS/HR Enteral Nutritional Formula 1,000 ml 30ML/HR GT 10/22/24 15:00 Clopidogrel Bisulfate 75 mg DAILY PO 10/23/24 10:00 10/25/24 07:17 75 MG Aspirin 81 mg DAILY PO 10/23/24 10:00 10/25/24 07:17 81 MG Atorvastatin Calcium 40 mg HS PO 10/22/24 22:00 10/24/24 22:11 40 MG Enteral Nutritional Formula 1,000 ml DAILY NG 10/25/24 10:00 Dexmedetomidine HCl 400 mcg/ Dextrose 100 ml @ 3.45 mls/hr Q24H IV 10/24/24 14:45 10/25/24 03:24 3.45 MLS/HR Examination: GENERAL:Normal, HEENT:Normal, NECK:Normal, LUNGS:Abnormal (decresed breath sound ), CVS:Normal, ABDOMEN:Normal, SKIN:Normal laboratory and microbiology Laboratory Tests 10/25/24 03:34 Test 10/25/24 03:34 Range/Units Serum Glucose 123 H 74-106 mg/dL Problem List/Assessment/Plan Problem List/Assessment/Plan Assessment NSTEMI, rule out progressive coronary artery disease. Severe coronary artery disease s/p triple vessel CABG in 2013. HX of ST-elevation myocardial infarction status post PTCA X 1 RICARDO to RCA in 2013 (on Plavix and ASA). Acute on chronic HFrEF, NYHA class IV, newly diagnosed. Moderate tricuspid valve regurgitation. Hypertension. Dyslipidemia. Pneumonia. COPD. Hepatitis B. Anxiety. Plan/Recommendation Continued all current supportive medical care. Patient has been seen by Rafat Adams NP on my behalf, him and I discussed the plan with the patient. Echo reviewed and shows EF 25-30% with global hypokinesis especially of the inferior basal segment of the left ventricle. GDMT held as patient on vasopressor support with Levophed continue titrating. S/p coronary angiogram noting occluded SVG to RCA though did show RCA has a normal vessel in proximal mid section with moderate plaquing throughout its mid to distal segments. [place] to LAD patent. SVG to circ can not be found, patient underwent shockwave therapy, angioplasty, and stenting to distal and proximal circumflex. Possible dissection. Continue on anticoagulation therapy with DAPT with aspirin and Plavix. Continue diuresis with Lasix 40 mg IV twice daily. On IV antibiotics. Pulmonology on board. Additional plan as per the hospital course. Plan discussed with: Other Dietary Evaluation Review Recommendations by RD: Increase Calorie Intake Comments: 1. Increase TF to goal rate of 55 mL/hr as tolerated. Goal rate will provide 1,832 kcals (including propofol) 73 g protein, and 1581 mL H2O (including flushes) per 24 hours. Goal rate will meet ~ 97% daily estimated energy needs and 100% daily estimated protein needs 2. Flush wih 200 mL H20 Q6 2. Advance patient diet when medically feasible to cardiac diet, pending [employer] approval 3. Continue to monitor TF tolerance, weight, labs, and skin integrity Expected Outcomes/Goals: 1) labs to improve 2) diet to advance 3) f/u in 2-3 days Date of Service: Oct 25, 2024 Billing Provider: KELSI MIGUEL MD Cardiology Common Codes: [id number] INP/OBS CARE (High), [id number] CARE 30-74 MIN KELSI MIGUEL MD Oct 25, 2024 16:24
[2024-10-26] VITALS (29 sets, daily range): BP systolic 122–153; BP diastolic 63–74; PULSE 74–87; RESP 15–80; TEMP 97.7–99.3; O2SAT 90–100
[2024-10-26 04:58] LABS: Basophils # (auto) 0 10 ^3/uL (0-0.2); Basophils % (auto) 0.1 % (0.0-2.0); Eosinophils # (auto) 0 10 ^3/uL (0-0.8); Eosinophils % (auto) 0.1 % (0.0-7.0); Hematocrit 38.9 % (41.0-53.0); Hemoglobin 13.3 g/dL (13.5-17.5); Lymphocytes # (auto) 0.4 10 ^3/uL (0.4-5.4); Lymphocytes % (auto) 4.5 % (10.0-50.0); Mean Corpuscular Hgb Conc. 34.1 g/dL (32.0-36.0); Mean Corpuscular Volume 90.7 fL (80.0-100.0); Monocytes # (auto) 0.7 10 ^3/uL (0-1.3); Monocytes % (auto) 6.8 % (0.0-12.0); Neutrophils # (auto) 8.6 10 ^3/uL (1.6-8.6); Neutrophils % (auto) 88.5 % (37.0-80.0); Platelet Count (auto) 189 10^3/uL (140-450); Red Blood Cells 4.29 10^6/uL (4.5-5.90); Red Cell Distribution Width 14.3 % (11.8-14.3); White Blood Cell 9.7 10^3/uL (4.4-10.8)
[2024-10-26 05:19] LABS: Albumin 3.6 g/dL (3.2-4.8); Alkaline Phosphatase 60 U/L (46-116); Anion Gap 7 (5-15); BUN/Creatinine Ratio 27.6 (10.0-20.0); Calcium 9.2 mg/dL (8.7-10.4); Chloride 99 mmol/L (98-107); Glucose 100 mg/dL (74-106); Magnesium 2.1 mg/dL (1.6-2.6); Potassium 3.7 mmol/L (3.5-5.1); Sodium 141 mmol/L (136-145); Total Protein 5.9 g/dL (5.7-8.2)
[2024-10-26 05:22] LABS: Alanine Aminotransferase 85 U/L (7-40); Aspartate Aminotransferase 255 U/L (13-40); Blood Urea Nitrogen 24 mg/dL (9-23); Carbon Dioxide 35 mmol/L (20-31)
[2024-10-26 05:35] LABS: Bilirubin, Total 0.4 mg/dL (0.2-1.0)
--- NOTE | 2024-10-26 10:32 | DVHPN2 ---
Subjective Patient chemically sedated Reviewed: Care Plan, H&P, Labs, Medications, Previous Orders, Radiology, Other (Consultations) Changes from previous H/P or p: No Changes General: Per HPI Objective Vitals Vital Signs Date Time Temp Pulse Resp B/P (MAP) Pulse Ox O2 Delivery O2 Flow Rate FiO2 10/26/24 10:14 97.7 78 17 150/72 (98) 93 97.7 10/26/24 08:00 Nasal Cannula* 2 28 Intake/Output Intake and Output 10/26/24 07:00 Intake Total 360.35 ml Output Total 3150 ml Balance -2789.65 ml Intake Oral 50 ml IV Total 310.35 ml Output Urine Total 3150 ml Stool Total 0 ml Exam Patient was assessed in the cardiac catheterization lab. General Appearance: Alert, Oriented X3, Cooperative, No acute distress HEENT: Atraumatic Lungs: Other (Decreased air bilaterally) Cardiovascular: Regular rate, Normal S1, Normal S2 Abdomen: Normal bowel sounds, Soft, No tenderness Genitourinary: Other (Bills's) Neuro: Cranial nerves 3-12 NL Skin: Dry, Intact Psych/Mental Status: Mental status NL, Mood NL Medications Current Medications Medications Dose Ordered Sig/Diallo Route Start Time Stop Time Status Last Admin Dose Admin Ondansetron HCl 4 mg Q4HP PRN IV 10/22/24 07:45 Acetaminophen 650 mg Q6HP PRN PO 10/22/24 07:45 Nitroglycerin 0.4 mg Q5MINP PRN SL 10/22/24 07:45 Morphine Sulfate 2 mg Q30M PRN IV 10/22/24 07:45 Ceftriaxone Sodium 50 ml @ 100 mls/hr DAILY@09 IV 10/22/24 09:00 10/26/24 09:20 100 MLS/HR Albuterol 2.5 mg Q4HR NEB 10/22/24 10:00 10/26/24 06:07 2.5 MG Albuterol 2.5 mg Q2HPRN PRN NEB 10/22/24 07:45 Ipratropium [place] 0.5 mg Q4HR NEB 10/22/24 10:00 10/26/24 06:07 0.5 MG Ipratropium [place] 0.5 mg Q2HPRN PRN NEB 10/22/24 07:45 Budesonide 0.5 mg BID NEB 10/22/24 22:00 10/25/24 22:16 0.5 MG Clopidogrel Bisulfate 75 mg DAILY PO 10/23/24 10:00 10/26/24 09:49 75 MG Aspirin 81 mg DAILY PO 10/23/24 10:00 10/26/24 09:49 81 MG Atorvastatin Calcium 40 mg HS PO 10/22/24 22:00 10/25/24 22:04 40 MG Furosemide 40 mg DAILY IV 10/27/24 10:00 UNV Methylprednisolone Sodium Succinate 40 mg DAILY IV 10/27/24 10:00 UNV Metoprolol Tartrate 25 mg BID PO 10/26/24 10:30 UNV Laboratory Results Laboratory Tests 10/26/24 04:25 Chemistry Test 10/26/24 04:25 Albumin 3.6 g/dL (3.2-4.8) Calcium Level 9.2 mg/dL (8.7-10.4) Magnesium Level 2.1 mg/dL (1.6-2.6) Total Protein 5.9 g/dL (5.7-8.2) LFT Test 10/26/24 04:25 Alanine Aminotransferase (ALT) 85 U/L (7-40) H Alkaline Phosphatase 60 U/L (46-116) Aspartate Amino Transferase (AST) 255 U/L (13-40) H Total Bilirubin 0.4 mg/dL (0.2-1.0) Microbiology Microbiology Date/Time Source Procedure Growth Status 10/23/24 00:30 Urine - [place] Urine Culture - Final Complete 10/22/24 23:45 Nose MRSA Screen - Final Complete 10/22/24 04:12 Sputum Gram Stain - Final Complete 10/22/24 04:12 Respiratory Culture - Final Haemophilus influenzae Complete 10/22/24 03:50 Blood Blood Culture - Preliminary NO GROWTH AFTER 72 HOURS OF INCUBATION. Resulted Labs and/or images reviewed: Labs reviewed by me, Image(s) reviewed by me Assessment/Plan Assessment/Plan Impression: -acute on chronic hypoxic and hypercarbic respiratory failure -COPD with exacerbation -rule out community-acquired pneumonia, probable Gram-positive/Gram-negative etiology -NSTEMI, type 1 secondary to circumflex artery -history of CAD with previous CABG and stent placement -pulmonary cachexia -shock, questionable etiology including sepsis versus cardiogenic -acute diastolic heart failure Plan: Events: Patient is status post PTCA and stent placement. Patient extubated. Pending swallow evaluation. Now hypertensive. -continue dual antiplatelet therapy -start goal-directed medical therapy -decrease IV Lasix to 40 mg daily -patient currently tele status. -continue antibiotic therapy with Rocephin, stop azithromycin -continue bronchodilators -cardiology consultation: Recommendations reviewed -transferred to telemetry status Total time spent with patient discussing and formulating plan of care: 35 minutes. This medical document was created using an electronic medical record system with [employer] dictation system. Although this document has been carefully reviewed, there may still be some phonetic and typographical errors. These areas are purely typographical due to imperfections of the software programs, and do not reflect any compromise in the patient's medical care. Plan discussed with: Patient, Other (RN) My Orders Orders - LAMONT ESCOBAR NP Procedure Category Date Status Time Furosemide Injection PHA 10/27/24 Logged (Lasix Injection) 10:00 Methylprednisolone PHA 10/27/24 Logged Sod Succ (Solu Medrol 10:00 Metoprolol Tartrate PHA 10/26/24 Logged Tablet (Lopressor Ta 10:30 Basic Metabolic Panel LAB 10/27/24 Verified 04:00 Complete Blood Count LAB 10/27/24 Verified 04:00 Date of Service: Oct 26, 2024 Billing Provider: LAMONT ESCOBAR NP Common Visit Codes: [id number] INP/OBS CARE(HIGH) LAMONT ESCOBAR NP Oct 26, 2024 10:31
[2024-10-26] MEDS: METOPROLOL TARTRATE 25 MG TAB PO SCH (12:44)
--- NOTE | 2024-10-26 14:02 | DVHPN2 ---
Consult Progress Note Subjective Other Systems: Patient remains in normal sinus rhythm on monitoring analyst No cardiac complaints Objective vital signs Vital Sign Date Time Temp Pulse Resp B/P (MAP) Pulse Ox O2 Delivery O2 Flow Rate FiO2 10/26/24 13:00 97.8 74 17 150/69 (96) 96 97.8 10/26/24 11:06 Nasal Cannula* 2 N/A Cool Aerosol Total Intake and Output 10/25/24 10/25/24 10/26/24 15:00 23:00 07:00 Intake Total 310.35 ml 0 ml 50 ml Output Total 1400 ml 1750 ml Balance 310.35 ml -1400 ml -1700 ml medications Current Medications Medications Dose Ordered Sig/Diallo Route Start Time Stop Time Status Last Admin Dose Admin Ondansetron HCl 4 mg Q4HP PRN IV 10/22/24 07:45 Acetaminophen 650 mg Q6HP PRN PO 10/22/24 07:45 Nitroglycerin 0.4 mg Q5MINP PRN SL 10/22/24 07:45 Morphine Sulfate 2 mg Q30M PRN IV 10/22/24 07:45 Ceftriaxone Sodium 50 ml @ 100 mls/hr DAILY@09 IV 10/22/24 09:00 10/26/24 09:20 100 MLS/HR Albuterol 2.5 mg Q4HR NEB 10/22/24 10:00 10/26/24 10:29 2.5 MG Albuterol 2.5 mg Q2HPRN PRN NEB 10/22/24 07:45 Ipratropium [place] 0.5 mg Q4HR NEB 10/22/24 10:00 10/26/24 10:30 0.5 MG Ipratropium [place] 0.5 mg Q2HPRN PRN NEB 10/22/24 07:45 Budesonide 0.5 mg BID NEB 10/22/24 22:00 10/26/24 10:29 0.5 MG Clopidogrel Bisulfate 75 mg DAILY PO 10/23/24 10:00 10/26/24 09:49 75 MG Aspirin 81 mg DAILY PO 10/23/24 10:00 10/26/24 09:49 81 MG Atorvastatin Calcium 40 mg HS PO 10/22/24 22:00 10/25/24 22:04 40 MG Furosemide 40 mg DAILY IV 10/27/24 10:00 Methylprednisolone Sodium Succinate 40 mg DAILY IV 10/27/24 10:00 Metoprolol Tartrate 25 mg BID PO 10/26/24 10:30 10/26/24 12:44 25 MG Examination: GENERAL:Normal, LUNGS:Normal, CVS:Normal, NEURO:Normal laboratory and microbiology Laboratory Tests 10/26/24 04:25 Test 10/26/24 04:25 Range/Units Serum Glucose 100 74-106 mg/dL Problem List/Assessment/Plan Problem List/Assessment/Plan NSTEMI, s/p PTCA x 3 RICARDO to circumflex Severe coronary artery disease s/p triple vessel CABG in [address]-elevation myocardial infarction status post PTCA X 1 RICARDO to RCA in 2014 (on Plavix and ASA) Acute on chronic HFrEF, NYHA class IV, newly diagnosed Moderate tricuspid valve regurgitation Hypertension Dyslipidemia Pneumonia COPD Hepatitis B Anxiety Plan/Recommendation (Dr. Lovell): Transthoracic echocardiogram reveals an EF 25-30% with global hypokinesis especially of the inferior basal segment of the left ventricle. We will initiate guideline directed medical therapy for CHF as tolerated by patient, add MRA (spironolactone) with stable potassium level. Patient now extubated and on telemetry floor. Patient denies any cardiac symptoms at time of assessment. Continue dual antiplatelet therapy, lipid-lowering agent, and beta-rolando. Thank you for allowing us to care for this patient. Please call with any questions or concerns. This medical document was created using an electronic medical record system with voice recognition software and computerized dictation system. Although this document has been carefully reviewed, there might still be some phonetic and typographical errors. Occasional wrong-word or ``sound-alike substitutions may have occurred due to the inherent limitations of voice recognition software. These areas are purely typographical due to imperfections of the software programs and do not reflect any compromise in the patient's medical care. Please read the chart carefully and recognize, using context, where these substitutions have occurred. Plan discussed with: Patient, Spouse Dietary Evaluation Review Recommendations by RD: Increase Calorie Intake Comments: 1. Increase TF to goal rate of 55 mL/hr as tolerated. Goal rate will provide 1,832 kcals (including propofol) 73 g protein, and 1581 mL H2O (including flushes) per 24 hours. Goal rate will meet ~ 97% daily estimated energy needs and 100% daily estimated protein needs 2. Flush wih 200 mL H20 Q6 2. Advance patient diet when medically feasible to cardiac diet, pending [employer] approval 3. Continue to monitor TF tolerance, weight, labs, and skin integrity Expected Outcomes/Goals: 1) labs to improve 2) diet to advance 3) f/u in 2-3 days Date of Service: Oct 26, 2024 Billing Provider: NURA CATES Common Visit Codes: [id number] INP/OBS CARE(HIGH) NURA CATES Oct 26, 2024 14:02
[2024-10-26] MEDS: SACUBITRIL-VALSARTAN 24mg/26mg TAB PO SCH (21:25)
[2024-10-27] VITALS (14 sets, daily range): BP systolic 120–150; BP diastolic 62–70; PULSE 62–79; RESP 16–20; TEMP 36.5; O2SAT 89–98
[2024-10-27 07:40] LABS: Basophils # (auto) 0 10 ^3/uL (0-0.2); Basophils % (auto) 0.1 % (0.0-2.0); Eosinophils # (auto) 0.1 10 ^3/uL (0-0.8); Eosinophils % (auto) 0.6 % (0.0-7.0); Hematocrit 47.2 % (41.0-53.0); Hemoglobin 15.6 g/dL (13.5-17.5); Lymphocytes # (auto) 0.7 10 ^3/uL (0.4-5.4); Lymphocytes % (auto) 7.6 % (10.0-50.0); Mean Corpuscular Hgb Conc. 33.1 g/dL (32.0-36.0); Mean Corpuscular Volume 90.6 fL (80.0-100.0); Monocytes # (auto) 0.9 10 ^3/uL (0-1.3); Monocytes % (auto) 8.9 % (0.0-12.0); Neutrophils # (auto) 7.9 10 ^3/uL (1.6-8.6); Neutrophils % (auto) 82.8 % (37.0-80.0); Platelet Count (auto) 212 10^3/uL (140-450); Red Blood Cells 5.21 10^6/uL (4.5-5.90); Red Cell Distribution Width 13.5 % (11.8-14.3); White Blood Cell 9.6 10^3/uL (4.4-10.8)
[2024-10-27 07:42] LABS: Anion Gap 6 (5-15); Chloride 99 mmol/L (98-107); Potassium 4.2 mmol/L (3.5-5.1); Sodium 141 mmol/L (136-145)
[2024-10-27 07:44] LABS: Calcium 9.3 mg/dL (8.7-10.4)
[2024-10-27 07:49] LABS: BUN/Creatinine Ratio 32.5 (10.0-20.0)
[2024-10-27 07:58] LABS: Blood Urea Nitrogen 27 mg/dL (9-23); Carbon Dioxide 36 mmol/L (20-31); Glucose 68 mg/dL (74-106)
[2024-10-27] MEDS: FUROSEMIDE 40 MG/4 ML VIAL IV SCH (09:14)
[2024-10-27] MEDS: methylPREDNISolone SOD SUCC 40 MG/ML VL IV SCH (09:14)
[2024-10-27] MEDS: EMPAGLIFLOZIN 10 MG TAB PO SCH (09:15)
--- NOTE | 2024-10-27 11:21 | CONS ---
Pharmacy Clinical Information: From Heart Failure Fallout Report on CQM Application, Josh Harmon is a 74 year old male with PMH of HTN, COPD, VA, CABG x4, HFrEF (LVEF 25 - 30%) newly diagnosed. His home medications for heart failure include metoprolol tartrate and furosemide. His inpatient medications include empagliflozin, sacubitril/valsartan, metoprolol tartrate. Consider switching metoprolol tartrate to metoprolol succinate since the 2021 HF guidelines recommend sustained released metoprolol to reduce mortality and hospitalizations. Per WILIAM Ingram, initiate GDMT as tolerated. Add MRA (spironolactone) with stable potassium level. NAMAN SPENCE PHARMACIST Oct 27, 2024 11:21
--- NOTE | 2024-10-27 12:23 | DVHPN2 ---
Subjective Patient denies any symptoms. Reviewed: Care Plan, H&P, Labs, Medications, Previous Orders, Radiology, Other (Consultations) Changes from previous H/P or p: Changes General: Per HPI Objective Vitals Vital Signs Date Time Temp Pulse Resp B/P (MAP) Pulse Ox O2 Delivery O2 Flow Rate FiO2 10/27/24 11:59 66 125/62 10/27/24 10:01 18 96 10/27/24 09:55 Nasal Cannula* 3 32 10/27/24 09:00 97.5 97.5 Intake/Output Intake and Output 10/27/24 07:00 Intake Total 750 ml Output Total 1100 ml Balance -350 ml Intake Oral 650 ml IV Total 100 ml Output Urine Total 1100 ml Exam Patient was assessed in the cardiac catheterization lab. General Appearance: Alert, Oriented X3, Cooperative, No acute distress HEENT: Atraumatic, PERRLA Lungs: Other (Decreased breath sounds bilaterally. Continues to be on 2 L via nasal cannula) Cardiovascular: Regular rate, Normal S1, Normal S2 Abdomen: Normal bowel sounds, Soft, No tenderness Genitourinary: Other Musculoskeletal: Normal sensory function, Normal motor function Neuro: Cranial nerves 3-12 NL Skin: Dry, Intact Psych/Mental Status: Mental status NL, Mood NL Medications Current Medications Medications Dose Ordered Sig/Diallo Route Start Time Stop Time Status Last Admin Dose Admin Ondansetron HCl 4 mg Q4HP PRN IV 10/22/24 07:45 Acetaminophen 650 mg Q6HP PRN PO 10/22/24 07:45 Nitroglycerin 0.4 mg Q5MINP PRN SL 10/22/24 07:45 Morphine Sulfate 2 mg Q30M PRN IV 10/22/24 07:45 Ceftriaxone Sodium 50 ml @ 100 mls/hr DAILY@09 IV 10/22/24 09:00 10/27/24 09:13 100 MLS/HR Albuterol 2.5 mg Q4HR NEB 10/22/24 10:00 10/27/24 09:54 2.5 MG Albuterol 2.5 mg Q2HPRN PRN NEB 10/22/24 07:45 Ipratropium [place] 0.5 mg Q4HR NEB 10/22/24 10:00 10/27/24 09:54 0.5 MG Ipratropium [place] 0.5 mg Q2HPRN PRN NEB 10/22/24 07:45 Budesonide 0.5 mg BID NEB 10/22/24 22:00 10/27/24 06:55 0.5 MG Clopidogrel Bisulfate 75 mg DAILY PO 10/23/24 10:00 10/27/24 09:16 75 MG Aspirin 81 mg DAILY PO 10/23/24 10:00 10/27/24 09:15 81 MG Atorvastatin Calcium 40 mg HS PO 10/22/24 22:00 10/26/24 21:25 40 MG Furosemide 40 mg DAILY IV 10/27/24 10:00 10/27/24 09:14 40 MG Methylprednisolone Sodium Succinate 40 mg DAILY IV 10/27/24 10:00 10/27/24 09:14 40 MG Metoprolol Tartrate 25 mg BID PO 10/26/24 10:30 10/27/24 09:16 25 MG Sacubitril/ Valsartan 1 tab BID PO 10/26/24 22:00 10/27/24 09:15 1 TAB Empaglifozin 10 mg DAILY PO 10/27/24 10:00 10/27/24 09:15 10 MG Laboratory Results Laboratory Tests 10/27/24 06:08 Chemistry Test 10/27/24 06:08 Calcium Level 9.3 mg/dL (8.7-10.4) Microbiology Microbiology Date/Time Source Procedure Growth Status 10/23/24 00:30 Urine - [place] Urine Culture - Final Complete 10/22/24 23:45 Nose MRSA Screen - Final Complete 10/22/24 04:12 Sputum Gram Stain - Final Complete 10/22/24 04:12 Respiratory Culture - Final Haemophilus influenzae Complete 10/22/24 03:50 Blood Blood Culture - Final NO GROWTH AFTER 5 DAYS OF INCUBATION. Complete Labs and/or images reviewed: Labs reviewed by me, Image(s) reviewed by me Assessment/Plan Assessment/Plan Impression: -acute on chronic hypoxic and hypercarbic respiratory failure -COPD with exacerbation -rule out community-acquired pneumonia, probable Gram-positive/Gram-negative etiology -NSTEMI, type 1 secondary to circumflex artery -history of CAD with previous CABG and stent placement -pulmonary cachexia -shock, questionable etiology including sepsis versus cardiogenic -acute diastolic heart failure Plan: Events: Patient ambulating with physical therapy. Continues to require O2 supplementation. Denies any chest pain. -continue dual antiplatelet therapy -continue titration of medications for goal-directed medical therapy per Cardiology -continue Rocephin -continue bronchodilators -cardiology consultation: Recommendations reviewed -patient was stable to transfer to [facility]. Discussed with patient that orders have been placed yesterday to transfer to [facility]. Also discussed with the patient that he may be discharged tomorrow if he was able to increase his ambulation as well as being weaned off of O2 supplementation. Patient verbalized an understanding and agreed to this plan of care. Total time spent with patient discussing and formulating plan of care: 35 minutes. Total time spent with patient and family regarding advance care plannin minutes. This medical document was created using an electronic medical record system with [employer] dictation system. Although this document has been carefully reviewed, there may still be some phonetic and typographical errors. These areas are purely typographical due to imperfections of the software programs, and do not reflect any compromise in the patient's medical care. Plan discussed with: Patient, Other (RN) My Orders Orders - LAMONT ESCOBAR NP Procedure Category Date Status Time * Production Operator CONS 10/26/24 Transmitted Consult Chest Xray 1 View XY 10/27/24 Logged 11:22 * Production Operator CONS 10/27/24 Transmitted Consult Date of Service: Oct 27, 2024 Billing Provider: LAMONT ESCOBAR NP Common Visit Codes: [id number] INP/OBS CARE(HIGH) Secondary Visit Codes: 56935-[id number] CARE PLAN 30 MINUTES LAMONT ESCOBAR NP Oct 27, 2024 12:22
--- NOTE | 2024-10-27 12:39 | DVH ---
CHEST RADIOGRAPH Indication: pna Technique: Single frontal view of the chest was obtained Comparison: XY CHEST XRAY 1 VIEW on DOS: 10/25/24 FINDINGS: Heart appears normal in size. Lungs appear clear without focal airspace opacity, effusion, pneumotho rax. Coarsened interstitial markings. ET and NG tube removed. IMPRESSION: ET and NG tube removed. Otherwise no interval change.
--- NOTE | 2024-10-27 16:15 | DVHDS2 ---
Discharge Summary Date of Admission Oct 22, 2024 at 07:43 Date of Discharge: Oct 27, 2024 Admitting Diagnosis Acute hypoxic respiratory failure Labs/Diagnostic Data: Laboratory Results Test 10/27/24 06:08 10/26/24 04:25 10/25/24 09:02 10/24/24 06:36 White Blood Count 9.6 10^3/uL (4.4-10.8) Red Blood Count 5.21 10^6/uL (4.5-5.90) Hemoglobin 15.6 g/dL (13.5-17.5) Hematocrit 47.2 % (41.0-53.0) Mean Corpuscular Volume 90.6 fL (80.0-100.0) Mean Corpuscular Hemoglobin 30.0 pg (28.0-32.0) Mean Corpuscular Hemoglobin Concent 33.1 g/dL (32.0-36.0) Red Cell Distribution Width 13.5 % (11.8-14.3) Platelet Count 212 10^3/uL (140-450) Mean Platelet Volume 8.1 fL (6.9-10.8) Neutrophils (%) (Auto) 82.8 % (37.0-80.0) Lymphocytes (%) (Auto) 7.6 % (10.0-50.0) Monocytes (%) (Auto) 8.9 % (0.0-12.0) Eosinophils (%) (Auto) 0.6 % (0.0-7.0) Basophils (%) (Auto) 0.1 % (0.0-2.0) Neutrophils # (Auto) 7.9 10 ^3/uL (1.6-8.6) Lymphocytes # (Auto) 0.7 10 ^3/uL (0.4-5.4) Monocytes # (Auto) 0.9 10 ^3/uL (0-1.3) Eosinophils # (Auto) 0.1 10 ^3/uL (0-0.8) Basophils # (Auto) 0 10 ^3/uL (0-0.2) Nucleated Red Blood Cells 0.0 % Sodium Level 141 mmol/L (136-145) Potassium Level 4.2 mmol/L (3.5-5.1) Chloride Level 99 mmol/L (98-107) Carbon Dioxide Level 36 mmol/L (20-31) Anion Gap 6 (5-15) Blood Urea Nitrogen 27 mg/dL (9-23) Creatinine 0.83 mg/dL (0.700-1.30) Glomerular Filtration Rate Calc 93 mL/min (>90) BUN/Creatinine Ratio 32.5 (10.0-20.0) Serum Glucose 68 mg/dL (74-106) Calcium Level 9.3 mg/dL (8.7-10.4) Magnesium Level 2.1 mg/dL (1.6-2.6) Total Bilirubin 0.4 mg/dL (0.2-1.0) Aspartate Amino Transferase (AST) 255 U/L (13-40) Alanine Aminotransferase (ALT) 85 U/L (7-40) Alkaline Phosphatase 60 U/L (46-116) Total Protein 5.9 g/dL (5.7-8.2) Albumin 3.6 g/dL (3.2-4.8) Blood Gas Specimen Type Arterial Blood Gas Sample Site Right radial Blood Gas Patient Temperature 37.0 Arterial Blood Date Drawn [id number] Arterial Blood pH 7.429 (7.350-7.450) Arterial Blood Partial Pressure CO2 46.2 mmHg (35.0-48.0) Arterial Blood Partial Pressure O2 92.6 mmHg (83.0-108.0) Arterial Blood HCO3 29.9 mmol/L (21.0-28.0) Arterial Blood Oxygen Saturation 96.5 % (94.0-98.0) Arterial Blood Base Excess 4.8 mmol/L (-2.0-3.0) Arterial Blood Oxyhemoglobin 95.8 % (94.0-98.0) Arterial Blood Carboxyhemoglobin 0.3 % (0.5-1.5) Arterial Blood Methemoglobin 0.4 % (0.0-1.5) Javad Test Modified Blood Gas Total Hemoglobin 13.80 g/dL (13.5-17.5) Blood Gas Modality Vent - cpap FiO2 % 30.0 Blood Gas PEEP or CPAP 5.0 Blood Gas Set Respiration Rate 20.0 Blood Gas Tidal Volume 550.0 Test 10/24/24 03:46 10/22/24 15:55 10/22/24 15:07 10/22/24 07:10 Phosphorus Level 4.7 mg/dL (2.4-5.1) Lactic Acid Level 1.2 mmol/L (0.4-2.0) Troponin I High Sensitivity 2021 ng/L (</=54) Triglycerides Level 90 mg/dL (< 150) Cholesterol Level 117 mg/dL (< 200) LDL Cholesterol 64 mg/dL (< 100) HDL Cholesterol 38 mg/dL (40-59) Thyroid Stimulating Hormone (TSH) 2.77 uIU/mL (0.55-4.78) Test 10/22/24 06:37 10/22/24 04:22 10/22/24 04:04 10/22/24 03:50 Influenza Type A Antigen Negative (Negative) Influenza Type B Antigen Negative (Negative) SARS-CoV-2 Antigen (Rapid) Negative (NEGATIVE) Blood Gas Critical Value Read Back Yes Blood Gas Notified Whom Md geri martinez Blood Gas Notified Time [id number] Blood Gas Notified By Rt andrew reaves Urine Opiates Screen Neg (NEGATIVE) Urine Fentanyl Screen Neg (NEGATIVE) Urine Barbiturates Screen Neg (NEGATIVE) Urine Phencyclidine Screen Neg (NEGATIVE) Urine Amphetamines Screen Neg (NEGATIVE) Urine Benzodiazepines Screen Neg (NEGATIVE) Urine Cocaine Screen Neg (NEGATIVE) Urine Cannabinoids Screen Neg (NEGATIVE) B-Type Natriuretic Peptide 3521.35 pg/mL (0-100) Test 10/22/24 03:44 POC Glucose 213 mg/dl (70-106) Other Laboratory Tests 10/27/24 06:08 Brief Hx & Hospital Course: History of Present Illness Josh Harmon is a 74-year-old male with past medical history of hypertension, COPD, CHF, VT, and CABG x4 greater than 10 years ago at [facility] who presents to the ED for SOB x several months. 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 reports that patient has smokes cigarettes is also on the patch, drinks alcohol, and denies illicit drug use. Patient's granddaughter who is an ICU nurse reports that patient had abnormal D-dimer had an ultrasound DVT done which was negative. Patient was noted to have to 3+ edema bilateral lower extremities and was given Lasix to start today however was not able to start due to his worsening symptoms and here for evaluation. Family also reports that patient was able to ambulate but was short of breath while speaking no more than 3 words at a time. Patient also took nebulizer treatments with no relief. Family denies any recent illnesses or sick contacts. Course of hospitalization: Patient ended up on mechanical ventilation for his worsening respiratory status. Patient was started on empiric antibiotic therapy. Respiratory culture positive for Haemophilus influenzae. Initial treatment of the patient reveals that his troponin level was elevated, with the patient was started on heparin drip. Patient was taken to the cardiac catheterization lab follow on day of admission, undergoing PTCA and stent placement of his circumflex artery. Patient was successfully weaned off of mechanical ventilation. He was continued on dual antiplatelet therapy. Physical therapy was initiated with the patient. Patient continued to be on 2 L via nasal cannula, with persistent cough. Patient was transferred to [facility] for reasons of repatriation. Patient was agreeable to current plan of care including transfer. All questions answered. Physical examination General: Alert and Oriented x3. No acute distress. Well-nourished. Cachexia Eyes: EOMI. Anicteric. HENT: Moist mucous membranes. Lungs: Clear to auscultation bilaterally. No accessory muscle use. Cardiovascular: Regular rate and rhythm. No murmur. No JVD. Abdomen: Soft, non-tender and non-distended. No palpable masses. Extremities: No edema. Non-tender. Skin: No rashes or lesions. Warm. Neurologic: No focal neurological deficits. CN II-XII grossly intact, but not individually tested. Psychiatric: Cooperative. Appropriate mood and affect. Total time spent with patient discussing and formulating plan of care: 35 minutes. This medical document was created using an electronic medical record system with [employer] dictation system. Although this document has been carefully reviewed, there may still be some phonetic and typographical errors. These areas are purely typographical due to imperfections of the software programs, and do not reflect any compromise in the patient's medical care. Consults/Reason for consult Cardiology: NSTEMI Pulmonology: Acute respiratory failure Operations or Procedures Left heart catheterization Condition at Discharge: Guarded Final Diagnosis/Problems List Acute Respiratory Failure Diagnosis -acute on chronic hypoxic and hypercarbic respiratory failure -COPD with exacerbation -rule out community-acquired pneumonia, probable Gram-positive/Gram-negative etiology -NSTEMI, type 1 secondary to circumflex artery -history of CAD with previous CABG and stent placement -pulmonary cachexia -shock, questionable etiology including sepsis versus cardiogenic -acute diastolic heart failure Discharge Disposition: Acute Care Facility Discharge Instruct/Medications Diet: Cardiac 2g Na,low cholest Activity: Light activity Follow Up/Referral: per Accepting provider Medications: Refer to medicaiton reconciliation form 36 Discharge Statement: "Patient was advised to return to the ER or call 911 if any headaches, dizziness, shortness of breath, chest pain, abdominal pain, bleeding, fevers, or worsening of medical condition. Patient was counseled about treatment plan, medications, possible side effects, patientverbalized understanding. All questions were answered to the best of my ability. This discharge took greater then 30 minutes in planning, reviewing documentation, counseling the patient, and discussing with other team members." ASSESSMENT ASSESSMENT Assessment Acute Respiratory Failure Date of Service: Oct 28, 2024 Billing Provider: LAMONT ESCOBAR NP Common Visit Codes: 89709-FGG/OBS DISCH DAY >30min LAMONT ESCOBAR NP Oct 27, 2024 16:15
[2024-10-27] MEDS: ENSURE CLEAR Apple 8oz Carton PO SCH (18:00)
--- NOTE | 2024-10-27 21:09 | DVHPN2 ---
Progress Note - Dictate Date Seen: Oct 27, 2024 Medical Necessity Reason Pt with a Central, PICC or Fol: Yes The following are medically ne: Garcia Catheter Reason for garcia catheter: Strict I&O Subjective Patient seen and examined at bedside. Remains on supplemental oxygen Overnight events reviewed. vital signs Vital Sign Date Time Temp Pulse Resp B/P (MAP) Pulse Ox O2 Delivery O2 Flow Rate FiO2 10/27/24 17:00 97.9 75 16 120/62 (81) 93 97.9 10/27/24 14:01 Nasal Cannula* 2 28 Total Intake and Output 10/26/24 10/26/24 10/27/24 15:00 23:00 07:00 Intake Total 100 ml 350 ml 300 ml Output Total 500 ml 600 ml Balance 100 ml -150 ml -300 ml medications Current Medications Medications Dose Ordered Sig/Diallo Route Start Time Stop Time Status Last Admin Dose Admin Ondansetron HCl 4 mg Q4HP PRN IV 10/22/24 07:45 Acetaminophen 650 mg Q6HP PRN PO 10/22/24 07:45 Nitroglycerin 0.4 mg Q5MINP PRN SL 10/22/24 07:45 Morphine Sulfate 2 mg Q30M PRN IV 10/22/24 07:45 Ceftriaxone Sodium 50 ml @ 100 mls/hr DAILY@09 IV 10/22/24 09:00 10/27/24 09:13 100 MLS/HR Albuterol 2.5 mg Q4HR NEB 10/22/24 10:00 10/27/24 14:02 2.5 MG Albuterol 2.5 mg Q2HPRN PRN NEB 10/22/24 07:45 Ipratropium [place] 0.5 mg Q4HR NEB 10/22/24 10:00 10/27/24 14:02 0.5 MG Ipratropium [place] 0.5 mg Q2HPRN PRN NEB 10/22/24 07:45 Budesonide 0.5 mg BID NEB 10/22/24 22:00 10/27/24 06:55 0.5 MG Clopidogrel Bisulfate 75 mg DAILY PO 10/23/24 10:00 10/27/24 09:16 75 MG Aspirin 81 mg DAILY PO 10/23/24 10:00 10/27/24 09:15 81 MG Atorvastatin Calcium 40 mg HS PO 10/22/24 22:00 10/26/24 21:25 40 MG Furosemide 40 mg DAILY IV 10/27/24 10:00 10/27/24 09:14 40 MG Methylprednisolone Sodium Succinate 40 mg DAILY IV 10/27/24 10:00 10/27/24 09:14 40 MG Metoprolol Tartrate 25 mg BID PO 10/26/24 10:30 10/27/24 09:16 25 MG Sacubitril/ Valsartan 1 tab BID PO 10/26/24 22:00 10/27/24 09:15 1 TAB Empaglifozin 10 mg DAILY PO 10/27/24 10:00 10/27/24 09:15 10 MG Enteral Nutritional Formula 240 ml BIDWM PO 10/27/24 18:00 objective Gen.: Patient lying in bed in no apparent distress. On supplemental oxygen. Head: Normocephalic, atraumatic. Eyes: EOMI/PERRLA. Ears: Normal hearing. Normal anatomy. Neck/trachea: Trachea midline, supple. Nose: Normal external anatomy. Mouth: Moist mucous membranes. Chest: Decreased air entry bilaterally. No wheezing or rhonchi. Cardiovascular: Positive S1, positive S2. Regular rate and rhythm. Abdomen: Positive bowel sounds in all 4 quadrants. Soft, non-tender, non- distended. : Deferred. Rectal: Deferred. Skin: Warm, dry. Intact. Extremities: 2+ radial pulses bilaterally. No lower extremity edema. Neuro: Awake, alert, oriented x3. No gross motor or sensory deficits. Cranial nerves II through XII intact. Gait not assessed. laboratory and microbiology Laboratory Tests 10/27/24 06:08 Test 10/27/24 06:08 Range/Units Serum Glucose 68 L 74-106 mg/dL Assessment/Plan Impression: Acute on chronic hypoxic respiratory failure On mechanical ventilator Acute COPD exacerbation Shock, septic vs. cardiogenic Coronary artery disease, s/p stents x3 Pulmonary cachexia Acute diastolic CHF Nicotine dependence, on NRT Events: Remains on supplemental oxygen, 2 LPM NC Taper O2 as tolerated Continue antibiotics Incentive spirometry Cardiology recs appreciated Plan for transfer to [facility] for cardio Labs and imaging reviewed. Rest of plan as noted below. Plan: S/p extubation on 10/25/24 On supplemental oxygen Titrate to keep O2 sats above 92%. Continue bronchodilators. Pulmicort IV steroids Continue antibiotics. F/u cultures. Pressors if necessary for hemodynamic support Titrate to keep mean arterial pressure greater than 65 mmHg. Diurese as tolerated w/ Lasix Monitor renal function Monitor electrolytes. Supplement as necessary. Monitor ins and outs. Maintain euvolemia. Tube feeds for nutritional support GI prophylaxis. DVT prophylaxis. Prognosis: Guarded given patient's multiple co-morbidities. Rest of plan per hospitalist and other consultants. Thank you, WILIAM Mclean, for allowing me to participate in this patient's care. Further recommendations will depend on the patient's clinical course. Please do not hesitate to contact me if you have any questions or concerns. This medical document was created using an electronic medical record system with [employer] dictation system. Although these documentations are being carefully reviewed, there may still be some phonetic and typographical changes. The errors are purely typographical, due to imperfection on the software program, and do not reflect any compromise in the patient's medical care. Dietary Evaluation Review Recommendations by RD: Increase Calorie Intake Comments: 1. Increase TF to goal rate of 55 mL/hr as tolerated. Goal rate will provide 1,832 kcals (including propofol) 73 g protein, and 1581 mL H2O (including flushes) per 24 hours. Goal rate will meet ~ 97% daily estimated energy needs and 100% daily estimated protein needs 2. Flush wih 200 mL H20 Q6 2. Advance patient diet when medically feasible to cardiac diet, pending TECHNICAL SALES SUPPORT SPECIALIST approval 3. Continue to monitor TF tolerance, weight, labs, and skin integrity Expected Outcomes/Goals: 1) labs to improve 2) diet to advance 3) f/u in 2-3 days Plan discussed with: Patient, Other (LING Hitchcock) MARCO ANTONIO QUIGLEY MD Oct 27, 2024 21:09
--- NOTE | 2024-10-28 12:42 | ECG ---
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
--- NOTE | 2024-10-28 12:42 | ECG ---
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
== END 2024-10-27 19:25 | disposition short-term general hospital (02) | DRG 853 ==
LOC: EDBD 03:30 → ER 03:30 → OVERFLOW 07:43 → ICU WEST 08:05 → TELE-WESTW 10-26 10:15 → OVERFLOW 10-27 15:53 → WEST WING 10-27 16:06
PROVIDERS: ADMIT Nurse Practitioner Acute Care; ATTEND Nurse Practitioner Acute Care
PROC: 02HV33Z Insertion of Infusion Device into Superior Vena Cava, Percutaneous Approach (ICD-10-PCS; principal; 2024-10-22)
PROC: 0BH17EZ Insertion of Endotracheal Airway into Trachea, Via Natural or Artificial Opening (ICD-10-PCS; 2024-10-22)
PROC: 5A1945Z Respiratory Ventilation, 24-96 Consecutive Hours (ICD-10-PCS; 2024-10-22)
PROC: 027136Z Dilation of Coronary Artery, Two Arteries with Three Drug-eluting Intraluminal Devices, Percutaneous Approach (ICD-10-PCS; 2024-10-23)
PROC: B211YZZ Fluoroscopy of Multiple Coronary Arteries using Other Contrast (ICD-10-PCS; 2024-10-23)
PROC: 4A023N7 Measurement of Cardiac Sampling and Pressure, Left Heart, Percutaneous Approach (ICD-10-PCS; 2024-10-23)
DX: A41.9 Sepsis, unspecified organism (principal); G92.8 Other toxic encephalopathy; I21.4 Non-ST elevation (NSTEMI) myocardial infarction; J96.21 Acute and chronic respiratory failure with hypoxia; J14 Pneumonia due to Hemophilus influenzae; J96.22 Acute and chronic respiratory failure with hypercapnia; R65.21 Severe sepsis with septic shock; N17.0 Acute kidney failure with tubular necrosis; I50.43 Acute on chronic combined systolic (congestive) and diastolic (congestive) heart failure; I25.810 Atherosclerosis of coronary artery bypass graft(s) without angina pectoris; J44.0 Chronic obstructive pulmonary disease with (acute) lower respiratory infection; E87.29 Other acidosis; E87.1 Hypo-osmolality and hyponatremia; B19.10 Unspecified viral hepatitis B without hepatic coma; R64 Cachexia; I44.2 Atrioventricular block, complete; J44.1 Chronic obstructive pulmonary disease with (acute) exacerbation; Z68.1 Body mass index [BMI] 19.9 or less, adult; Z20.822 Contact with and (suspected) exposure to COVID-19; F41.9 Anxiety disorder, unspecified; I36.1 Nonrheumatic tricuspid (valve) insufficiency; E87.5 Hyperkalemia; E78.5 Hyperlipidemia, unspecified; I11.0 Hypertensive heart disease with heart failure; F17.210 Nicotine dependence, cigarettes, uncomplicated; Z83.3 Family history of diabetes mellitus; Z82.49 Family history of ischemic heart disease and other diseases of the circulatory system; Z95.5 Presence of coronary angioplasty implant and graft; I25.2 Old myocardial infarction; Z79.01 Long term (current) use of anticoagulants
CPT/HCPCS: 31500; 36415; 36600; 70450; 71045; 71275; 80048; 80053; 80061; 80307; 82805; 82962; 83605; 83735; 83880; 84100; 84443; 84484; 85025; 87040; 87070; 87081; 87086; 87205; 87426; 87804; 92610; 93005; 93306; 94003; 94640; 96365; 96375; 97163; 99152; 99291; C1874; G0378; J0330; J1815; J2704; J3480; J7060; Q9967